=== PATIENT | female | born 1970 | race Two or more races ===

== ENCOUNTER 2024-10-11 08:01 | Outpatient (OUT) | payer OTHER, SELFPAY ==
--- NOTE | 2024-10-11 | PCN_ITS ---
CARDIAC STRESS TEST Requesting Physician: Shemar Rocha M.D. Procedure Date: 10/11/2024 TREADMILL STRESS TEST INDICATION FOR THE TEST: Chest pain and shortness of breath. The test was discussed with the patient in detail, including risks and benefits, and she was agreeable. Resting heart rate 69 beats per minute. Resting blood pressure 110/76 mm/Hg. The patient was exercised according standard Edward protocol, and she was able to finish 8 minutes and 59 seconds, achieving max METS of 10 and maximal heart rate of 123 beats per minute, which represents only 74% of age predicted maximal heart rate. The patient was not able to reach the desired heart rate due to leg fatigue. The patient also reported some jaw pain, 2/10, during exercise that resolved within 2 minute of rest. She denies any chest pain. Max blood pressure 160/90 mm/Hg. Resting blood pressure showed normal sinus rhythm, heart rate 67 beats per minute, no T or ST changes. EKG during exercises, at peak exercise, and during recovery phase does not shoe any significant T or ST changes or any arrhythmias. CONCLUSIONS: 1. Submaximal stress test, achieving only 74% of age predicted maximum heart rate due to fatigue; therefore, the stress test is considered to be non- diagnostic. 2. Good exercise tolerance. 3. Appropriate heart rate and blood pressure response to exercise. 4. This stress test is negative for exercise induced ischemic changes, as well as level of exercise which was achieved. 5. The patient had mild jaw pain, 2/10, during exercise, resolved within 2 minutes of rest. 6. Recommend to repeat stress test in the form of Lexiscan nuclear stress test to determine echocardiographic study to get adequate test for ischemia evaluation. MTDD
--- NOTE | 2024-10-11 09:58 | PC.NURSE ---
Nursing Note Cardiac Stress Test Reviewed: Medication, allergies and patient history reviewed. Stress Test: [ x] Patient tolerated stress test well. [ ] Patient unable to tolerate walking on treadmill. Switched to Lexiscan stress test. [ x] No chest pain noted per patient [ ] Chest pain that resolved prior to leaving stress lab. [ ] No dyspnea noted. [x ] Dyspnea that resolved prior to leaving stress lab. [x ] Patient left stress lab asymptomatic and hemodynamically stable. [ ] Patient taken to the Emergency Room due to non-resolving symptoms following stress test. [ ] Patient achieved target heart rate. [ x] Patient unable to achieve target heart rate. [ ] Aminophylline administered as reversal agent to Lexiscan (Regadenoson). [ ] Nitro administered. Nursing Comments:Pt had regular stress test done at this time. Pt unable to reach target HR due to fatigue and hip pain. Pt was stopped prior to reaching target HR. Pt had 2/10 jaw pain while exercising that went away within 2 minutes of rest. States this has happened in the past. No chest pain while exercising. Pt stated she felt back to normal prior to ending test.
== END 2024-10-11 08:02 | disposition home or self-care (01) ==
LOC: CARD 08:05
PROVIDERS: PCP Family Medicine; Visit Provider Family Medicine
DX: R07.2 Precordial pain (principal); I10 Essential (primary) hypertension; Z82.49 Family history of ischemic heart disease and other diseases of the circulatory system
CPT/HCPCS: 93017

== ENCOUNTER 2025-04-07 07:30 | Outpatient (OUT) | payer OTHER, SELFPAY ==
--- OUTSIDE RECORDS SUMMARY | 2025-04-07 07:34 | XMS_ITS | CCD ---
Author Organization [facility] CliniSynh Care Team Providers Care [employer] Service Attendant Name Role Phone Arnol Bill Attending Unavailable Arnol Bill Admitting Unavailable SHEMAR NUNEZ Consulting Unavailable SHEMAR NUNEZ Primary Care Unavailable SHEMAR NUNEZ Attending Unavailable SHEMAR NUNEZ Admitting Unavailable SHEMAR NUNEZ Primary Care Unavailable Arnol Bill Attending Unavailable Arnol Bill Admitting Unavailable Provider, None Primary Care Unavailable Shemar Nunez MD Primary Care Provider Shemar Nunez MD Primary Care Provider [phone] Shemar Nunez MD Primary Care Provider ALEXEY PETTIT Attending Unavailable ALEXEY PETTIT Attending Unavailable SHEMAR NUNEZ Attending Unavailable SHEMAR NUNEZ Attending Unavailable SHEMAR NUNEZ Referring Unavailable ALEXEY PETTIT Attending Unavailable SHEMAR NUNEZ Attending Unavailable Allergies Allergy Classification Reported Allergen(s) Allergy Type Date of Onset Reaction(s) Facility (1 source) Pseudoephedrine; Translations: [pseudoephedrine ] Drug Allergy [facility] [place] Repository (1 source) colophony; Translations: [colophony] Propensity to adverse reactions to drug (disorder) [facility] [place] Repository (13 sources) Pinus Strobus Propensity to adverse reactions 3 Unknown [facility] Medications Current Medications Medication Drug Class(es) Dates Sig (Normalized) Sig (Original) amLODIPine 5 mg oral tablet (17 sources) Dihydropyridine Calcium Channel Katharina Start: 08-23-2024 End: 08-15-2025 take 1 tablet by mouth once daily amLODIPine (Norvasc) 5 MG tablet Indications: Primary hypertension (CMS/HCC) Take 1 tablet (5 mg) by mouth Daily 90 tablet 1 02/16/2025 08/15/2025 Active Start: 02-12-2024 End: 08-23-2024 take 1 tablet by mouth once daily amLODIPine (Norvasc) 10 MG tablet Indications: Essential hypertension (CMS/HCC) Take 1 tablet (10 mg) by mouth Daily 30 tablet 5 02/12/2024 08/23/2024 Discontinued (Reorder) aspirin 81 mg delayed release oral tablet (9 sources) Platelet Aggregation Inhibitor, Nonsteroidal Anti-inflammatory Drug Start: 08-24-2024 End: 08-24-2025 take 1 tablet by mouth once daily aspirin 81 MG EC tablet Indications: Precordial chest pain , continuous churn buttermaker current use of antithrombotics/antiplatelets Take 1 tablet (81 mg) by mouth Daily 08/24/2024 08/24/2025 Active Inulin (13 sources) Inulin (Inulin F iber Prebiotic) 833.25 MG capsule as directed Orally Active Magnesium Bisglycinate 100 MG tablet (13 sources) take 2 capsules by mouth at bedtime Magnesium Bisglycinate 100 MG tablet Take 100 mg by mouth See administration instructions. 2 capsules orally at bedtime. Active Potassium Citrate granules (13 sources) Potassium Citrat e granules Take by mouth at bedtime. Active progesterone 200 mg oral capsule (13 sources) Progesterone Start: 01-09-2024 progesterone 200 MG capsule Take 200 mg by mouth See administration instructions 6 days a week 01/09/2024 Active Start: 01-09-2024 take 1 capsule by [facility] once daily progesterone 200 MG capsule Take 200 mg by mouth Daily 01/09/2024 Active Completed/Discontinued Medications Medication Drug Class(es) Dates Sig (Normalized) Sig (Original) Hormone Cream Base (HRT Cream Base Women) cream (5 sources) Start: 11-11-2024 End: 02-16-2025 Hormone Cream Base (HRT Cream Base Women) cream Indications: Hot flashes due to menopause , Menopausal syndrome Use 1 mL nightly days 1 through 25 of the month 11/11/2024 02/16/2025 Discontinued (Therapy completed) Start: 11-11-2024 Hormone Cream Base (HRT Cream Base Women) cream Indications: Hot flashes due to menopause , Menopausal syndrome Use 1 mL nightly days 1 through 25 of the month 11/11/2024 Active losartan potassium 100 mg oral tablet (17 sources) Angiotensin 2 Receptor Katharina Start: 02-12-2024 End: 08-15-2025 take 1 tablet by mouth once daily losartan (Cozaar) 100 MG tablet Indications: Essential hypertension (CMS/HCC) Take 1 tablet (100 mg) by mouth Daily 90 tablet 1 08/23/2024 02/16/2025 Discontinued (Reorder) miSOPROStol 0.2 mg oral tablet (4 sources) Prostaglandin E1 Analog Start: 09-14-2024 End: 11-11-2024 miSOPROStol (Cytotec) 200 MCG tablet Indications: Pelvic pain in female , Thickened endometrium Take all 4 tablets at bedtime the night before procedure 4 tablet 09/14/2024 11/11/2024 Discontinued (Therapy completed) nebivolol 10 mg oral tablet (17 sources) Start: 02-12-2024 End: 08-15-2025 take 1 tablet by mouth once daily nebivolol (Bystolic) 10 MG tablet Indications: Primary hypertension (CMS/HCC) Take 1 tablet (10 mg) by mouth Daily 90 tablet 1 08/23/2024 02/16/2025 Discontinued (Reorder) Problems Active Problems Problem Classification Problem Date Documented Da te Episodic/Chronic Abdominal pain (3 sources) Pain in female pelvis; Translations: [Pelvic and perineal pain] 09-14-2024 Episodic Chronic kidney disease (17 sources) Chronic kidney disease stage 2; Translations: [Chronic kidney disease, stage 2 (mild)] Onset: 06-17-2023 08-04-2024 Chronic Disorders of lipid metabolism (2 sources) Raised low density lipoprotein cholesterol; Translations: [Pure hypercholesterolemia , unspecified] 02-16-2025 Chronic Essential hypertension (19 sources) Essential hypertension; Translations: [Essential (primary) hypertension] Onset: 06-17-2023 08-23-2024 Chronic Genitourinary symptoms and ill-defined conditions (13 sources) Genuine stress incontinence; Translations: [Stress incontinence (female) (male)] Onset: 06-17-2023 06-17-2023 Chronic Genitourinary symptoms and ill-defined conditions (1 source) Urinary symptoms ; Translations: [Unspecified symptoms and signs involving the genitourinary system] 09-14-2024 Episodic Hypertension with complications and secondary hypertension (17 sources) Hypertensive renal disease; Translations: [Hypertensive chronic kidney disease with stage 1 through stage 4 chronic kidney disease, or unspecified chronic kidney disease] Onset: 06-17-2023 08-04-2024 Chronic Malaise and fatigue (13 sources) Chronic fatigue syndrome; Translations: [Chronic fatigue syndrome] Onset: 06-13-2019 10-30-2023 Chronic Menopausal disorders (20 sources) Menopausal syndrome; Translations: [Menopausal and female climacteric states] Onset: 06-17-2023 06-17-2023 Chronic Nonspecific chest pain (2 sources) Precordial pain; Translations: [Precordial pain] 08-23-2024 Episodic Nutritional deficiencies (13 sources) Vitamin D deficiency; Translations: [Vitamin D deficiency, unspecified] Onset: 06-17-2023 06-17-2023 Chronic Other aftercare (2 sources) Long-term current use of drug therapy; Translations: [USP (current) use of antithrombotics/anti platelets] 08-24-2024 Episodic Other connective tissue disease (2 sources) Female pelvic floor dysfunction; Translations: [Other specified disorders of muscle] 09-14-2024 Episodic Other gastrointestinal disorders (13 sources) Irritable bowel syndrome with diarrhea; Translations: [Irritable bowel syndrome with diarrhea] Onset: 06-17-2023 06-17-2023 Chronic Other gastrointestinal disorders (2 sources) Constipation; Translations: [Constipation, unspecified] 08-18-2024 Episodic Other nutritional; endocrine; and metabolic disorders (17 sources) Morbid obesity; Translations: [Morbid (severe) obesity due to excess calories] Onset: 06-17-2023 08-04-2024 Chronic Other screening for suspected conditions (not mental disorders or infectious disease) (1 source) Endometrium thickened; Translations: [Abnormal findings on diagnostic imaging of other specified body structures] 09-14-2024 Chronic Other screening for suspected conditions (not mental disorders or infectious disease) (6 sources) Patient encounter status; Translations: [Encounter for screening mammogram for malignant neoplasm of breast] 08-18-2024 Episodic Other upper respiratory disease (13 sources) Allergic rhinitis; Translations: [Allergic rhinitis, unspecified] Onset: 06-17-2023 06-17-2023 Chronic Ovarian cyst (3 sources) Cyst of left ovary; Translations: [Unspecified ovarian cyst, left side] 09-14-2024 Episodic Residual codes; unclassified (13 sources) Sleep dysfunction with arousal disturbance; Translations: [Other sleep disorders] Onset: 06-17-2023 06-17-2023 Chronic Residual codes; unclassified (2 sources) Family history of cardiac disorder; Translations: [Family history of ischemic heart disease and other diseases of the circulatory system] 08-23-2024 Episodic Residual codes; unclassified (2 sources) History of endometrial ablation; Translations: [Other specified postprocedural states] 08-18-2024 Episodic Residual codes; unclassified (2 sources) Active advance directive (copy within chart) ; Translations: [Other specified health status] 11-03-2024 Episodic Past or Other Problems Problem Classification Problem Date Documented Date Episodic/Chronic Allergic reactions (20 sources) Propensity to adverse reaction; Translations: [Other allergy status, other than to drugs and biological substances] Onset: 08-25-2019 10-30-2023 Episodic Biliary tract disease (13 sources) Cholelithiasis without obstruction; Translations: [Calculus of gallbladder without cholecystitis without obstruction] Onset: 08-26-2023 08-26-2023 Episodic Other connective tissue disease (13 sources) Peroneal tendinitis of left lower limb; Translations: [Peroneal tendinitis, left leg] Onset: 06-17-2023 Resolved: 10-30-2023 10-30-2023 Episodic Other connective tissue disease (13 sources) Plantar fasciitis; Translations: [Plantar fascial fibromatosis] Onset: 06-17-2023 Resolved: 10-30-2023 10-30-2023 Episodic Results Test Name Value Interpretation Reference Range Facility BI MAMMOGRAM SCREENING TOMOS YISIDRAIS BILATERALon 02-21-2025 BI MAMMOGRAM SCREENING TOMOSYNTHESIS BILATERAL This is a summary report. The complete report is available in the patient's medical record. If you cannot access the medical record, please contact the sending organization for a detailed fax or copy. Examination: BI MAMMOGRAM SCREENING TOMOSYNTHESIS BILATERAL Clinical History: screen breast ca Technique: Screening digital mammography study of both breasts was performed with 2-D and 3-D tomosynthesis imaging. Study was compared to the prior exam dated 12/12/2023. Findings: There is no evidence of interval dominant spiculated mass, grouped microcalcifications, or skin thickening which would be suggestive of malignancy. A few benign-appearing calcifications are seen on the left. Partially visualized axillary lymph nodes are noted bilaterally which appear grossly unremarkable. IMPRESSION: Impression: No specific evidence of malignancy seen in either breast. BIRADS 2 - Benign Findings DENSITY: There are scattered areas of fibroglandular density. FOLLOW-UP: Routine Screening Mammogram ELECTRONICALLY SIGNED BY: Porter Ann M.D. Normal Not Available Urinalysis macro (dipstick) panel (U)on 09-14-2024 Bilirubin, UA Negative Negative - 4(70) +++ mg/dL [facility] Blood, UA Negative Negative - 50 Derek/mcL [facility] Clarity, UA Clear [facility] Color, UA Yellow [facility] Glucose, UA Negative Negative - 1999(110) ++++ mg/dL [facility] Interpretation and review of laboratory results Normal [facility] Ketones, UA Negative Negative - 160(16) ++++ mg/dL [facility] Leukocytes, UA Negative Negative - 500+++ Ed/mcL [facility] Nitrite, UA Negative Negative - Positive [facility] pH, UA 6 5 - 9 [facility] Protein, UA Negative Negative - 1999(20) ++++ mg/dL [facility] Spec Grav, UA 1.01 1 - 1.03 [facility] Urobilinogen, UA 1.0 0.2 - 12 mg/dL [facility] Provider Orderson 11-05-2023 Provider Orders [id number] Provider Orders [id number] 05-29-2023 Coding Summary HTMLBase 64 BlzdhateHDj9oPe+PGhl YWQ+FC1XEGLfM14frSLu rA4uZ1WIDUaJIlxuKLGT DVlZEuIbhoXcCE8zmZRy ZXJu IC8+BR7gUQEbWrpifANz k9F7jGN1K02gsy4bRTvb sGY6DISlGdTuwdmco9tr mTp4QMbiNyjrPyMu IJMuyB60QUY7oW97Ap38 lFEheKGfn2xidOz5UbDw VRQsURY4nItiMEzvg8Ng XIDoV10auTEwn3S9 IGNvbGxhcHNlOyBlbXB0 wD0dRGqslrwxn1zzpifq Opw8ll43tOLyf4F3zDZ5 E8RovpF7EMCslEFe DpyqeXSUoA5dwwyso9zs sdtkQqLrALUqXOy8FHm5 BCUdhXbbCuLaBZ08XOR0 JBAwkkKxY8PcQKSk vYknXkN2f0L6Qk6LD7VO YznnB3EVOZYTPGsmnMD+ ZC40en67Z2QtJwyrIan0 ITEnIAG8bIX6qS7g KLLeKAaer5O5xKL1R6Po tbQwsl0oq8wpPVTcPJyx R90pfALfd3J8PVYrnPT5 MMUvoZzcNhKpjY02 Oyc+KSOfzNvvc7DkDvmc k4cne2gdnFk8GquxEKTv jyDtdOcnLPR6o5EaDd2s FFBhcQE3jJC0pT2u EdQbLmT3WOsvK668YiFe sBMfDpaeZ35gN1HhbRJ+ ROHlEmm4XGMwzStpNQ0m R9HrBFXsmiuedYVl nIfbUK9vHGTiibujTUAs eC8sRRFjB0k1PgCiWiJ4 VWooO9AnOCNtzbrjWy41 lF3oOgFcClU4EIuh R2MkgvH2OIZrwAKaQVqq IGU5O37je2F8FXRmDVTb BWG1oAG2qB1kfTmbqiia bGVmdDsgdmVydGlj DZunRNtcZ109RNPwoZsq PkNvZGluZyBEYXRlOiAg MDcvMDYvMjAyMzwvdGQ+ PZWaFDR6zNhdFWBv sZJuZRulSu2ojWbmjGrv EG7kZOCyuillBEMmtY4n XGYgxFOnvNxdVN6lPOJt rjdsm033CiWfRLS9 LWZtuPGvZ9LkdH7hToMk KPZzCJZcH7CgsBGtBScg Q792YJqnJeM2CNUftxQl X4PlJXDzvVjwVzT0 d9T5Pe4Ak6GvxiioM8Le uNFiEjCkCxxvVVo6I9Hc PjwvdHI+HT27UFBuFL91 ZCk7DJS7dSbhFMak BSYjB5BmuP4eUpGlGIVq ZGRkOyc+PHRhYmxlIHdp ZHRoPScxMDAlJyBzdHls UQ1wSp0qTFZiFTLn bKiuoWNxRdOnt3ksGDTo LPuuBD3rhOouL1UtnHM7 WWBjm8g8Bp38H19xZ2Ce dXA+INNtfUK2mPA1 rE4kMoRxTdS5QMgiM027 SlZsmDSwTkqag7jje5bc mUy8AmC2OBXzqkGybHds VWH6l2CbFa67I92j IHdpZHRoPSIxNSUiIHZh iVidnk9dvY7mLg8+PGNv wOZ6iLG7dM3jBzHzNiN6 QHbwB507BjDysIBq Odfmz4bhe5ufsAc9WnAx SBUdsxYgsKetZOQ2z6Yz Gj40J2GuaJlxw7XuXzs6 oh81jELgh2G2sIP9 N5CpQMLnchkrvOUlnDlj OB5cKOAunglxRYXnyU8e JCQeF2r2HbJpKjP4USps U3JvphI6JNAfoWFx CIHweSJSzM0hgsaxr4ur lcgfCeXeUXJiUSe1ZDj6 MPXhzFwlUoTgICX1YeE3 TTZ4jVYjzU9zmAyq psfjqW1sKvg+CVZ9vSGr vZDPPB4aRmjbaBF+PHRk ZTG7wWecFPnlETNuaW9q VZPlD6b1CxDfVvI7 YXxhP1CsixY6VTMvbGIz LQOfrRGDuV0qaekwq0sk ineaAaJjXDMcEId0EDi8 LWFsaWduOiBsZWZ0 GjX7HSV6jNJsnA8hdCgo tzbuaM9vSqj+QmlydGgg LVS0FGd3C0KzUqq1ANCt iKzfZA3owRNhZHpm Eb8aqIktvHcvMW4fTEUg hgfih330GeXqn7ohAPEi wYCzYDxbCUW1W10ja5E1 FPNhIDPjPEB6aZX9 jN1hdZqmsgtptPGvvUhz nlEggNvwOMsmYUxwR193 BURwuZneZbRzBDe3I6Mf Dap6XQHbeEluEH4o cEZoLEmbKc7cxXkctOcd FH3rQEOwzqpwq845LuZi p0vbTWOhaFNtXSiiEPA8 O50hb4P3BIQhCJCu UAQ8gDS8qW0wjGzemqaz bGVmdDsgdmVydGljYWwt CMgaG552XNLsmXulIyMu uLm4P4DzUcq8FZMd lAgjGO7irJAqPQasJo0e tPgfiEgcUJ8vJLCvkkcz g971HwCfp6ajOHEuoYZt ERlcYXY4L22ck7C2 FDZqHIGhRHR4fDS1pQ4n bGlnbjogbGVmdDsgdmVy rLlkNLalDVshM023UJQm cDsnPlBhdGllbnQg AJrjMPe5K4UtBtyebVB+ ML96DILzUY43pQBtpAPk r9gemDs2DfQlLKCgCCF8 qUiqPTszg0YyAXMp X79zdLBsl6Y8SBPhqIvq cOXzUdRirGE3kS7lVKzw ofnzd5vpizlsPdkqt7qc ca68hS29W04iKKmt ZHRoPSIzMCUiIHZhbGln vk2vqZ6wXi7+PGNvbCB3 sLO4kH2lIUGnZoG1EIpi V698YfNpfDYcNzcw w0gxu1wumVi1GvQ5BXRp gvMpxVynGBY3v1GbBe54 W84vKOceURGeBFLwFSAn WRKwuMcrca3inL4h Ii8+YICyxOR7iKT0oA2n ZjRmYsL7TAqvR977XaLm mMPrHkcpH05mE2RwfIG+ SZOrGwn3BISqnUqh OR3daHUkHKniMo1oMCJ7 OvRcCgOyZJanD5ScYFOk sjwggviawKD0POYgGRAx nV08Ev3jxBynCCEy tMRXqS9fhwqpn1vkrzdk DaToYZMoUKu9LVm9BNFg hUblSzSsBYL6FbA6AOZ7 eASvuN4vxTkeensx jG3xA3NvBEGbecgbWa33 iD5cBeZnOzX4DRzuJgv+ A4vNZPQRRWgYW9SvEHUZ VWKKBPvKZr75F5Xq Mjw6TRTapSihUN2rfDAt WLifZx7ndTcevFheFV3e QLHzavvlEFMgiS9lYBMr uMIheSsdGS8zQEFf ylfru768XjDlLZB9BHPb tJNoT2DnvQ1yRmMqFPHr MPGhV9SsfDMtJRolJ838 XSyuItO0ZJAxncSa Y2NpSATrcVfkAbL4q7R1 Sr8yBY8qDJ5tGTW8AI27 DD23fMHxw6O5sML8C1Ak ZGRpbmctcmlnaHQ6 SHYhDDSazI79aJJhNHph Yp9vd4J7g011CBCjTSMv fE53Xr8jcCfkSOOvbZIC cF8ifmjbp6entede HvXmNBLpPWk4KSl7OUNu gXwdPsBsSJN6WfV4WXF4 gVTgiB3tzLmmmmghkM4i Oyc+NTMgWWVhcnM8 J2ReYnh3EHTomCwwUN3f zZMaCRmlLe4tlCxyjKyo TH3wOKGkhefsUYTgoV5e DNJbqATpbEyaNM9o SEWzgszwk649BsCyNJL0 BYItgLMjM4WlkB5fLvLx VJGqIBIqZ4YnuBNjHLbq G345DSqtAeM0TDFm flDvZ6QmBKPzaWeyTuY3 p1I7Ge5MIT2JYYZ3L9Dh Ixa5FBBcqQbnRZ7orVTt SCnmXs1fbOmzdSyn CO0zYLDdjwlqHBVxlO0u RGWwyBZuzHrzMI7mZZTm ikppq942OtAnSBY0NQCz vZIyA9RdoL3rEcIo FHWeEMYpB8JyoBUpDKpt C771EKncAyA9ZPWeumWn D9DtSMHjjTbxXdL0g5Z8 Vd2DfNChG6TuD0c1 Q1HsMaolcDA+NX34WTPo PU19tUXgeQEuu9vkgJv0 HyUnFUYdVOH6eIixTAhm u5HmCPFcB80muUQi w1K5OGHcxOuujRViYmQt lAO6dL7vYErljvnob9my ucikHarnc0iqni31iP12 H27mXHaiDNEnHOEx XOUqSQVecLsyrk2xkB5v Ii8+JPJwsBI1cJD1oU3c OoTuFbI3ARvlA341KnLx oDHgTuhjx7eor1mq uOq3RmEqADTffcUfoQvb JYW3l8OwMd84A06mAPmr ZHRoPSIyMCUiIHZhbGln wb8nvB9wNn6+PC9j i4zamo77mL43eNL+PHRk DTY0uLphBFbkUIAtyK8z SGxaBlX5QJTvTbCdcX72 pRJdCWmbZp0eaOlk xHbsHH1kPIWdzsssz035 RlLxp7adQURmvZSdGIyl ILI0G11id5M3AGHxEXKg ROU9tEX3bG8ruVou bjogbGVmdDsgdmVydGlj QWnaDTvtM465VSZmiBuq ZeTekCHqN6ltekCCWI5y OjwvdGQ+PHRkIHN0 hSzqYIwlBCXnpY7zFOIi W4o2JwIdToR2GRezW9Zg coS6XCBrxWEdCRKmsAJL fT2seslkn0obmbox LvGhXVUyGOm7QPk0XDSg cUsvHjUqAWI4WoX3HFJ3 dMEpnU5suLdpehqecX0h Oyc+RklOOjwvdGQ+ PHTmJSY1iCquFKuePLOs cZ3pXFNuT0d9ClZxBdT3 CTueA9DjjcR1AUGhlKCh HKUfhCATtH4rvpvm z5appzumFbJnKQHiEBr7 VSa6TMGdwCwjWdQeKYO1 HlK5XMA8nEHusO0lhCss cvesuQ9wSkl+TVJO OjwvdGQ+QJZnADB9sGgq CAelWKOsyX7yXOMhP2a2 AbEhXuU4XPapA2GwziU1 IGJvbGQgMTBwdCBU pF1jzeiis1xjjppyFnDv SOGiOFp0YHi0BNZkiPct DwIkCKC4PpW8QHJ9yBOp wD5kwAgnmvsvwM6u Oyc+TPB1ZTX2BQ92LU33 O5LfPkmotEUudFO+PHRh YmxlIHdpZHRoPScxMDAl ToVxyYneWP8bFj3j ZGV (more content not included)... [facility] Coding Summary HTMLBase 64 QmubutahWGo8iCu+PGhl YWQ+AM0VEFPeY78bwOCq sT2kI6QCKCdFSkveVGGB CQdPKmBmdgVlQT4pbXSk ZXJu IC8+JO8iBNPmMeuqbHDr e1D6dFX2F39wee3rYEzm iES8HECwOuPmwkplm5fu nHs0AZbtRhtnTjOd XAEneC60REO8pM25Ud29 kXBebHAck2izzUm8CbKd VCMvHUM7cApzYBfww3Ea UNStT03imYKzy2Z4 IGNvbGxhcHNlOyBlbXB0 iX3aZHgfxgbkj7xdwkjm Xuo6no46vCGrr7J2dMR2 Y0DffnT0EYPhpJVi PkzhdCNPmZ1evghtg3qu cqceBgPrFGUgAEj3DTj5 ULPfdHroAxJwKG48VFP9 JJIsvfZqC1XfTPZa wIqaZpA9q3P7Yd4WR3XA QgsgQ0LWKGMDWSmxmFS+ AS03nv62F8AeNagvKma1 MARvKWK6cHQ3lI6u FJTnCWaoa9H4vEP7M2Rq syVjeq4bp9blUYIdEVtn I14ukUYdr5P8DBMuuNF2 LKAccVpiTsWjhF07 Oyc+WNPrlRbap2AkGktd r4zyh8dhkSs0AjjtIIZr nkCvqMyhLUM5h6ZyJp5z MHJtxTO9mLZ4gN9g MwNnSfP9MMblT915WkCn nKKzQysoA42dO7KddEV+ DWAiFwl0SEJudMxsXW1d E5OlLGDhlxsfvQEj mLcrDN9dWKKedwcdSEWj hH0gSXRiX2d3NkEpVdT9 EDtjE1MtJKBfjgfiQq17 rE1tLrAmWuH5TCah Z0GqvpJ7DXWquMVfNNzh DBT5O79wy8O8YOTkJHTm ZPG3cKU7eS0txFdwpifj bGVmdDsgdmVydGlj ERybMRmeL392ZYGbkVpu PkNvZGluZyBEYXRlOiAg MDcvMDYvMjAyMzwvdGQ+ PUVeRAE7fVzkPZEu dHIkKLryBp4dlZxnsHwi BI2kDTXebvbxNTRgvW3g ZVGksVZnhGksVH5wONBb gmuzg459EiViEGD0 XWOcrGOcN0SrsV1fWnMv NGNySMNsK9IywAGgKHin G029HAsuOrG8XRBmmxQi W4FhYMZiiOnwDuN5 s3N0So3At3LfbufdL1Nk vGNpGxTsMjveEKv4M4Rz PjwvdHI+ZQ37BBBgFR09 CUx1IFB6bBtfFImn OTEuR2OahF1kIdIeUFVk ZGRkOyc+PHRhYmxlIHdp ZHRoPScxMDAlJyBzdHls PU3bIv3qYYMfZKOu qJjwxXLzSyHfp8cyDRPr ATpyJF9axFokS9VdsGD7 UFWup2e9Id90N19eE4Mx dXA+HGRmbOF4cRI4 bR8eIlWqHuA1TYdlZ214 XxYinOIkKxtto7tme6vv yVp1JeV2HMZloeCixFrt ZWN5f0ScNn25T28i IHdpZHRoPSIxNSUiIHZh mKbeuw5vrV9hUl8+PGNv xLV5lVL9mF9cGbVoAcF2 WQleU349VoAljSBp Fmand5pgb7zlhKx1VpFk IDQffsHkiTrnCJT1d0Be Ap73I7KbzOvik4HeMzu8 qe56zWPeo6G8xZC1 O3WcGVDcckmnjZXlkZub DB9fYEJrmsagMBQhiP6v DBJmD1z4DiWqJcO2ATgw F1JuzpK7IOFlvEMa BGSvzDQNiE3kkhblc1tw rxplKtHoTDZeXEv4MMb5 MVJrpRakHcDdEQH2RaY2 FTM6mWQaaR6liDmv uibspO3yOyc+YLJ6vRPp sUEWFR8uKcgbhQM+PHRk FMV3zHvkESgjMCWdyG3c SLMuT3a0XqLsOnN1 RVkzE1RqsdR7ORQdtSTp AEFsoJXCuW0ybvdly0gc nqfeDyYrEQDdVVa5NUz9 LWFsaWduOiBsZWZ0 YtI0UOT4bBGubM8goRrw aveaoP4aOle+QmlydGgg QYL4NIk3U9RvBiz9TTIl mVrjHX9jcVSiLLfx Sq3qmKexcIqtHE1cRJCm rziwd981XmNda1eqTMTt wICcABnvXJU0W35cv6U1 UCZlQVEuYRQ2bLC8 bN9axKyqvxzudFRlgLet qaOyzDmkOSuoSMhzL165 MDGkhRfaDtAgBIr4V0Bi Npg5AIHbeBumPO2a mIZbOOxdZc0hpQvedPgx XU8wJZNtgpgik004XtXf q5fzHDYkwXBeRUefJGF7 L35bh9K4ZSTsPXSz GLJ1lJG0lQ9ynCgbbskn bGVmdDsgdmVydGljYWwt TVdzQ729GBWsoQrlZvJx cBw0B0LmRhg8HYKl iWwxKS6ioDHwCYxoYk1m aYroeEgtBW6eAUIvcfgl d199GsFtw5lsSNEuyZUb YVrzJAG6H71bf2M0 QNBaJTVeEMM7aXI2cG5p bGlnbjogbGVmdDsgdmVy yRmkWImsZRxaO082LSCw cDsnPlBhdGllbnQg PKkeJSq4I3QzWggukRE+ DG29UDEoFI76jFNjwKMp j2cwmHk3CkTrXAHqPUS2 dBneLYwhg7YqJSCz E48fmULak6P3BWIjxYcy lQGyPzEqrZO7fD2gIYsc lwjle4xptmmmCjzij8xo zb10lR19R32mADme ZHRoPSIzMCUiIHZhbGln ft9hnO6rCq4+PGNvbCB3 oVP1iJ1fDBDfAzF4BGxx Y551VjWcvFDwQgai i7vqo3rrnVw5OfZ9EULg bqVffLrlQCU2b0IwHn35 M93aDUukMQZfFLEkAUMq YCFnoNzrac4itQ7f Ii8+MFBadQH5fGC5aQ1a VbPxDiB2GWknP135IfLy uJEbRfgkD90xM0XcpXA+ DBRbSgz4RQTcwVtq TU0ykXHwRSpuYz2sFNG4 QvKoXwQoOCopM0HqDTSr dljjdnbvgPV1JDJnKPCc cH26Cp5bxLstSNKp eTHAvD0ltmgod6ypydar XxNeGSHqBJa4ODq9WMFt yJppQaFhVBK3MfJ2TET3 lVWneZ5xcVavpgar vR2qG2VhUHWskttuQa69 lX3oLfKgCqK7BHabTnv+ E6tYPGLJRUcPP6DrPZEP BBLQOSkWQm17N6He Wvo9SCGgqIgoRG3ooCWr PCleYs1avOkoqBqxQT5f IDUqynguGDEgkO5aNMBx zWZweDsrTH0aUOJk fcaol929PrMlQTB4OVLk dPVcL9PkdU3aTlQoZKDh RUNhD3TzxJQpNTcxG306 PBufOyE0FGUykmBs B9VvGWYloWccBcQ6t5Z4 Ny4hJZ2qKT2jSGZ2RV02 ZN28mHVpd7K9cHK9S7Sp ZGRpbmctcmlnaHQ6 SPAzBRBzuE43mXMaOTle Ce5pc7D6a570IIQzLBSg tI76Jg8fnEnwDEDmzRYW rA9kpdrgb5kzqjrp RjZuHWXxZDf2WKd1GERw xQypZdPtXYL4MxD5ODC9 xKHipS6bfGnmyvlptY2i Oyc+NTMgWWVhcnM8 S8JjUke5PKBuhFzmZQ4b mFQrNEtkEb9mbPxyfChp JM1xQNCaohypGMHdeU7f XIRzaMHybOwsCQ2s NZZyksmtk474LwRxFRN2 QFZoxGVmF3ImuT5rTvQj NDZpYKOgJ8YlqSMqCHmf G620EJcaOeX8FCRh hzVoB5BxQRNgpAbnLtR6 x7F6Jt7FVF2VILP7J7Ol Gya9LBXsyZqbDR1pkVXr VNgyCz7liGlxfOik YF8bQFBofntoKNKnwN1l FHMrdXVvkGntSQ3sWIWu jfnxq229DgSmLAM8BFGp aLZyX0YjlA6sWoEi HKWtOGGfC8PmuDZdYVpe B128EUodAaN8TQRdmcRl I2BzAAMdhGsfPhE9d9P5 Jd0GKFhtzER+PC90 nn22R1XlMqgzQvo3UTTu FQF1mQG3uE8uMXGkMAgr w8R1iGD7U0ZrvvRfot0n h1suOVTkOKvxM60a mJQcu7H7FVSmdOM2JGSl aMhwKzQcuS49Zyh+PGNv cEhoe3CnIvzjh6euf2uw sKy3WpShFGHalaFr qVirCSW2n4KkJn95D31v IHdpZHRoPSIzMCUiIHZh rWfsdz2jeQ8mFp3+PGNv nRD5pHB1dP1nWyNj ZlJ9NOhlO944DvDngNDo Kqrmu3joy2ybgCw2NiOj AZMuvjVlnCysBYU7a2Ci Bd63G5RfpJknd2Ri Qtz6ht50sEJfz8F2jZY4 H9PmAZWymveicZMyhCrr RV2qXTIiirpzHUVmwX4d BCZiZ3d6XyPeVfQ8 VHajM9BwynP8YQLwoBLn XYMcnJEJsK2jnpoux5fw efspBcAuJAKzOWt4IFt2 LWFsaWduOiBsZWZ0 BgS8XGE2eESvzB4psPlh vhtfvU8yBmb+LMb2a6sf hVEhMN9oyKQ9ZN39DJ95 zUWbz3G5aYK2Y9Aq GBRgownywacesRL9QIYb FIFuqU01Ke6fnQkhCn1s PEGoWRL5GOKsaHRfU5Kh qI1uVkXuQULvFSVk M7GjvWLlWZiuA654SEov QuY5LCTmjaMjF5DlSMGx eDflZpS7x2R4Ew0UGZ93 AP82CI86aNQob6U8 mKS9D0IsSNBxnzbrbkej gWK8RRFmUWRsxN59Wj8b qFvqJf5dMWKsHYN7RPCn cYDhG7AfsN1cLhZx SWNhHKJkF9JhbBQjCIaa X057DCuqRbZ0FMUorcFj V6YfFYUxeOauMgN0i8B6 Tf2QCi62BD66QQ99 wDUmx3C5yOB2T4TkWUOn pluhzrxvgQL5CWRnWLZt oJ93Zx2doGedIg8wYSLc ZCF4XODefREyC5Ca kY9zAiPpKJCcOSYoR9Fi bQZlZClrB871XYjqAlB8 EFDpmtSwE6GiLJItiCmx EzM7y1H6By4MEQzu cod2Y7VjDcyczUC+PC90 IPCoEM33tRWpuKRda8dx bCu8WvVrJZOyBKL2cNmt YEgky0BmWKXdY00t [facility] (more content not included)... [facility] US RUQon 05-26-2023 US RUQ CLINICAL HISTORY: Upper abdominal pain. COMPARISON: CT abdomen and pelvis 05/22/2023. TECHNIQUE: Transabdominal ultrasound of the right upper quadrant was performed. FINDINGS: The study is mildly limited by the patient's body habitus. The pancreas appears mildly echogenic, which appears related to mild fatty infiltration on the recent CT. An approximately 1.2 x 1.0 x 0.9 cm simple cyst is noted within the superficial aspect of the otherwise unremarkable ?appearing liver. An approximately 6 mm gallstone is noted within an otherwise unremarkable appearing gallbladder. No reported sonographic Le's sign. There is no abnormal gallbladder distention, wall thickening, pericholecystic fluid, biliary dilatation, ascites, or other findings of concern identified. The common duct measures approximately 3 to 4 mm in caliber at the jorge hepatis. IMPRESSION: CHOLELITHIASIS WITHOUT EVIDENCE OF CHOLECYSTITIS. APPROXIMATELY 1.2 CM SIMPLE LIVER CYST. Final Signed (Electronic Signature): Jeffry Shelley MD 05/28/23 2:40 pm Technologist: JAMA ALLRED [facility] ED Clinical Summaryon 2022 ED Clinical Summary [facility] [place] - Emergency Department [address] [place] [address] ED Clinical Summary PERSON INFORMATION Name: PILI OREILLY Age: 52 Years Sex: FEMALE : 1970 MRN: Acct#: Visit Reason: Chest pain; Body aches; ABDOMINAL/CHEST PAIN Arrival: 05/22/2023 20:02:36 Discharge: 05/22/2023 22:53:00 LOS: 000 02:51 Check In: 05/22/2023 20:02:36 Checkout:05/22/2023 22:53:00 Address: [address] [place] [address] PCP: Provider, None PROVIDER INFORMATION Provider Role Assigned Unassigned Arnol Bill DO ED Provider 05/22/2023 20:11:20 Berenice Causey 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 Nurse 05/22/2023 20:40:02 VITALS INFORMATION Vital Sign Triage Latest Temperature Tympanic Temperature Temporal Artery Pulse Rate 84 bpm 85 bpm O2 Sat 99 % 98 % Respiratory Rate 14 br/min 11 br/min Blood Pressure /86 mmHg /86 mmHg MEDICAL INFORMATION Medications Given: Medication Dose Route Sodium Chloride 0.9% intravenous solution 1,000 mL 1000 mL Initial Volume 250 mL/hr IV Left Antecubital Fossa ketorolac 30 mg IV Push ondansetron 4 mg IV Push Allergy Information: pseudoephedrine; colophony PHYSICIAN DOCUMENTATION DISCHARGE INFORMATION: Discharge Disposition: Home Discharge Location: Home PATIENT EDUCATION INFORMATION Instructions: Abdominal Pain, Adult Follow-Up: With: Address: When: Cole Billings [address] [place], [place] [id number] [facility] (1) In 3 days 05/25/2023 With: Address: When: None Provider [address] [place] [address] Within 3 to 5 days Comments: home return as needed One pain pill for home, if needed Obtain Ultrasound follow up with your physician, or Dr Cole Billings, Gen Surgeon, [facility] Return, if fever, vomit, or unrelieved pain T H OMLEY< ER PHYSICIAN< H B [facility] DIAGNOSIS: Intermittent upper abdominal pain Patient Understands: Yes - Patient/family/careg iver verbalizes understanding of instructions given Comment: [facility] ED Note - Otheron 05-23-2023 ED Note - Other [id number] #1.00OTGTIFF [facility] ED Note - Other [id number] #1.00OTGTIFF [facility] ED Patient Summaryon 023 ED Patient Summary [facility] - Emergency Department [address] [place] [address] [id number] PATIENT DISCHARGE INSTRUCTIONS Patient Information Name: PILI OREILLY Age: 52 Years Date of : 1970 Reason For Visit: Chest pain; Body aches; ABDOMINAL/CHEST PAIN Arrival Time: 05/22/2023 20:02:36 Primary Care Physician: Provider, None Attending Physician: Arnol Bill DO Comment: Visit Diagnosis: Diagnoses This Visit Body aches ([id number]) Chest pain ([id number]) Intermittent upper abdominal pain (R10.10) The Pharmacy at [facility] is open Friday through Friday from 9A to 6P and Friday and Friday from 9A to 5P Prescription Information: If you have been given a prescription for narcotics, seek immediate medical attention if you have any difficulty breathing or any sudden status changes such as confusion and sleepiness. If you or anyone you know is experiencing suicidal thoughts, mental health, alcohol and/or drug addiction problems; contact the [facility] 16/06 Crisis Hotline -Text 4HUDM px 480242. If you received any narcotics, sedation, or any other medication that causes drowsiness for the next 24 hours, unless otherwise directed: ? Do not drive a car. ? Do not operate machinery such as power tools, lawn mowers, drills, sewing machines, or stoves ? Avoid alcoholic beverages and drugs for allergies, nerves, or sleep ? Do not make important personal or business decisions or sign any legal documents With: Address: When: Cole Billings [address] [place], [place] [id number] Business (1) In 3 days 05/25/2023 With: Address: When: None Provider [address] [place] [address] Within 3 to 5 days Comments: home return as needed One pain pill for home, if needed Obtain Ultrasound follow up with your physician, or Dr Cole Billings, [facility] Surgeon, [facility] Return, if fever, vomit, or unrelieved pain T H ZAIDA< ER PHYSICIAN< H B [facility] Medication Information: The exam and treatment you received today in the [facility] Emergency Department were for an urgent problem and are not intended as complete care. It is important for you to follow up with a doctor, nurse practitioner, or physician?s marketing support assistant for ongoing care. If your symptoms become worse or you do not improve as expected and you are unable to reach your usual health care provider, you should return to the Emergency Department, we are available 24 hours a day. For those patients who have received Radiology results, the interpretation of your X-ray as given to you by our Emergency Department physician is only a preliminary report. The Radiologist will review your films and if there is a change in the diagnosis you will be notified by phone. Please make sure you have provided a working phone number so we can reach you if necessary. In the event that you had a lab culture while you were a patient in the Emergency Department, you will be notified by phone if there is a need to change your antibiotic. Please make sure you have provided a working phone number so we can reach you if necessary. [facility] Emergency Department has provided you with a complete list of medications post discharge. Please inform your tire stripper/provider of your visit and for further instruction on these medications. Any specific questions regarding your chronic medications and dosages should be discussed with your primary care physician(s) and/or pharmacist. New Medications Printed Prescriptions [facility] [place] Prescription (ultrasound right upper quad) for upper abd pain. Refills: 0. Medications to Continue That Have Not Changed Other Medications amLODIPine (amLODIPine 10 mg oral tablet) take 1 tablet by mouth once daily. buPROPion (buPROPion 150 mg/24 hours (XL) oral tablet, extended release) 1 tab(s) Oral Every 24 hours scheduled. Refills: 11. clobetasol topical (clobetasol 0.025% topical cream) 1 melina Topical 2 times a day. losartan (losartan 100 mg oral tablet) take 1 tablet by mouth once daily. progesterone (progesterone 100 mg oral capsule) 4 cap(s) Oral every day for 7 Days. triamcinolone topical (Trianex) Topical 2 times a day. Visit Information Allergies: Substance Reaction Symptoms Type Comments colophony Drug pseudoephedrine Drug Vital Signs: Vitals and Measurements this Visit (last charted value for your 05/22/2023 visit) Vital Signs This Visit Temperature Temporal: 36.9 DegC Peripheral Pulse Rate: 85 bpm Heart Rate Monitored: 79 bpm Respiratory Rate: 11 br/min Systolic Blood Pressure: 132 mmHg Diastolic Blood Pressure: 85 mmHg Mean Arterial Pressure, Cuff-Calculation: 98 mmHg Mean Arterial Pressure Cuff-Monitor: 112 mmHg SpO2: 98 % Oxygen Therapy: Room air Measurements This Visit Height/Length Dosin.180 cm Height/Length Es (more content not included)... Normal [facility] Electronic Messagingon 05-23 Electronic Messaging --- --- --- --- --- --- --- --- --- From: Tyrone ([email or web address]), Directtest To: PILI OREILLY Sent: 05/23/23 05:44:46 AM EDT Subject: Discharge Summary Ready to View A summary regarding your recent visit is available in the Documents section of your Health Record. Normal [facility] Lipaseon 05-23-2023 Lipase Level 44.0 IU/L Normal 22.0-51.0 [facility] Comment on above: Performed By: #### 2 815295, [id number], 5784887, [id number], 75147409, 0805210429, [id number] ####[facility] (DEFAULT)[address] [place] [address] .Auto Diff 1on 05-22-2023 Auto [place] % 8 % Normal 1-12 [facility] Comment on above: Performed By: #### 2 948742, [id number], 4931785, 0991734706, 54034853, 0869906749, [id number] ####[facility] (DEFAULT)[address] [place] [address] Baso Abs# 0.0 x10 Normal 0.0-0.2 [facility] Comment on above: Performed By: #### 2 081853, [id number], 2198019, 0662664635, 16656645, 4904216038, [id number] ####[facility] (DEFAULT)[address] [place] [address] Basophils/100 WBC (Bld) 0.7 % Normal 0.2-2.0 [facility] Comment on above: Performed By: #### 2 944802, 5375756307, 1180530, 1359576562, 91525238, 7458357019, [id number] ####[facility] (DEFAULT)[address] [place], [place] [id number] Eos Abs# 0.2 x10 Normal 0.0-0.4 [facility] Comment on above: Performed By: #### 2 394869, [id number], 6568089, 4198749822, 08751375, 7410305281, 0370192191 ####[facility] (DEFAULT)[address] [place] [address] Eosinophils/100 WBC (Bld) 3.5 % Normal 0.9-4.0 [facility] Comment on above: Performed By: #### 2 232040, 6305911715, 9390686, 8159349339, 60499538, 9422623909, 8671480340 ####[facility] (DEFAULT)[address] [place] [address] Lymph Abs# 1.1 x10 Low 1.3-2.9 [facility] Comment on above: Performed By: #### 2 955724, 9112950266, 6373029, 5400088242, 61918102, 1629786655, 5924684061 ####[facility] (DEFAULT)[address] [place] [address] Lymphocytes/100 WBC (Bld) 23 % Normal 14-48 [facility] Comment on above: Performed By: #### 2 861945, 7550170247, 6613540, 6757536705, 20489785, 3455248766, 6906873289 ####[facility] (DEFAULT)[address] [place] [address] [place] Abs# 0.4 x10 Normal 0.0-0.8 [facility] Comment on above: Performed By: #### 2 941291, 3843322691, 1819034, 0413486691, 14321302, 6781065189, 5455753593 ####[facility] (DEFAULT)[address] [place] [address] Neut Abs# 3.1 x10 Normal 1.5-9.2 [facility] Comment on above: Performed By: #### 2 283327, 6082699631, 2382715, 0743041616, 63351793, 6144296752, 8446307099 ####[facility] (DEFAULT)[address] [place] [address] Neutrophils/100 WBC (Bld) 65 % Normal 44-88 [facility] Comment on above: Performed By: #### 2 251626, 7174057901, 8879076, 3140156960, 62304438, 7455501615, 8766264156 ####[facility] (DEFAULT)[address] [place] [address] CBC w/ Auto Diffon 3 Erythrocyte distribution width (RBC) [Ratio] 13.8 % Normal 11.5-15.0 [facility] Comment on above: Performed By: #### 2 609150, 0940414787, 7731105, 8877164272, 45563144, 2859739593, 3865712808 ####[facility] (DEFAULT)[address] [place] [address] Hematocrit (Bld) [Volume fraction] 40.8 % High 33.7-40.4 [facility] Comment on above: Performed By: #### 2 772021, 0693036317, 8430841, 9776959661, 65994384, 7395741034, 9994401664 ####[facility] (DEFAULT)[address] [place] [address] Hemoglobin (Bld) [Mass/Vol] 13.7 g/dL Normal 11.3-15.9 [facility] Comment on above: Performed By: #### 2 924893, 6883968610, 2931878, 7279571950, 54749201, 6487013497, 7807009117 ####[facility] (DEFAULT)[address] [place] [address] MCH (RBC) [Entitic mass] 29 pg Normal 24-34 [facility] Comment on above: Performed By: #### 2 601393, 5812480738, 4484358, 1107943941, 58741438, 7147340620, 5207178016 ####[facility] (DEFAULT)[address] [place] [address] MCHC (RBC) [Mass/Vol] 34 g/dL Normal 26-37 [facility] Comment on above: Performed By: #### 2 145616, 9157868961, 6210773, 2726080312, 18622740, 9894501653, 5051356616 ####[facility] (DEFAULT)[address] [place] [address] MCV (RBC) [Entitic vol] 87 fL Normal 81-100 [facility] Comment on above: Performed By: #### 2 991196, 1080678658, 2959065, 2343371726, 18129582, 0908616964, 0321504913 ####[facility] (DEFAULT)[address] [place] [address] Platelet 249 x10 Normal 138-427 [facility] Comment on above: Performed By: #### 2 912320, 9736925194, 6552678, 2728905635, 67251208, 8795845236, 5950649027 ####[facility] (DEFAULT)[address] [place] [address] Platelet mean volume (Bld) [Entitic vol] 7.9 fL Normal 6.3-10.2 [facility] Comment on above: Performed By: #### 2 410838, 7411990331, 7687317, 8516126461, 66968084, 7688145443, 5960038437 ####[facility] (DEFAULT)[address] [place] [address] RBC 4.68 x10 Normal 3.70-5.30 [facility] Comment on above: Performed By: #### 2 930079, 7353166340, 0329091, 7430984465, 48120282, 8602441691, 7102933622 ####[facility] (DEFAULT)[address] [place] [address] WBC 4.7 x10 Normal 3.5-10.5 [facility] Comment on above: Performed By: #### 2 666111, 1184140808, 5343517, 3466919444, 91799548, 9534135365, 3698811516 ####[facility] (DEFAULT)[address] [address]40[address] Man Diff? Auto Invalid Interpretation Code [facility] Comment on above: Performed By: #### 2 152077, 2824829262, 4754564, 0945690283, 58328717, 6290944555, 3250343118 ####[facility] (DEFAULT)[address] [place] [address] CMP Standardon 05-22-2023 eGFR Non AA 49 mL/min/1.73m2 Invalid Interpretation Code [facility] Comment on above: Performed By: #### 2 441558, 9779808947, 0616114, 9186294390, 76555472, 0323509194, 3442428179 ####[facility] (DEFAULT)[address] [place] [address] eGFR AA 60 mL/min/1.73m2 Invalid Interpretation Code [facility] Comment on above: Performed By: #### 2 346532, 9622894603, 6188072, 4974883668, 85701949, 4733994467, 3310299236 ####[facility] (DEFAULT)[address] [place] [address] 30681 Albumin/Globulin [Mass ratio] 1.2 {ratio} Low 1.4-2.6 [facility] Comment on above: Performed By: #### 2 776194, 3695386474, 1203157, 7448239495, 70888214, 9547769246, 8268753704 ####[facility] (DEFAULT)[address] [place] [address] 09047 Anion gap [Moles/Vol] 10.6 mmol/L Normal 5.0-19.0 [facility] Comment on above: Performed By: #### 2 022901, 2773587128, 5948819, 7337016100, 71942495, 0142943133, 4690905933 ####[facility] (DEFAULT)[address] [place] [address] 15243 Globulin (S) [Mass/Vol] 3.1 g/dL Normal 1.5-4.3 [facility] Comment on above: Performed By: #### 2 871541, 2029845787, 4877325, 7179029973, 45235940, 6501587813, 5666775358 ####[facility] (DEFAULT)[address] [place] [address] Osmolality 279 mOsm/L Invalid Interpretation Code [facility] Comment on above: Performed By: #### 2 869118, 5493732373, 7057929, 2927645051, 67809242, 1291648536, 3281496947 ####[facility] (DEFAULT)[address] [place] [address] Urea nitrogen/Creatinine [Mass ratio] 18.2 mg/mg High 4.6-16.2 [facility] Comment on above: Performed By: #### 2 207774, 6074948259, 7835993, 9755746839, 79953707, 2846845649, 6309130592 ####[facility] (DEFAULT)[address] [place] [address] Albumin [Mass/Vol] 3.9 g/dL Normal 3.5-5.0 [facility] Comment on above: Performed By: #### 2 105663, 1270730210, 0325870, 9139500718, 27887197, 8389527593, 5738334383 ####[facility] (DEFAULT)[address] [place] [address] 06423 Alk Phos 89 IU/L Normal 32-91 [facility] Comment on above: Performed By: #### 2 183556, 1850561717, 8020452, 2123683991, 51629029, 7051094795, 1245002872 ####[facility] (DEFAULT)[address] [place] [address] 34113 ALT [Catalytic activity/Vol] 108.0 U/L High 14.0-54.0 [facility] Comment on above: Performed By: #### 2 380696, 0192176360, 7012802, 8638473861, 54589490, 5727364169, 5793093896 ####[facility] (DEFAULT)[address] [place] [address] 99227 AST [Catalytic activity/Vol] 98 U/L High 15-41 [facility] Comment on above: Performed By: #### 2 827944, 9036214875, 7214744, 5919667585, 11403305, 8218156290, 1808700917 ####[facility] (DEFAULT)[address] [place] [address] 83021 Bili Total 0.8 mg/dL Normal 0.3-1.2 [facility] Comment on above: Performed By: #### 2 291459, 9776628421, 6511318, 6213704585, 91554791, 5412344097, 1631822492 ####[facility] (DEFAULT)[address] [place] [address] 71063 Calcium [Mass/Vol] 9.1 mg/dL Normal 8.9-10.3 [facility] Comment on above: Performed By: #### 2 813982, 3632961513, 7798212, 0944895638, 10010232, 0110814265, 0364639881 ####[facility] (DEFAULT)[address] [place] [address] 42355 Chloride [Moles/Vol] 107 mmol/L Normal 101-111 [facility] Comment on above: Performed By: #### 2 887000, 8602514898, 1990562, 2275066956, 39511767, 1454794529, 7779886475 ####[facility] (DEFAULT)[address] [place] [address] 43778 CO2 [Moles/Vol] 24 mmol/L Normal 21-32 [facility] Comment on above: Performed By: #### 2 711330, 5306724440, 5576401, 6429193580, 18621189, 9313090522, 8065900501 ####[facility] (DEFAULT)[address] [place] [address] 38302 Creatinine [Mass/Vol] 1.15 mg/dL Normal 0.60-1.30 [facility] Comment on above: Performed By: #### 2 291408, 1775587465, 0732425, 9448660300, 36405197, 8837813072, 7292964949 ####[facility] (DEFAULT)[address] [place] [address] 58265 Glucose [Mass/Vol] 99.0 mg/dL Normal 74.0-118.0 [facility] Comment on above: Performed By: #### 2 546924, 6588566737, 8436172, 3579184621, 12311524, 8541722486, 5376820704 ####[facility] (DEFAULT)[address] [place] [address] 32333 Potassium [Moles/Vol] 3.6 mmol/L Normal 3.6-5.1 [facility] Comment on above: Performed By: #### 2 636358, 1166339807, 8161932, 1599314557, 10184245, 8989997544, 9559345749 ####[facility] (DEFAULT)[address] [place] [address] 46047 Protein [Mass/Vol] 7.0 g/dL Normal 6.5-8.1 [facility] Comment on above: Performed By: #### 2 542734, 3677325671, 4060247, 3800132754, 82151651, 9043188920, 1907240219 ####[facility] (DEFAULT)[address] [place] [address] 48727 Sodium [Moles/Vol] 138.0 mmol/L Normal 136.0-144.0 [facility] Comment on above: Performed By: #### 2 021781, 7642645192, 0253266, 0858558164, 21046803, 1636069891, 3265051443 ####[facility] (DEFAULT)[address] [place] [address] 00961 Urea nitrogen [Mass/Vol] 21 mg/dL Normal 8-26 [facility] Comment on above: Performed By: #### 2 969579, 1024659439, 9567738, 4198472672, 12409009, 4286649300, 3500055670 ####[facility] (DEFAULT[address] [address] [address] Abdomen/Pelvis w/o Contra yessynoé 05-22-2023 CT Abdomen/Pelvis w/o Contrast CLINICAL HISTORY: Intermittent left upper quadrant/chest pain. COMPARISON: None available. TECHNIQUE: Spiral imaging of the abdomen and pelvis was obtained without contrast. Multiplanar reconstructions were acquired at the CT console. All CT scans at this facility use dose modulation, iterative reconstruction, and/or weight based dosing when appropriate to reduce radiation dose to as low as reasonably achievable. FINDINGS: An approximately 3 cm low density left ovarian cyst is present. There is no free fluid, inflammatory changes, abnormal bowel dilatation, lymphadenopathy, or other acute findings identified. An approximately 2-3 mm calcified gallstone is noted within the dependent aspect of otherwise unremarkable appearing gallbladder. An approximately 1.2 cm well-defined fluid density cyst is noted within the anterolateral aspect of the otherwise unremarkable?appeari ng liver. The spleen, adrenal glands, pancreas, kidneys, great vessels, bowel loops, appendix, uterus, adnexa, urinary bladder, and additional images of the pelvis are unremarkable. Mild to moderate degenerative changes of the thoracolumbar spine are present. IMPRESSION: APPROXIMATELY 3 CM LOW-DENSITY LEFT OVARIAN CYST. NO FREE FLUID OR OTHER ACUTE FINDINGS IDENTIFIED. CHOLELITHIASIS. Final Signed (Electronic Signature): Jeffry Shelley MD 05/23/23 9:52 am Technologist: ASA ZULUAGA [facility] ED Note - Physicianon 2022 ED Note - Physician Patient: PILI OREILLY Age: 52 years Sex: FEMALE : 1970 Associated Diagnoses: Intermittent upper abdominal pain Author: Arnol Bill DO Basic Information Time seen: Date & time 05/22/2023 20:12:00. History source: Patient. Arrival mode: Private vehicle, walking. History limitation: None. History of Present Illness The patient presents with This patient, who is in good health, presents to the emergency room for 3 episodes of discomfort, this being the third, over the past several months, seems to be mid upper epigastric and radiates across to the right to the left, last from 2 to 6 hours and goes away without much medication, she saw her family doctor, who recommended the next time this occurred to come to the emergency room, she has not yet been set up for any ultrasound scanning or similar. She is not a diabetic, she has had no cardiac conditions, she has no chronic lung disorders, medication taken for this discomfort which has been present for couple hours today was none. There has been some radiation to the back, some radiation to the left lower chest some radiation to the left lower abdomen. 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 The discomfort is dull and can intensifies and goes away. Not been associated with vomiting or diarrhea, On exam, she is pleasant alert, oriented, neck is supple, she has mild discomfort she is holding her mid upper epigastric area, she is tender in the area between the umbilicus and the xiphoid, bowel sounds are normal, she is minimally overweight, otherwise her HEENT exam is normal, neck is supple, there is no anterior or posterior supraclavicular nodes, her lungs are clear, she ventilates equally, she is not tachypneic, heart rate and rhythm is regular murmur, PMI left chest, she has good radial dorsalis pedis pulses, the abdomen is soft line discomfort bowel sounds are normal. She has no rebound or rigidity, extremities are nonswollen nontender skin is warm and dry. Neurologic exam is symmetric and intact. She was medicated with Zofran and ketorolac, with relief of discomfort.. Medical Decision Making Orders Launch Orders Nutrition Services: Diet Order (Order): 05/22/2023 20:31 EDT, NPO, Nursing Isolation Status: None, Constant Indicator Laboratory: Urinalysis with Culture, if indicated Standard (Order): Urine, Stat collect, 05/22/2023 20:33 EDT, Nurse collect Troponin I High Sensitivity (Order): Blood, Stat collect, 05/22/2023 20:32 EDT, Lab Collect CMP Standard (Order): Blood, Stat collect, 05/22/2023 20:32 EDT, Lab Collect CBC w/ Auto Diff (Order): Blood, Stat collect, 05/22/2023 20:32 EDT, Lab Collect Patient Care: Cardiac Monitoring (Order): 05/22/2023 20:34 EDT, Constant Order Pharmacy: ketorolac (Order): 30 mg, IV Push, Once ondansetron (Order): 4 mg, IV Push, Once Sodium Chloride 0.9% intravenous solution 1000 mL (Order): 250 mL/hr, IV Cardiovascular: EKG (Order): 05/22/2023 20:33 EDT, OTHER - See Associated Diagnosis, Launch Orders Radiology: CT Abdomen/Pelvis w/o Contrast (Order): 05/22/2023 20:40 EDT Stat, abd pain, Allow Modification Per Radiologist, Transport Mode: Wheelchair, No, Launch Orders Laboratory: Lipase Level (Order): Blood, Stat collect, 05/22/2023 22:14 EDT, Lab Collect. Results review: Interpretation Abnormal results Slight elevation in ALT AST. Radiology results: CT examination did not reveal any significant findings. SHe did have a 3 cm left ovarian cyst, which I do not think was the cause of her problem, she states that she sees Dr. Lynch and will follow-up with her regarding that problem.. Notes: EKG, 2012 hrs., 22 May, rate 76, no evidence of acute OH or ischemia, no prior EKGs this facility. No acuity to this reading. Emergency room physician reading.. Reexamination/ Reevaluation Vital signs Prior to discharge, patient states her discomfort is only totally gone, told her I will give her a pain pill for home, arrange an ultrasound for the morning, she has only been n.p.o. for about 6 hours. Her abdomen is soft, she is comfortable, I told her about the AST ALT slight elevations, that they were not too concerning at this time. I told her that her symptoms sound like gallbladder. And further evaluation will be needed by ultrasound. We can try to set her up first thing in the morning on 23 May, so that she will be informed of the results then. Impression and Plan Diagnosis Intermittent upper abdominal pain ([id number] R10.10, Discharge, Medical) Plan Condition: Improved. Disposition: Discharged: time 05/22/2023 22:24:00. Prescriptions: Launch prescriptions Pharmacy: ultrasound right upper quad (Prescribe): See Instructions, for upper abd pain, 1 EA, 0 Refill(s), Launch prescriptions Pharmacy: [facility] #1 Tab acetaminophen-oxyCOD ONE 325 mg-5 mg (Order): 1 packet(s), PO, Once. Patient was given the follow (more content not included)... Normal [facility] Extra Redon 05-22-2023 Tube Collected Yes Invalid Interpretation Code [facility] Comment on above: Performed By: #### 2 [id number] ####[facility] (DEFAULT)[address] [place] [address] TnI HSon 05-22-2023 Troponin I High Sensitivity <2.3 Normal <=15.0 [facility] Comment on above: Performed By: #### 2 [id number] ####[facility] (DEFAULT)[address] [place] [address] SCREENING MAMMOGRAM W/JUSTIN, BILATERAL*on 12-12-2022 SCREENING MAMMOGRAM W/JUSTIN, BILATERAL* CLINICAL HISTORY: Screening Mammogram COMPARISON: Priors from 2020, 2019, 2018, 2009 TECHNIQUE: 2D and 3D mammogram imaging of both breasts was performed. RESULT: DENSITY: There are scattered areas of fibroglandular density. There is no suspicious mass, asymmetry, architectural distortion, or calcification. No significant change since the prior mammograms. IMPRESSION: BIRADS 1 : NEGATIVE, NORMAL INTERVAL FOLLOW UP FOLLOW-UP: 12 months DENSITY: Scattered MAMMOGRAPHY IS VERY IMPORTANT TO YOUR HEALTH. THE CURRENT [employer] OF [employer] AND N[employer] COMPREHENSIVE CANCER NETWORK GUIDELINES RECOMMENDS ANNUAL MAMMOGRAPHY BEGINNING AT AGE 39 THIS FACILITY USES A REMINDER SYSTEM TO ENSURE ALL PATIENTS RECEIVE REMINDER NOTIFICATIONS AT THE APPROPRIATE TIME BASED ON THE RECOMMENDATIONS OF THIS EXAM. Board Certified Radiologist. Accredited by the ACR and FDA. Report reported and signed by Haile Arroyo on 12/16/2022 0953 Normal [facility] 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 Complete Blood Counton 02-01 Erythrocyte distribution width (RBC) [Ratio] 12.9 % Normal 11.0-15.0 [facility] 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 Comment on above: Performed By: #### C BC #### [facility] [address] [place], [place] [id number] Hematocrit (Bld) [Volume fraction] 42.8 % Normal 35.0-47.0 [facility] Comment on above: Performed By: #### C BC #### [facility] [address] [place], [place] [id number] Hemoglobin (Bld) [Mass/Vol] 14.1 g/dL Normal 11.6-15.5 [facility] Comment on above: Performed By: #### C BC #### [facility] [address], [place] [id number] MCH (RBC) [Entitic mass] 29.9 pg Normal 27.0-33.0 [facility] Comment on above: Performed By: #### C BC #### [facility] [address], [place] [id number] MCHC (RBC) [Mass/Vol] 32.9 g/dL Normal 32.0-36.0 [facility] Comment on above: Performed By: #### C BC #### [facility] [address], [place] [id number] MCV (RBC) [Entitic vol] 91 fL Normal 80-100 [facility] Comment on above: Performed By: #### C BC #### [facility] [address], [place] [id number] Platelet mean volume (Bld) [Entitic vol] 9.90 fL Normal 7.50-12.50 [facility] Comment on above: Performed By: #### C BC #### [facility] [address], [place] [id number] Platelets (Bld) [#/Vol] 273 10*3/uL Normal 140-400 [facility] Comment on above: Performed By: #### C BC #### [facility] [address], [place] [id number] RBC (Bld) [#/Vol] 4.72 10*6/uL Normal 3.90-5.20 [facility] Comment on above: Performed By: #### C BC #### [facility] [address], [place] [id number] RDW-SD 42.6 fL Normal 37.0-50.0 [facility] Special[facility] Comment on above: Performed By: #### C BC #### [facility] [address], [place] [id number] WBC (Bld) [#/Vol] 4.6 10*3/uL Normal 3.8-11.0 [facility] 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 Comment on above: Performed By: #### C BC #### [facility] [address], [place] [id number] Hemoglobin A1Con 02-01-2022 EAG 116.89 Normal [facility] Special[facility] Comment on above: Performed By: #### A 1C #### [facility] [address], [place] [id number] HbA1c (Bld) [Mass fraction] 5.7 % Normal 4.0-6.0 [facility] 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 Comment on above: Performed By: #### A 1C #### [facility] [address], [place] [id number] Ernesto 04-25-2021 L Specimen: [id number] Received: 04/25/21 Status: STEPHEN Dillon Num: [id number] Spec Type: Surgical Subm Dr: ANAYELI WHALEY DO Tissues: A Ovary - Cyst, Non-Neoplastic (LT OVARY) B Endometrium - Curettings (EMC) Procedures: HE Stain/3, Gross/Micro L4/2 Patient Age/Sex Location Account Attending Physician ArguetaOsmanPili Ervin 50/F [place] [id number] JOVANAANAYELI DO SPEC NUM: [id number] RECD: 04/25/21 STATUS: STEPHEN DILLON NUM: [id number] SUMAYA: 04/25/21 [facility] DR: ANAYELI WHALEY DO ENTERED: 04/25/[address] [facility] [address]: Daquan [facility] SPEC TYPE: Surgical DEPT: S ORDERED: HE Stain/3, Gross/Micro L4/2 ORDERED: HE Stain/3, Gross/Micro L4/2 Pathological Diagnosis A. Left ovarian cyst, cystectomy: - Cystoadenoma. B. Endometrium, curettings: - Minute fragments of superficial endometrium with tubal metaplasia. - Minute fragments of benign squamous epithelium. Clinical Information Excessive/frequent menses, dysmenorrhea, left ovarian cyst Gross Description A. Received in a container filled with formalin labeled with the patient's name, number and left ovarian cyst wall , specimen is a collapsed cystic wall measuring 2.5 x 1.1 x 0.5 cm. Serial sectioning through the cystic wall revealing a wall thickness of 0.05 cm with smooth internal and external surface. Entirely submitted in one cassette labeled A1. (/YJ) B. Received in a container filled with formalin labeled with the patient's name, number and endometrial curettings , are multiple fragments of pink-carranza soft tissue admixed with mucus and entirely submitted in one cassette labeled B1. (YJ) Specimen: [id number] Received: 04/25/21 Status: STEPHEN Wilma Num: [id number] Spec Type: Surgical Subm Dr: ANAYELI WHALEY DO Tissues: A Ovary - Cyst, Non-Neoplastic (LT OVARY) B Endometrium - Curettings (EMC) Procedures: HE Stain/3, Gross/Micro L4/2 Patient: Pili Nino [id number] (Continued) Specimen: [id number] Received: 04/25/21 (Continued) Signed (signature on file) Luis Zavala MD 04/26/21 1150 Specimen: [id number] Received: 04/25/21 Status: STEPHEN Dillon Num: [id number] Spec Type: Surgical Subm Dr: ANAYELI WHALEY DO Tissues: A Ovary - Cyst, Non-Neoplastic (LT OVARY) B Endometrium - Curettings (EMC) Procedures: HE Stain/3, Gross/Micro L4/2 Patient: KendallOsmanArcadioPili Andersen [id number] (Continued) Specimen: [id number] Received: 04/25/21 (Continued) Microscopic Description A. One glass slide with H E stained material has been examined. The microscopic findings support the above pathologic diagnosis. B. Two glass slides with H E stained material have been examined. The microscopic findings support the above pathologic diagnosis. CPT Codes 46877?2 Specimen: [id number] Received: 04/25/21 Status: STEPHEN Dillon Num: [id number] Spec Type: Surgical Subm Dr: ANAYELI WHALEY DO Tissues: A Ovary - Cyst, Non-Neoplastic (LT OVARY) B Endometrium - Curettings (EMC) Procedures: HE Stain/3, Gross/Micro L4/2 Patient: Pili Nino [id number] (Continued) Signed (signature on file) Luis Zavala MD 04/26/21 1150 [facility] Vital Signs Date Time Vital Sign Value Performing Clinician Faci jerryy 02-16-2025 13:53-0400 Body height 157.5 cm Shemar Nunez MD Work Phone: [facility] 02-16-2025 13:53-0400 Body mass index (BMI) [Ratio] 37.49 kg/m2 Shemar Nunez MD Work Phone: [facility] 02-16-2025 13:53-0400 Body weight 92.99 kg Shemar Nunez MD Work Phone: [facility] 02-16-2025 13:53-0400 Diastolic blood pressure 72 mm[Hg] Shemar Nunez MD Work Phone: [facility] 02-16-2025 13:53-0400 Heart rate 67 /min Shemar Nunez MD Work Phone: [facility] 02-16-2025 13:53-0400 SaO2% (BldA) [Mass fraction] 97 % Shemar Nunez MD Work Phone: [facility] 02-16-2025 13:53-0400 Systolic blood pressure 118 mm[Hg] Shemar Nunez MD Work Phone: [facility] 11-11-2024 15:36-0500 Body height 157.5 cm Shemar Nunez MD Work Phone: [facility] 11-11-2024 15:36-0500 Body mass index (BMI) [Ratio] 38.23 kg/m2 Shemar Nnuez MD Work Phone: [facility] 11-11-2024 15:36-0500 Body weight 94.8 kg Shemar Nunez MD Work Phone: [facility] 11-11-2024 15:36-0500 Diastolic blood pressure 76 mm[Hg] Shemar Nunez MD Work Phone: [facility] 11-11-2024 15:36-0500 Heart rate 86 /min Shemar Nunez MD Work Phone: [facility] 11-11-2024 15:36-0500 SaO2% (BldA) [Mass fraction] 97 % Shemar Nunez MD Work Phone: [facility] 11-11-2024 15:36-0500 Systolic blood pressure 126 mm[Hg] Shemar Nunez MD Work Phone: [facility] 09-14-2024 16:12-0400 Body mass index (BMI) [Ratio] 38.23 kg/m2 Alexey Pettit MD Work Phone: [facility] 09-14-2024 16:12-0400 Body weight 94.8 kg Alexey Pettit MD Work Phone: [facility] 09-14-2024 16:12-0400 Diastolic blood pressure 60 mm[Hg] Alexey Pettit MD Work Phone: [facility] 09-14-2024 16:12-0400 Systolic blood pressure 110 mm[Hg] Alexey Pettit MD Work Phone: [facility] 08-23-2024 15:21-0400 Diastolic blood pressure 74 mm[Hg] Shemar Nunez MD Work Phone: [facility] 08-23-2024 15:21-0400 Systolic blood pressure 122 mm[Hg] Shemar Nunez MD Work Phone: [facility] 08-18-2024 14:10-0400 Body mass index (BMI) [Ratio] 38.78 kg/m2 Alexey Pettit MD Work Phone: [facility] 08-18-2024 14:10-0400 Body weight 96.16 kg Alexey Pettit MD Work Phone: [facility] 08-18-2024 14:10-0400 Diastolic blood pressure 64 mm[Hg] Alexey Pettit MD Work Phone: [facility] 08-18-2024 14:10-0400 Systolic blood pressure 100 mm[Hg] Alexey Pettit MD Work Phone: [facility] Healthcare Encounters Encounter Date Encounter Type Care Provider Facility Start: 02-21-2025 End: 02-21-2025 ambulatory SHEMAR NUNEZ Not Available Start: 02-16-2025 End: 02-16-2025 Bamboo flowsheet Shemar Nunez MD Work Phone: [facility] Start: 02-16-2025 End: 02-16-2025 Bamboo flowsheet Shemar Nunez MD Work Phone: [facility] Start: 02-16-2025 End: 02-16-2025 Office outpatient visit 25 minutes Shemar Nunez MD Work Phone: [facility] Comment on above: Elevated LDL cholest sunday level (CMS/HCC) (Primary Dx); Primary hypertension (CMS/HCC); Hypertensive nephropathy (CMS/HCC); Stage 2 chronic kidney disease; Morbid obesity (CMS/HCC) Start: 02-16-2025 End: 02-16-2025 ambulatory SHEMAR NUNEZ Not Available Start: 02-03-2025 End: 02-03-2025 ambulatory ALEXEY PETTIT Not Available Start: 11-11-2024 End: 11-11-2024 ambulatory SHEMAR NUNEZ Not Available Start: 11-11-2024 End: 11-11-2024 Patient encounter status Shemar Nunez MD Work Phone: [facility] Work Phone: Start: 11-11-2024 End: 11-11-2024 Periodic preventive med est patient 40-64yrs Shemar Nunez MD Work Phone: [facility] Comment on above: Hot flashes due to m enopause (Primary Dx); Encounter for wellness examination in adult; Advance directive in chart; Menopausal syndrome; Screening mammogram, encounter for Start: 11-11-2024 End: 11-11-2024 Bamboo flowsheet Shemar Nunez MD Work Phone: [facility] Start: 11-11-2024 End: 11-11-2024 Bamboo flowsheet Shemar Nunez MD Work Phone: [facility] Start: 09-14-2024 End: 09-14-2024 Office outpatient visit 15 minutes Alexey Pettit MD Work Phone: [facility] Comment on above: High-tone pelvic hong or dysfunction in female (Primary Dx); Pelvic pain in female; Cyst of left ovary; UTI symptoms; Thickened endometrium Start: 09-14-2024 End: 09-14-2024 ambulatory ALEXEY PETTIT Not Available Start: 08-23-2024 End: 08-23-2024 ambulatory SHEMAR NUNEZ Not Available Start: 08-23-2024 End: 08-23-2024 Office outpatient visit 25 minutes Shemar Nunez MD Work Phone: [facility] Comment on above: Essential hypertensi on (CMS/HCC) (Primary Dx); Hypertensive nephropathy (CMS/HCC); Stage 2 chronic kidney disease; Morbid obesity (CMS/HCC); Family history of heart disease; Precordial chest pain; Primary hypertension (CMS/HCC); USP current use of antithrombotics/antiplatelets Start: 08-23-2024 End: 08-23-2024 Bamboo flowsheet Shemar Nunez MD Work Phone: [facility] Start: 08-23-2024 End: 08-23-2024 [employer] Shemar Nunez MD Work Phone: [facility] Start: 08-18-2024 End: 08-18-2024 ambulatory ALEXEY PETTIT Not Available Start: 08-18-2024 End: 08-18-2024 Patient encounter status Alexey Pettit MD Work Phone: [facility] Start: 08-18-2024 End: 08-18-2024 Periodic preventive med est patient 40-64yrs Alexey Pettit MD Work Phone: [facility] Comment on above: Screening for malign ant neoplasm of cervix (Primary Dx); History of endometrial ablation; Cyst of left ovary; Pelvic pain in female; Encounter for screening mammogram for malignant neoplasm of breast; Encounter for gynecological examination without abnormal finding; Constipation, unspecified constipation type Start: 07-28-2024 End: 07-28-2024 Telephone encounter Alexey Pettit MD Work Phone: [facility] Start: 11-25-2023 End: 11-25-2023 ambulatory SHEMAR NUNEZ Facility:[facility] Start: 05-26-2023 End: 05-27-2023 ambulatory [facility] Facility:[facility] Start: 05-22-2023 End: 05-23-2023 Emergency department patient visit [facility] Facility:[facility] Procedures Date Procedure Procedure Detail Performing Clinician Start: 02-21-2025 Mammography Shemar schwartz MD Work Phone: Start: 09-14-2024 Urnls dip stick/tabl et rgnt non-auto w/o micrscp Alexey Pettit MD Work Phone: Start: 12-12-2023 Mammography Alexey perez MD Work Phone: Start: 12-11-2020 Microscopic observat ion [Identifier] in Cervix by Cyto stain Alexey Pettit MD Work Phone: Start: 11-15-2020 Colonoscopy Alexey perez MD Work Phone: Plan of Treatment Date Care Activity Detail Author Start: 11-15-2030 Screening for malign ant neoplasm of colon [facility] Healthcare Start: 02-21-2026 Screening for malign ant neoplasm of breast Mammogram [facility] Start: 02-09-2026 End: 02-09-2026 Patient encounter procedure 02/09/2026 10:00 AM EDT Office Visit [facility] [address] [place] [address] Alexey Pettit MD [address] [place] [address] [facility] Start: 02-09-2026 End: 02-09-2026 Professional / ancillary services management 02/09/2026 9:30 AM EDT Ancillary Procedure [facility] [address] [place] [address] [facility] Start: 08-19-2025 End: 02-16-2026 Lipid 1996 panel - Serum or Plasma Lipid panel Lab Routine Elevated LDL cholesterol level (CMS/HCC) Expected: 08/19/2025 (Approximate), Expires: 02/16/2026 [facility] Work Phone: Comment on above: Expected: 08/19/2025 (Approximate), Expires: 02/16/2026 Start: 02-21-2025 End: 02-21-2025 Professional / ancillary services management 02/21/2025 6:30 PM EDT Ancillary Procedure [facility] [place] [address] [place] [address] [facility] [place] Start: 02-16-2025 End: 02-16-2025 Patient encounter procedure [facility] Comment on above: Essential hypertensi on (CMS/HCC); Hypertensive nephropathy (CMS/HCC); Stage 2 chronic kidney disease; Morbid obesity (CMS/HCC) Start: 01-17-2025 End: 01-17-2025 Patient encounter procedure 01/17/2025 3:45 PM EST Procedure Visit [facility] [address] [place] [address] Alexey Pettit MD [address] [place] [address] [facility] Start: 01-17-2025 End: 01-17-2025 Professional / ancillary services management 01/17/2025 3:00 PM EST Ancillary Procedure [facility] [address] [place] [address] [facility] Start: 12-18-2024 End: 10-18-2025 DBT Breast - bilateral screening Bilateral screening mammogram with tomosynthesis Imaging Routine Encounter for screening mammogram for malignant neoplasm of breast Expected: 12/18/2024, Expires: 10/18/2025 [facility] Work Phone: Comment on above: Expected: 12/18/2024 , Expires: 10/18/2025 Start: 12-12-2024 Screening for malign ant neoplasm of breast Mammogram [facility] Start: 11-11-2024 End: 01-12-2026 MG Breast - bilateral Screening Bilateral screening mammogram Imaging Routine Screening mammogram, encounter for Expected: 11/11/2024, Expires: 01/12/2026 [facility] Work Phone: Comment on above: Expected: 11/11/2024 , Expires: 01/12/2026 Start: 11-04-2024 End: 11-04-2024 Patient encounter procedure 11/04/2024 2:00 PM EST Office Visit [facility] [address] [place] [address] Shemar Nunez MD [address] [place] [address] [facility] Start: 09-14-2024 End: 09-14-2024 Patient encounter procedure 09/14/2024 3:45 PM EDT Office Visit [facility] [address] [place] [phone] Alexey Pettit MD [address] [place] [address] [facility] Start: 09-14-2024 End: 09-14-2024 Professional / ancillary services management 09/14/2024 3:00 PM EDT Ancillary Procedure [facility] [address] [place] [address] [facility] Start: 08-23-2024 End: 08-23-2024 Patient encounter procedure 08/23/2024 3:00 PM EDT Office Visit [facility] [address] [address] [place] [address] Shemar Nunez MD [address] [place] [address] (Fax) [facility] Start: 08-23-2024 End: 08-23-2025 Cardiac stress study Procedure STRESS TEST TREADMILL Imaging Routine Essential hypertension (CMS/HCC) Family history of heart disease Precordial chest pain Expected: 08/23/2024 (Approximate), Expires: 08/23/2025 [facility] Work Phone: Comment on above: Expected: 08/23/2024 (Approximate), Expires: 08/23/2025 Start: 08-18-2024 End: 08-18-2024 Patient encounter procedure 08/18/2024 2:00 PM EDT Office Visit [facility] [address] [place] [address] Alexey Pettit MD [address] [place] [address] [facility] Start: 07-25-2024 Influenza vaccination Influenza Vacc ine (#1) [facility] Start: 12-11-2023 Screening for malign ant neoplasm of cervix [facility] Start: 1999 Screening for malign ant neoplasm of cervix HPV/Cotest [facility] Start: 1969 Screening for malign ant neoplasm of colon [facility] SENDOUT TEST MISCELLANEOUS [facility] SENDOUT TEST MISCELLANEOUS [facility] Lab Routine Screening for malignant neoplasm of cervix Encounter for gynecological examination without abnormal finding Ordered: 08/18/2024 [facility] Comment on above: Ordered: 08/18/2024 Payers Date Payer Category Payer Private Health Insurance [employer]ÑO MATAMOROS [id number] 2023 Unknown VITA GORMAN DRISCOLL [employer] [id number] 2023-Present [phone] [address] [id number] 2023 Unknown [id number] 2023 Unknown [id number] 1969 Unknown [id number] [id number] .2.718 1969 Unknown [id number] 2.16.840.1.513142.3.579 .2.718 1969 Unknown [id number] 2.16.840.1.980667.3.579 .2.718 1969 Unknown [id number] 2.16.840.1.181756.3.579 .2.9 1969 Unknown [id number] 2.16.840.1.243170.3.579 .2.9 1969 Unknown [id number] 2.16.840.1.930091.3.579 .2.1258 1969 Unknown [id number] 2.16.840.1.303720.3.579 .2.9 1969 Unknown [id number] 2.16.840.1.346741.3.579 .2.9 1969 Unknown [id number] 2.16.840.1.608091.3.579 .2.1258 1969 Unknown [id number] 2.16.840.1.730035.3.579 .2.9 1969 Unknown [id number] 2.16.840.1.644441.3.579 .2.9 1969 Unknown [id number] 2.16.840.1.925121.3.579 .2.9 Social History Date Type Detail Facility Start: 08-25-2023 Tobacco smoking status [facility] Ex-smoke r [facility] History of tobacco use Current smoker [facility] History of tobacco use Cigarette Smoker [facility] Start: 08-25-2023 Tobacco use and exposure Smoke less tobacco non-user [facility] Start: 08-23-2024 End: 02-16-2025 Alcoholic beverage intake Current drinker of alcohol (finding) [facility] Start: 11-05-2023 End: 08-23-2024 Alcoholic beverage intake [facility] Start: 11-05-2023 End: 02-03-2025 Humiliation, Afraid, Rape, and Kick questionnaire [HARK] [facility] Within the last year , have you been afraid of your partner or ex-partner? No [facility] How often do you att end gnosticism or anglican services? Patient declined [facility] How often to you hav e a drink containing alcohol? Monthly or less [facility] How many standard dr inks containing alcohol do you have on a typical day? 1 or 2 [facility] How often do you hav e 6 or more drinks on 1 occasion? Less than monthly [facility] Start: 06-19-2023 Education 21 [facility] Start: 08-25-2023 Tobacco Comment Last smoked : 5-10 years [facility] Start: 08-25-2023 Alcohol Comment Caffeine intak e: 2-3 cups per day [facility] Start: 1970 Sex assigned at Not on file [facility] How often to you hav e a drink containing alcohol? 2-4 times a month [facility] Clinical Notes 05-23-2023 to 02-16-2025 Shemar Nunez MD - 02/16/2025 2:00 PM Anjel Nunez MD - 11/11/2024 3:30 PM Tong Pettit MD - 09/14/2024 3:45 PM Anjel Nunez MD - 08/23/2024 3:00 PM EDT Note Date & Type Note Facility 02-16-2025 History of Presen t illness Narrative Images from the original note were not included. Patient ID: Pili Ervin is a 54 y.o. female who presents for: Hypertension Patient is here for follow-up of elevated blood pressure. She is Minimally exercising and is not adherent to a low-salt diet. Blood pressure is well controlled at home. Cardiac symptoms: none. Patient denies chest pain, dyspnea, irregular heart beat, lower extremity edema, and palpitations. Cardiovascular risk factors: hypertension, obesity (BMI >= 30 kg/m2), and sedentary lifestyle. Use of agents associated with hypertension: none. History of target organ damage: none. Objective The patient is pleasant and in no acute distress. The neck is supple and trachea is midline. No masses are appreciated. The heart is regular rate and rhythm without S3, S4. No murmur. The patient has normal respiratory pattern. The breath sounds are symmetrical without evidence of rhonchi or rales. No wheezing. The skin is warm and dry. The lower extremities have trace edema. The patient has good eye contact and speech is clear. Appropriate affect. Visit Vitals BP 118/72 Pulse 67 Ht 5' 2 Wt 205 lb SpO2 97% BMI 37.49 kg/m OB Status Ablation Smoking Status Former BSA 2.02 m Allergies Allergen Reactions Pinus Strobus Unknown Current Outpatient Medications on File Prior to Visit Medication Sig Dispense Refill amLODIPine (Norvasc) 5 MG tablet Take 1 tablet (5 mg) by mouth Daily 90 tablet 1 aspirin 81 MG EC tablet Take 1 tablet (81 mg) by mouth Daily Inulin (Inulin Fiber Prebiotic) 833.25 MG capsule as directed Orally losartan (Cozaar) 100 MG tablet Take 1 tablet (100 mg) by mouth Daily 90 tablet 1 Magnesium Bisglycinate 100 MG tablet Take 100 mg by mouth See administration instructions. 2 capsules orally at bedtime. nebivolol (Bystolic) 10 MG tablet Take 1 tablet (10 mg) by mouth Daily 90 tablet 1 progesterone 200 MG capsule Take 200 mg by mouth See administration instructions 6 days a week [DISCONTINUED] Hormone Cream Base (HRT Cream Base Women) cream Use 1 mL nightly days 1 through 25 of the month Potassium Citrate granules Take by mouth at bedtime. (Patient not taking: Reported on 02/16/2025) No current facility-administered medications on file prior to visit. 1. Primary hypertension (CMS/HCC) Chronic problem, stable, to goal. In prescribing a renewal to their current medication, consideration of the following encompasses moderate decision making; the current prescriptions and supplements, the current allergies and medication intolerances, current medical conditions, and potential drug interactions. Any changes to risks, benefits, and reason for renewing their current medication due to the above were discussed. The patient was given a chance to ask questions today and all questions were answered. The patient is to contact us if any other questions arise or if any problems occur. (Utilizing the original 1994/1996 guidelines or the 2020 office/outpatient code guidelines for selecting the level of E/M service, In both sets of guidelines, prescription drug management appears in the moderate medical decision making (MDM) row. Neither the original guidelines nor the new guidelines state that a new prescription or change is needed in order to credit prescription drug management) - losartan (Cozaar) 100 MG tablet; Take 1 tablet (100 mg) by mouth Daily Dispense: 90 tablet; Refill: 1 - nebivolol (Bystolic) 10 MG tablet; Take 1 tablet (10 mg) by mouth Daily Dispense: 90 tablet; Refill: 1 - amLODIPine (Norvasc) 5 MG tablet; Take 1 tablet (5 mg) by mouth Daily Dispense: 90 tablet; Refill: 1 2. Hypertensive nephropathy (CMS/HCC) Chronic problem demonstrating end-organ damage. 3. Stage 2 chronic kidney disease Defines the hypertensive nephropathy. 4. 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 5. Elevated LDL cholesterol level (CMS/HCC) (Primary) - Lipid panel; Future - Lipid panel documented in this encounter [facility] 11-11-2024 History of Presen t illness Narrative Images from the original note were not included. Patient ID: Pili Ervin is a 54 y.o. female who presents for: Adult Wellness: See Scanned Wellness packet Advance Directive/Living Will: Yes Health Care Power of Aerodynamics Professor: Yes Review of Systems Constitutional: Negative for appetite change, chills, fever and unexpected weight change. Breasts: Negative for breast mass and breast discharge. Respiratory: Negative for cough, shortness of breath and wheezing. Cardiovascular: Positive for leg swelling. Negative for chest pain and palpitations. Gastrointestinal: Positive for constipation. Negative for abdominal pain and diarrhea. Genitourinary: Negative for frequency and urgency. Neurological: Positive for headaches. Negative for light-headedness. Psychiatric/Behavioral: Positive for sleep disturbance. Negative for behavioral problems. The patient is nervous/anxious. Objective The patient is pleasant and in no acute distress. The neck is supple and trachea is midline. No masses are appreciated. The heart is regular rate and rhythm without S3, S4. No murmur. The patient has normal respiratory pattern. The breath sounds are symmetrical without evidence of rhonchi or rales. No wheezing. The skin is warm and dry. The lower extremities have trace edema. The patient has good eye contact and speech is clear. Appropriate affect. Visit Vitals BP 126/76 Pulse 86 Ht 5' 2 Wt 209 lb SpO2 97% BMI 38.23 kg/m OB Status Ablation Smoking Status Former BSA 2.04 m Allergies Allergen Reactions Pinus Strobus Unknown Current Outpatient Medications on File Prior to Visit Medication Sig Dispense Refill amLODIPine (Norvasc) 5 MG tablet Take 1 tablet (5 mg) by mouth Daily 90 tablet 1 aspirin 81 MG EC tablet Take 1 tablet (81 mg) by mouth Daily Inulin (Inulin Fiber Prebiotic) 833.25 MG capsule as directed Orally losartan (Cozaar) 100 MG tablet Take 1 tablet (100 mg) by mouth Daily 90 tablet 1 Magnesium Bisglycinate 100 MG tablet Take 100 mg by mouth See administration instructions. 2 capsules orally at bedtime. nebivolol (Bystolic) 10 MG tablet Take 1 tablet (10 mg) by mouth Daily 90 tablet 1 Potassium Citrate granules Take by mouth at bedtime. progesterone 200 MG capsule Take 200 mg by mouth Daily miSOPROStol (Cytotec) 200 MCG tablet Take all 4 tablets at bedtime the night before procedure (Patient not taking: Reported on 11/11/2024) 4 tablet 0 No current facility-administered medications on file prior to visit. 1. Encounter for wellness examination in adult I have reviewed the patients PMShx, medications, and reconciled the problem list. Health maintenance and risk was reviewed and discussed. I also reviewed and discussed as appropriate; immunizations, colon cancer screening, breast and cervical cancer screening, recommended and any current lab evaluation. All items were brought up to date unless declined by the patient. 2. Advance directive in chart 3. Hot flashes due to menopause (Primary) Chronic problem that is improved with the HRT. She is at her six-month renewal. New prescription generated. - Hormone Cream Base (HRT Cream Base Women) cream; Use 1 mL nightly days 1 through 25 of the month 4. Menopausal syndrome - Hormone Cream Base (HRT Cream Base Women) cream; Use 1 mL nightly days 1 through 25 of the month 5. Screening mammogram, encounter for - Bilateral screening mammogram; Future documented in this encounter [facility] 09-14-2024 History of Presen t illness Narrative Images from the original note were not included. Alexey Pettit MD Obstetrics and Gynecology Patient: Pili Oreilly : 1970 (54 y.o.) Exam Date: 09/14/2024 Reason for Visit - Chief Complaint Patient presents with Follow-up Follow up after in house ultrasound for hx of ablation, pelvic pain, and LT ovarian cyst Patient was treated for uti 3 weeks ago, asked to be checked again urine dip neg. Difficulty defacation The patient reports having experienced a severe urinary tract infection (UTI) since her last visit, which she has not had in about 20 years. She mentions that some symptoms have cleared, but occasionally still experiences a sensation of vaginal dryness. The patient is currently being treated with BioT (testosterone pellets) every 3 months, with her last pellet administered at the beginning of October. She also receives a small amount of estrogen and takes 200 mg of progesterone daily. The patient has a history of fibroids and underwent an ablation 2 years ago. She had seven fibroids in the past, with the largest being a right lateral serosal. The patient also had a cystadenoma on the left ovary, which was removed in a previous surgery, leaving the ovary intact. The patient's endometrial lining was found to be thickened in a previous biopsy, but no cancerous or precancerous cells were detected. The patient has been experiencing difficulty with bowel movements and has discussed the possibility of high-tone pelvic floor dysfunction with another healthcare provider. She has tried a high-fiber supplement to improve her bowel movements, with limited success. Visit Vitals OB Status Ablation Smoking Status Former History of Present Illness, Associated Treatments and Results - OB History Para Term AB Living 1 1 1 0 0 1 SAB IAB Ectopic Multiple Live Births 0 0 0 0 1 # Outcome Date GA Lbr Gagan/2nd Weight Sex Type Anes PTL Lv 1 Term 2002 42w0d 8 lb 10 oz M CS-LTranv Spinal N REMIGIO Complications: Failure to Progress in Second Stage Name: Jem Constitutional: Negative. HENT: Negative. Eyes: Negative. Respiratory: Negative. Cardiovascular: Negative. Gastrointestinal: Negative. Endocrine: Negative. Genitourinary: Negative. Musculoskeletal: Negative. Skin: Negative. Allergic/Immunologic: Negative. Neurological: Negative. Hematological: Negative. Psychiatric/Behavioral: Negative. Allergies Allergen Reactions Pinus Strobus Unknown Current Outpatient Medications: amLODIPine (Norvasc) 5 MG tablet, Take 1 tablet (5 mg) by mouth Daily, Disp: 90 tablet, Rfl: 1 aspirin 81 MG EC tablet, Take 1 tablet (81 mg) by mouth Daily, Disp: , Rfl: Inulin (Inulin Fiber Prebiotic) 833.25 MG capsule, as directed Orally, Disp: , Rfl: losartan (Cozaar) 100 MG tablet, Take 1 tablet (100 mg) by mouth Daily, Disp: 90 tablet, Rfl: 1 Magnesium Bisglycinate 100 MG tablet, Take 100 mg by mouth See administration instructions. 2 capsules orally at bedtime., Disp: , Rfl: nebivolol (Bystolic) 10 MG tablet, Take 1 tablet (10 mg) by mouth Daily, Disp: 90 tablet, Rfl: 1 Potassium Citrate granules, Take by mouth at bedtime., Disp: , Rfl: progesterone 200 MG capsule, Take 200 mg by mouth Daily, Disp: , Rfl: Past Medical History: Diagnosis Date Arthritis Bronchitis Chicken pox Chronic pain syndrome 2017 Dr Solis Dysmenorrhea Family history of cancer Family history of heart disease Former smoker quit 10yr.'s History of colposcopy abnormal cervical cells History of colposcopy abnormal cervical cell Hydrosalpinx Hypertension (CMS/HCC) Menorrhagia with regular cycle Peroneal tendinitis of left lower extremity 06/17/2023 Plantar fasciitis 06/17/2023 Vaginal infection Past Surgical History: Procedure Laterality Date SECTION, LOW TRANSVERSE 2002 COLPOSCOPY 2018 MOUTH SURGERY Family History Problem Relation Name Age of Onset Colon cancer Mother Diabetes Mother Hypertension Mother Heart disease Mother Hypertension Father Heart disease Father No Known Problems Sister No Known Problems Brother No Known Problems Daughter No Known Problems Son Breast cancer Mother's Sister Breast cancer Father's Sister Ovarian cancer Neg Hx Social History Tobacco Use Smoking Status Former Types: Cigarettes Smokeless Tobacco Never Tobacco Comments Last smoked : 5-10 years Physical Exam - General appearance, mentation, extraocular movements, facial strength and movement, hearing, upper and lower extremity strength and tone, sensation to gross testing, coordination, and gait are normal or at baseline unless noted below. OBGyn Exam Assessment/Plan ICD-10-CM 1. Pelvic pain in female R10.2 2. Cyst of left ovary N83.202 1. Vaginal dryness and discomfort: - Plan: a) Monitor symptoms. b) Consider evaluation for atrophic vaginitis if symptoms persist or worsen. 2. History of UTI: - Plan: a) Review results of the urine sample provided today. b) Treat accordingly if any abnormalities are detected. 3. Hormone therapy (BioT pellets, estrogen, and progesterone): - Plan: a) Continue current hormone therapy regimen. b) Monitor for any side effects or changes in symptoms. 4. Thickened endometrial lining: - Plan: a) Schedule an endometrial biopsy to rule out any concerning pathology. b) Monitor results and adjust hormone therapy if necessary. 5. Uterine fibroids: - Plan: a) Schedule a follow-up ultrasound in 4 months to monitor the growth of fibroids. b) Determine if any intervention is needed. 6. Ovarian cyst: - Plan: a) Monitor the cyst with follow-up ultrasound in 4 months. b) Evaluate for any changes or need for intervention. 7. Pelvic floor dysfunction: - Plan: a) Refer the patient to a pelvic floor physical therapist (Mary Maldonado) for evaluation and treatment. 8. Follow-up: - Plan: a) Schedule a follow-up appointment after the endometrial biopsy and pelvic floor therapy evaluation. b) Discuss results and any necessary adjustments to the treatment plan. documented in this encounter [facility] 08-23-2024 History of Presen t illness Narrative Images from the original note were not included. Patient ID: Pili Ervin is a 53 y.o. female who presents for: Hypertension Patient is here for follow-up of elevated blood pressure. She is exercising and is not adherent to a low-salt diet. Blood pressure is well controlled at home. Cardiac symptoms: chest pain, chest pressure/discomfort, dyspnea, and exertional chest pressure/discomfort. Patient denies irregular heart beat, lower extremity edema, near-syncope, and orthopnea. Cardiovascular risk factors: family history of premature cardiovascular disease, hypertension, obesity (BMI >= 30 kg/m2), and sedentary lifestyle. Use of agents associated with hypertension: none. History of target organ damage: chronic kidney disease. Review of Systems Constitutional: Negative for activity change and fatigue. Respiratory: Negative for cough, shortness of breath and wheezing. Cardiovascular: Positive for chest pain (the chest pain and pressure she describes by placing a hand over her upper sternum and then showing it radiating into her neck left worse than right. This was brought about during activity and relieved with rest.). Negative for palpitations and leg swelling. Neurological: Negative for light-headedness and headaches. Objective The patient is pleasant and in no acute distress. The neck is supple and trachea is midline. No masses are appreciated. The heart is regular rate and rhythm without S3, S4. No murmur. The patient has normal respiratory pattern. The breath sounds are symmetrical without evidence of rhonchi or rales. No wheezing. The skin is warm and dry. The lower extremities have trace edema. The patient has good eye contact and speech is clear. Appropriate affect. Visit Vitals BP 122/74 OB Status Ablation Smoking Status Former Allergies Allergen Reactions Pinus Strobus Unknown Current Outpatient Medications on File Prior to Visit Medication Sig Dispense Refill Inulin (Inulin Fiber Prebiotic) 833.25 MG capsule as directed Orally Magnesium Bisglycinate 100 MG tablet Take 100 mg by mouth See administration instructions. 2 capsules orally at bedtime. Potassium Citrate granules Take by mouth at bedtime. progesterone 200 MG capsule Take 200 mg by mouth Daily [DISCONTINUED] amLODIPine (Norvasc) 10 MG tablet Take 1 tablet (10 mg) by mouth Daily 30 tablet 5 [DISCONTINUED] losartan (Cozaar) 100 MG tablet Take 1 tablet (100 mg) by mouth Daily 30 tablet 5 [DISCONTINUED] nebivolol (Bystolic) 10 MG tablet Take 1 tablet (10 mg) by mouth Daily 30 tablet 0 No current facility-administered medications on file prior to visit. 1. Essential hypertension (CMS/HCC) Chronic problem, stable, to goal. In prescribing a renewal to their current medication, consideration of the following encompasses moderate decision making; the current prescriptions and supplements, the current allergies and medication intolerances, current medical conditions, and potential drug interactions. Any changes to risks, benefits, and reason for renewing their current medication due to the above were discussed. The patient was given a chance to ask questions today and all questions were answered. The patient is to contact us if any other questions arise or if any problems occur. (Utilizing the original guidelines or the 2020 office/outpatient code guidelines for selecting the level of E/M service, In both sets of guidelines, prescription drug management appears in the moderate medical decision making (MDM) row. Neither the original guidelines nor the new guidelines state that a new prescription or change is needed in order to credit prescription drug management) - losartan (Cozaar) 100 MG tablet; Take 1 tablet (100 mg) by mouth Daily Dispense: 90 tablet; Refill: 1 - amLODIPine (Norvasc) 5 MG tablet; Take 1 tablet (5 mg) by mouth Daily Dispense: 90 tablet; Refill: 1 - STRESS TEST TREADMILL; Future - STRESS TEST TREADMILL 2. Hypertensive nephropathy (CMS/HCC) Chronic problem demonstrating end-organ damage from the hypertension. Follow longitudinally. 3. Stage 2 chronic kidney disease Chronic problem defining the hypertensive nephropathy. Monitor longitudinally. 4. Morbid obesity (CMS/HCC) Chronic problem, comorbid condition. 5. Family history of heart disease Chronic problem in both parents however her father earlier than 60 from coronary artery disease and a heart attack. - STRESS TEST TREADMILL; Future - STRESS TEST TREADMILL 6. Precordial chest pain New problem. After questioning the really isn't any active GERD component that I can figure out. There are no real pulmonary symptoms other than she felt short of breath during the event. Rest relieves the event. - STRESS TEST TREADMILL; Future - STRESS TEST TREADMILL - aspirin 81 MG EC tablet; Take 1 tablet (81 mg) by mouth Daily 7. 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 - aspirin 81 MG EC tablet; Take 1 tablet (81 mg) by mouth Daily documented in this encounter [facility] 08-18-2024 History of Presen t illness Narrative Images from the original note were not included. Alexey Pettit MD Obstetrics and Gynecology Patient: Pili Oreilly : 1970 (53 y.o.) Yearly Wellness Exam Date: 08/18/2024 Reason for Visit - Chief Complaint Patient presents with Gynecologic Exam Pelvic Pain LMP: ablation Last Mammogram: 12/12/23 Last Pap: 12/11/20- neg Colonoscopy: 11/15/2020 Complaints: Ablation completed [place] [address] Lynch, has been having pelvic pain, CT completed and showed a LT ovarian cyst. No records on [facility] or Care everywhere. Having issue with constipation The patient reports having an ovarian cyst confirmed by a CAT scan in the fall. They have not experienced any issues until the last two months, during which they have been experiencing period-like cramps and a sensation near their hip bones. The patient also reports difficulty going to the bathroom, possibly due to pressure on their colon. The patient has tried dietary changes to address their constipation, but it has not helped. They describe their stool as thinner than normal and hard to pass. The patient had a colonoscopy in the fall, which was ordered by Dr. Castaneda. The patient has not yet discussed their constipation with Dr. Martinez and plans to mention it during their blood pressure check next week. Visit Vitals BP 100/64 Wt 212 lb BMI 38.78 kg/m OB Status Ablation Smoking Status Former BSA 2.05 m History of Present Illness, Associated Treatments and Results - OB History Para Term AB Living 1 1 1 0 0 1 SAB IAB Ectopic Multiple Live Births 0 0 0 0 1 # Outcome Date GA Lbr Gagan/2nd Weight Sex Type Anes PTL Lv 1 Term 2002 42w0d 8 lb 10 oz M CS-LTranv Spinal N REMIGIO Complications: Failure to Progress in Second Stage Name: Jem Review of Systems - Constitutional: Negative. HENT: Negative. Eyes: Negative. Respiratory: Negative. Cardiovascular: Negative. Gastrointestinal: Negative. Endocrine: Negative. Genitourinary: Negative. Musculoskeletal: Negative. Skin: Negative. Allergic/Immunologic: Negative. Neurological: Negative. Hematological: Negative. Psychiatric/Behavioral: Negative. Allergies Allergen Reactions Pinus Strobus Unknown Current Outpatient Medications: amLODIPine (Norvasc) 10 MG tablet, Take 1 tablet (10 mg) by mouth Daily, Disp: 30 tablet, Rfl: 5 Inulin (Inulin Fiber Prebiotic) 833.25 MG capsule, as directed Orally, Disp: , Rfl: losartan (Cozaar) 100 MG tablet, Take 1 tablet (100 mg) by mouth Daily, Disp: 30 tablet, Rfl: 5 Magnesium Bisglycinate 100 MG tablet, Take 100 mg by mouth See administration instructions. 2 capsules orally at bedtime., Disp: , Rfl: nebivolol (Bystolic) 10 MG tablet, Take 1 tablet (10 mg) by mouth Daily, Disp: 30 tablet, Rfl: 0 Potassium Citrate granules, Take by mouth at bedtime., Disp: , Rfl: progesterone 200 MG capsule, Take 200 mg by mouth Daily, Disp: , Rfl: Past Medical History: Diagnosis Date Arthritis Bronchitis Chicken pox Chronic pain syndrome 2017 Dr Solis Dysmenorrhea Family history of cancer Family history of heart disease Former smoker quit 10yr.'s History of colposcopy abnormal cervical cells History of colposcopy abnormal cervical cell Hydrosalpinx Hypertension (CMS/HCC) Menorrhagia with regular cycle Peroneal tendinitis of left lower extremity 06/17/2023 Plantar fasciitis 06/17/2023 Vaginal infection Past Surgical History: Procedure Laterality Date SECTION, LOW TRANSVERSE 2002 COLPOSCOPY 2018 MOUTH SURGERY Family History Problem Relation Name Age of Onset Colon cancer Mother Diabetes Mother Hypertension Mother Heart disease Mother Hypertension Father Heart disease Father No Known Problems Sister No Known Problems Brother No Known Problems Daughter No Known Problems Son Breast cancer Mother's Sister Breast cancer Father's Sister Ovarian cancer Neg Hx Social History Tobacco Use Smoking Status Former Types: Cigarettes Smokeless Tobacco Never Tobacco Comments Last smoked : 5-10 years Physical Exam - General appearance, mentation, extraocular movements, facial strength and movement, hearing, upper and lower extremity strength and tone, sensation to gross testing, coordination, and gait are normal or at baseline unless noted below. Physical Exam Constitutional: Appearance: Normal appearance. Genitourinary: Right Labia: No rash or lesions. Left Labia: No lesions or rash. No vaginal discharge or erythema. No vaginal prolapse present. No vaginal atrophy present. Right Adnexa: not tender and no mass present. Left Adnexa: not tender and no mass present. No cervical lesion. Uterus is not tender. Uterus is anteverted. Breasts: Right: Normal. No mass or nipple discharge. Left: Normal. No mass or nipple discharge. HENT: Head: Normocephalic and atraumatic. Cardiovascular: Rate and Rhythm: Normal rate and regular rhythm. Pulmonary: Breath sounds: Normal breath sounds. Abdominal: General: There is no distension. Palpations: Abdomen is soft. There is no mass. Tenderness: There is no abdominal tenderness. Musculoskeletal: General: Normal range of motion. Cervical back: Neck supple. Lymphadenopathy: Cervical: No cervical adenopathy. Neurological: Mental Status: She is alert and oriented to person, place, and time. Skin: General: Skin is warm and dry. Psychiatric: Mood and Affect: Mood normal. FCBD Assessment/Plan ICD-10-CM 1. Screening for malignant neoplasm of cervix Z12.4 SENDOUT TEST MISCELLANEOUS [facility] 2. History of endometrial ablation Z98.890 3. Cyst of left ovary N83.202 4. Pelvic pain in female R10.2 5. Encounter for screening mammogram for malignant neoplasm of breast Z12.31 Bilateral screening mammogram with tomosynthesis 6. Encounter for gynecological examination without abnormal finding Z01.419 SENDOUT TEST MISCELLANEOUS [facility] 7. Constipation, unspecified constipation type K59.00 Pili was seen today for gynecologic exam and pelvic pain. Diagnoses and all orders for this visit: Screening for malignant neoplasm of cervix (Primary) - SENDOUT TEST MISCELLANEOUS [facility] History of endometrial ablation Cyst of left ovary Pelvic pain in female Encounter for screening mammogram for malignant neoplasm of breast - Bilateral screening mammogram with tomosynthesis; Future Encounter for gynecological examination without abnormal finding - SENDOUT TEST MISCELLANEOUS [facility] Constipation, unspecified constipation type Pap and exam performed. Mammogram ordered Results can be found in MyChart in 7 days 1. Ovarian cyst: - Plan: Schedule an in-house ultrasound to further evaluate the ovarian cyst identified on the previous CAT scan. Monitor for any changes in symptoms or worsening pain. Schedule IHUS to assessOVC 2. Abdominal pain and constipation: - Plan: Assess for constipation on the upcoming ultrasound. Encourage the patient to continue with dietary modifications to alleviate constipation. If ultrasound does not reveal any significant findings, consider referral for a pelvic floor evaluation with a physical therapist. 3. Pelvic floor dysfunction (suspected): - Plan: If ultrasound does not show any significant findings, refer the patient for a pelvic floor evaluation with a physical therapist to assess for possible pelvic floor dysfunction contributing to the patient's symptoms. 4. Communication with Dr. Lima to discuss their constipation concerns with Dr. Castaneda during their upcoming blood pressure check appointment. Coordinate care with Dr. Castaneda as needed based on ultrasound results and further evaluation. 5. Blood pressure check: - Plan: Patient has a scheduled blood pressure check appointment with Dr. Campos next week. Ensure the patient attends the appointment and discusses their constipation concerns during the visit.Return 1 year documented in this encounter [facility] 07-28-2024 Telephone encount er Note Patient had an abrasion in 2020 with . She had a CT scan last summer or fall for her gallbladder and thought they had seen a cyst on left ovary which she said she has pain. She is okay waiting for her yearly but wanted to inform . [facility] 07-28-2024 Miscellaneous Notes Formattin g of this note might be different from the original. Patient had an abrasion in 2020 with . She had a CT scan last summer or fall for her gallbladder and thought they had seen a cyst on left ovary which she said she has pain. She is okay waiting for her yearly but wanted to inform . documented in this encounter [facility] 05-23-2023 Note Education Materials Gastroenterology Abdominal Pain, Adult Pain in the abdomen (abdominal pain) can be caused by many things. Often, abdominal pain is not serious and it gets better with no treatment or by being treated at home. However, sometimes abdominal pain is serious. Your health care provider will ask questions about your medical history and do a physical exam to try to determine the cause of your abdominal pain. Follow these instructions at home: Medicines ? Take gdab-nep-xusntro and prescription medicines only as told by your health care provider. ? Do not take a laxative unless told by your health care provider. General instructions ? Watch your condition for any changes. ? Drink enough fluid to keep your urine pale yellow. ? Keep all follow-up visits as told by your health care provider. This is important. Contact a health care provider if: ? Your abdominal pain changes or gets worse. ? You are not hungry or you lose weight without trying. ? You are constipated or have diarrhea for more than 2?3 days. ? You have pain when you urinate or have a bowel movement. ? Your abdominal pain wakes you up at night. ? Your pain gets worse with meals, after eating, or with certain foods. ? You are vomiting and cannot keep anything down. ? You have a fever. ? You have blood in your urine. Get help right away if: ? Your pain does not go away as soon as your health care provider told you to expect. ? You cannot stop vomiting. ? Your pain is only in areas of the abdomen, such as the right side or the left lower portion of the abdomen. Pain on the right side could be caused by appendicitis. ? You have bloody or black stools, or stools that look like tar. ? You have severe pain, cramping, or bloating in your abdomen. ? You have signs of dehydration, such as: ? Dark urine, very little urine, or no urine. ? Cracked lips. ? Dry mouth. ? Sunken eyes. ? Sleepiness. ? Weakness. ? You have trouble breathing or chest pain. Summary ? Often, abdominal pain is not serious and it gets better with no treatment or by being treated at home. However, sometimes abdominal pain is serious. ? Watch your condition for any changes. ? Take ezll-rjy-nkxspsl and prescription medicines only as told by your health care provider. ? Contact a health care provider if your abdominal pain changes or gets worse. ? Get help right away if you have severe pain, cramping, or bloating in your abdomen. This information is not intended to replace advice given to you by your health care provider. Make sure you discuss any questions you have with your health care provider. Document Revised: 12/29/2020 Document Reviewed: 03/20/2020 Flypaper Patient Education ? 2022 [employer] 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 of antithrombotics/antiplatelets [facility] Diagnosis High-tone pelvic floor dysfunction in female- Primary Pelvic pain in female Unspecified symptom associated with female genital organs Cyst of left ovary Other and unspecified ovarian cyst UTI symptoms Thickened endometrium Nonspecific (abnormal) findings on radiological and other examination of genitourinary organs [facility] Diagnosis Screening for malignant neoplasm of cervix- Primary Screening for malignant neoplasm of the cervix History of endometrial ablation Cyst of left ovary Other and unspecified ovarian cyst Pelvic pain in female Unspecified symptom associated with female genital organs Encounter for screening mammogram for malignant neoplasm of breast Encounter for gynecological examination without abnormal finding Constipation, unspecified constipation type Essential hypertension (CMS/HCC) Unspecified essential hypertension Hypertensive nephropathy (CMS/HCC) Unspecified hypertensive kidney disease with chronic kidney disease stage I through stage IV, or unspecified Stage 2 chronic kidney disease Morbid obesity (CMS/HCC) Morbid obesity [facility] Diagnosis Hot flashes due to menopause- Primary Encounter for wellness examination in adult Advance directive in chart Menopausal syndrome Symptomatic menopausal or female climacteric states Screening mammogram, encounter for [facility] Diagnosis Elevated LDL cholesterol level (CMS/HCC)- Primary Primary hypertension (CMS/HCC) Unspecified essential hypertension Hypertensive nephropathy (CMS/HCC) Unspecified hypertensive kidney disease with chronic kidney disease stage I through stage IV, or unspecified Stage 2 chronic kidney disease Morbid obesity (CMS/HCC) Morbid obesity documented in this encounter [facility] Healthcare Summary Purpose Family History No Family History Records FoundNo Family History Records FoundNo Family History Records FoundNo Family History Records Found Advance Directives Documents on File Type Date Recorded 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 Advance Directives and Living Will 10/25/2020 2020-01-19 Advance Directives Documents on File Type Date Recorded 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 Advance Directives and Living Will 10/25/2020 2020-01-19 Advance Directives Reason for Referral Specialty Diagnoses / Procedures Referred By Contac t Referred To Contact Radiology Diagnoses Essential hypertension (CMS/HCC) Family history of heart disease Precordial chest pain Procedures STRESS TEST TREADMILL Shemar Nunez MD [address] [place] [address] Referral ID Status Reason Start Date Expiration Date V isits Requested Visits Authorized [id number] Authorized 08/23/2024 02/19/2025 1 1 Additional Source Comments INFORMATION SOURCE (unrecogn ized section and content) DATE CREATED AUTHOR 05/03/2021 [facility] DATE CREATED AUTHOR AUTHOR'S ORGANIZ ATION 12/18/2022 [facility] dical Specialist DATE CREATED AUTHOR AUTHOR'S ORGANIZ ATION 01/25/2024 [facility] DATE CREATED AUTHOR AUTHOR'S ORGANIZ ATION 02/26/2025 [facility] dical Specialists EPIC Care Teams (unrecognized sec tion and content) Gas Station Service Attendant Relationship Specialty Start Date End Date Shemar Nunez MD [address] [place] [phone] PCP - General Family Medicine 06/11/23 Gas Station Service Attendant Relationship Specialty Start Date End Date Shemar Nunez MD [address] [place] [phone] PCP - General Family Medicine 06/11/23 Gas Station Service Attendant Relationship Specialty Start Date End Date Shemar Nunez MD [address] [place] [phone] PCP - General Family Medicine 06/11/23 Gas Station Service Attendant Relationship Specialty Start Date End Date Shemar Nunez MD [address] [place] [phone] PCP - General Family Medicine 06/11/23 Gas Station Service Attendant Relationship Specialty Start Date End Date Shemar Nunez MD [address] [place] [phone] PCP - General Family Medicine 06/11/23 Gas Station Service Attendant Relationship Specialty Start Date End Date Shemar Nunez MD (Fax) PCP - General Family Medicine 06/11/23 Gas Station Service Attendant Relationship Specialty Start Date End Date Shemar Nunez MD PCP - General Family Medicine 06/11/23 Gas Station Service Attendant Relationship Specialty Start Date End Date Shemar Nunez MD [address] [facility] [address] [place] [address] PCP - General Family Medicine 02/03/25 Gas Station Service Attendant Relationship Specialty Start Date End Date Shemar Nunez MD [address] [facility] [address] [place] [address] PCP - General Family Medicine 02/03/25 Reason for Visit (unrecogniz ed section and content) Reason Comments Follow-up Reason Comments Gynecologic Exam Pelvic Pain Reason Comments Annual Exam Reason Comments Hypertension FOR RECORDS PERTAINING TO PATIENTS WHO ARE OR HAVE BEEN ENROLLED IN A CHEMICAL DEPENDENCY/SUBSTANCEABUSE PROGRAM, SOME INFORMATION MAY BE OMITTED. This clinical summary was aggregated from multiple sources. Caution should be exercised in using it in the provision of clinical care. This summary normalizes information from multiple sources, and as a consequence, information in this document may materially change the coding, format and clinical context of patient data. In addition, data may be omitted in some cases. CLINICAL DECISIONS SHOULD BE BASED ON THE PRIMARY CLINICAL RECORDS. [employer] [facility]. provides no warranty or guarantee of the accuracy or completeness of information in this document.
--- NOTE | 2025-04-07 07:45 | NM_ITS ---
Patient Name: PILI STEPHENS MR#: [id number] : 1970 Exam Date: 04/07/2025 Ordering Doctor: DR SHAYLEE NUNEZ . RADIOLOGY REPORT PROCEDURE: NM SHANNON PERF SPECT REST STR COMPARISON: None. INDICATIONS: CHEST PAIN, DYSPNEA ON EXERTION, JAW PAIN, HYPERTENSION TECHNIQUE: Exam Description: Rest/Stress two day protocol gated SPECT Rest Imagin.0 mCi Tc-99m Cardiolite IV on 04/07/2025 Stress Imaging 25.4 mCi Tc-99m Cardiolite IV on 04/13/2025 Exercise Protocol: 0.4 mg Lexiscan given IV Heart Rate (bpm): Rest: 65 Max: 85 PMHR: 51 Blood Pressure: Rest: 130/78 Max: 138/64 Symptoms: Rest and peak stress ECG findings were pending, and the exercise portion of the study was pending per attending physician [facility]. For more details, please see separate cardiac stress test report. FINDINGS: QUALITY OF STUDY: Good PERFUSION DEFECT: LOCATION: N/A SIZE: N/A SEVERITY: N/A TYPE: N/A WALL MOTION: Normal wall motion LV SIZE: 69 mL. TID / TCD: 0.7 LVEF: Calculated EF 73%. SUMMARY: Myocardial perfusion imaging study is normal CONCLUSION: 1. Myocardial perfusion is normal with soft tissue attenuation 2. Global left ventricular systolic function is hyperdynamic; ejection fraction is 73% 3. No evidence of transient ischemic dilatation Dictated by: Shahida Hamlin M.D. on 04/13/2025 at 16:16 Approved by: Shahida Hamlin M.D. on 04/13/2025 at 16:20
[2025-04-07] MEDS: REGADENOSON 0.4 MG/5 ML SYRINGE IV (10:56)
--- NOTE | 2025-04-07 11:22 | PC.NURSE ---
Nursing Note Cardiac Stress Test Reviewed: Medication, allergies and patient history reviewed. Stress Test: [ x] Patient tolerated stress test well. [ ] Patient unable to tolerate walking on treadmill. Switched to Lexiscan stress test. [ ] No chest pain noted per patient [x ] Chest pain that resolved prior to leaving stress lab. [x ] No dyspnea noted. [ ] Dyspnea that resolved prior to leaving stress lab. [x ] Patient left stress lab asymptomatic and hemodynamically stable. [ ] Patient taken to the Emergency Room due to non-resolving symptoms following stress test. [ ] Patient achieved target heart rate. [ ] Patient unable to achieve target heart rate. [ ] Aminophylline administered as reversal agent to Lexiscan (Regadenoson). [ ] Nitro administered. Nursing Comments:Pt had Lexiscan test done. Pt had some what she stated was generalized heaviness over whole body and some in chest that she thought was just the heaviness. Pt had no sharp chest pain and no SOB. Symptoms resolved within 3-4 minutes after the Lexiscan was given and pt felt back to normal prior to leaving stress lab. Pt ambulated to cafeteria for breakfast prior to second set of images.
--- NOTE | 2025-04-08 12:20 | PM.STRESS ---
Stress Test Stress Test Requesting physician: SHAYLEE NUNEZ Procedure: Lexiscan nuclear stress test General Information: Reason for Stress Test: [Chest pain and shortness of breath] Cardiac History and Risk Factors: [Hypertension, age, status post menopause] Resting 12 - Lead Electrocardiogram: Resting twelve-lead EKG showed sinus bradycardia, heart rate 53 bpm, otherwise normal EKG, resting blood pressure 136/78 mmHg Lexiscan 0.4 mg IV was injected and the patient was monitored for 8 minutes. Peak heart rate 89 bpm which represents 53% of age-predicted maximum heart rate and peak blood pressure 136/78 Patient felt generalized heaviness with Lexiscan injection which resolved within 3 minutes, also reported possibly mild chest discomfort at 3 out of 10 also resolved within couple minutes EKGs throughout the test did not show any significant T or ST changes or any arrhythmias Stress Test: Protocol: [Lexiscan] Exercise Capacity: [Not applicable] Blood Pressure Response: [Normal response] Rhythm: [No arrhythmia] ST - Response: [No ST changes] Patient Response: [Generalized heaviness and mild chest Heart:] Interpretation: Negative Lexiscan EKG stress test for ischemia The nuclear myocardial perfusion images result will be reported separately Susan Nelson MD, FACC
== END 2025-04-07 07:31 | disposition home or self-care (01) ==
LOC: NM 07:32
PROVIDERS: PCP Family Medicine; Visit Provider Family Medicine
DX: R94.39 Abnormal result of other cardiovascular function study (principal); R07.2 Precordial pain; Z82.49 Family history of ischemic heart disease and other diseases of the circulatory system; I10 Essential (primary) hypertension; E66.01 Morbid (severe) obesity due to excess calories
CPT/HCPCS: 78452; 93017; A9500; J2785

== ENCOUNTER 2025-04-13 12:56 | Outpatient (OUT) | payer OTHER, SELFPAY ==
--- OUTSIDE RECORDS SUMMARY | 2025-04-13 12:57 | XMS_ITS | Encounter Summary ---
Author Organization [facility] Address [address] [place] [address] Care Team Providers Care Dice Table Person Name Role Phone Shemar Rocha MD Unavailable [phone] Shemar Rocha MD Primary Care Provider [phone] Shemar Rocha MD Primary Care Provider [phone] Encounter Details Date Type Department Care Team (Late st Contact Info) Description 06/23/2023 Orders Only [facility] [address] [place] [phone] Shemar Rocha MD [address] [address] (Fax) Social History Tobacco Use Types Packs/Day Years Used Date Smoking Tobacco: Former Cigarettes Smokeless Tobacco: Never Alcohol Use Standard Drinks/Week Comments Not Currently 2 (1 standard drink = 0.6 oz pure alcohol) Caffeine intake: 1-2 cups per day Education Answer Date Recorded What is the highest level of school you have completed or the highest degree you have received? 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 No / Unsure 06/19/2023 2:45 PM EDT documented as of this encounter Plan of Treatment Upcoming Encounters Date Type Department Care Team (Late st Contact Info) Description 02/09/2026 9:30 AM EDT Ancillary Procedure [facility] [address] [place] [phone] 02/09/2026 10:00 AM EDT Office Visit [facility] [address] [place] [phone] Beena Dubose MD [address] [place] [address] documented as of this encounter Procedures Procedure Name Priority Date/Time Associated Diagnosis Comments COMPREHENSIVE METABOLIC PANEL (REFL) Routine 05/22/2023 5:11 PM EDT CBC Routine 05/22/2023 5:[address] ABDOMEN PELVIS WO IV CONTRAST Routine 05/22/2023 5:09 PM EDT documented in this encounter Results * CBC (05/22/2023 5:11 PM EDT) Blood Venous blood specimen / Unknown Shemar Rocha MD LAB BLOOD ORDERABLES Final R esult * COMPREHENSIVE METABOLIC PANEL (REFL) (05/22/2023 5:11 PM EDT) Shemar Rocha MD LAB BLOOD ORDERABLES Final R esult * CT abdomen pelvis wo IV contrast (05/22/2023 5:09 PM EDT) Anatomical Region Laterality Modality Body, Pelvis, Abdomen Computed T omography us Shemar Rocha MD IMG CT PROCEDURES Final Resu lt documented in this encounter Visit Diagnoses Not on filedocumented in this encounter Care Teams Dice Table Person Relationship Specialty Start Date End Date Shemar Rocha MD [address] [place] [address] PCP - [employer] 02/22/2211/23 Shemar Rocha MD 112 [facility] [address] [place] [address] PCP - General Family Medicine 06/11/23 02/02/25 Shemar Rocha MD [address] [facility] [address] [place] [address] PCP - General Family Medicine 02/03/25 documented as of this encounter
--- OUTSIDE RECORDS SUMMARY | 2025-04-13 12:58 | XMS_ITS | Clinical Summary ---
Author Organization [facility] tem Address [id number] [address] 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 03/17 Family History Medical History Relation Name Comments Heart disease Father [place] Hypertension Father Breast cancer Maternal Aunt 1 Breast cancer Maternal Aunt 2 COPD Mother Diabetes Mother Heart failure Mother Hypertension Mother Relation Name Status Comments Father Maternal Aunt 1 Maternal Aunt 2 Maternal Grandfather Maternal Grandmother Mother Alive Paternal Grandfather Paternal Grandmother Social History Tobacco Use Types Packs/Day Years Used Date Smoking Tobacco: Former Smokeless Tobacco: Never Comments:Quit 15 years ago Alcohol Use Standard Drinks/Week Comments Yes 0 (1 standard drink = 0.6 oz pur e alcohol) Childcare Answer Date Recorded Childcare Unknown 05/04/2019 Employment Answer Date Recorded Employment Unknown 05/04/2019 Purpose - Life Answer Date Recorded Purpose and direction in life Unknown Comments No Sex and Gender Information Value Date Recorded Sex Assigned at Not on file Legal Sex Female 8:48 PM EDT Gender Identity Not on file Sexual Orientation Not on file Last Filed Vital Signs Vital Sign Reading Time Taken Comments Blood Pressure 122/72 09/08/2017 8:30 AM EDT Pulse - - Temperature - - Respiratory Rate - - Oxygen Saturation - - Inhaled Oxygen Concentration - - Weight 96.6 kg (213 lb) 09/08/2017 8:30 AM EDT Height 160 cm (5' 3 ) 02/17/2017 11:23 AM EDT Body Mass Index 37.73 02/17/2017 11:23 AM EDT Plan of Treatment Health Maintenance Due Date Last Done Comments Depression Screening 1981 Tobacco Screening 1981 Adult BMI Screening 1987 DTaP,Tdap and Td Vaccines (1 - Tdap) 1988 Zoster (Shingles) Vaccine (1 of 2) 2019 Pap Smear 09/08/2020 09/08/2017, 09/08/2017 Influenza Vaccine 07/25/2025 Medical Devices Not on file Procedures Procedure Name Priority Date/Time Associated Diagnosis Comments PAP SMEAR Routine 09/08/2017 1:23 PM EDT from Last 3 Months or Most Recently Relevant to Health Maintenance Results * Pap Smear (09/08/2017 1:23 PM EDT) Cervical TP 09/08/2017 1:23 PM EDT 09/09/2017 1:23 PM EDT Narrative COPATH - 09/11/2017 12:17 PM EDT [facility] [address] [place] [address] Gynecologic Cytology Consultation Patient Name: PILI LEONARDO : 1970 (Age: 47) Gender: F Taken: 09/08/2017 Reported: 09/11/2017 Physician(s): Rehana Quinn CNM [phone]) Copy To: [facility]. Rec. #: [id number] Acct: # [id number] Final Cytologic Interpretation Cervical (with or without endocervical) ThinPrep: Satisfactory for evaluation. A transformation zone component is present. NEGATIVE FOR INTRAEPITHELIAL LESION OR MALIGNANCY. Shift in ky suggestive of bacterial vaginosis. Comment: This specimen has been sent for HPV testing. The results are in a separate report. lvt/09/11/2017 Electronically Signed Out By BRUCE Landa(ASCP) Date of Last Menstrual Period: 08-21-17 Other Clinical Conditions: Diagnostic Pap R87.612 LGSIL cervix: Previous cytology: LSIL Previous abnormal pap: previous treatment-colpo 02/2017 Source of Specimen Cervical (with or without endocervical) ThinPrep Thin Prep Pap (HAND BULLDOZER) Fee Code(s): 78437 The Pap test is a screening test with an inherent, but low, probability of error. The Pap test is primarily effective for the diagnosis and prevention of squamous cell carcinoma. Regular screening is critical for prevention. ThinPrep liquid-based slides, which meet the Profiler Hand criteria for automated screening, have been screened by the [employer] (as of 08/10/07) along with an additional manual rescreening by a job lithographer and, if indicated, by a pathologist.Rehana Quinn CNM 09/09/2017 Rehana Quinn POSTAGE MACHINE OPERATOR-[facility] PATHOLOGY/CYTOLOGY ORDER [place] Final Result COPATH from Last 3 Months or Most Recently Relevant to Health Maintenance Insurance [facility]
--- OUTSIDE RECORDS SUMMARY | 2025-04-13 12:58 | XMS_ITS | Clinical Summary ---
Author Organization [facility] Address [address] [place] [address] Care Team Providers Care Assistant Passenger Locomotive Engineer Name Role Phone Shemar Rocha MD Primary Care Provider [phone] Allergies Active Allergy Reactions Criticality Noted Date Comments Pinus Strobus Unknown 06/17/2023 Medications Inulin (Inulin Fiber Prebiotic) 833.25 MG capsule as directed Orally A ctive Magnesium Bisglycinate 100 MG tablet Take 100 mg by mouth See administration instructions. 2 capsules orally at bedtime. Active Potassium Citrate granules Take by mouth at bedtime. Active progesterone 200 MG capsule Take 200 mg by mouth See administration instructions 6 days a week 01/09/20 24 Active aspirin 81 MG EC tabletIndication s:Precordial chest pain,care home current use of antithrombotics/ antiplatelets Take 1 tablet (81 mg) by mouth Daily 08/24/20 24 025 Active losartan (Cozaar) 100 MG tabletIndication s:Primary hypertension (CMS/HCC) Take 1 tablet (100 mg) by mouth Daily 90 tablet 1 02/17/20 25 025 Active nebivolol (Bystolic) 10 MG tabletIndication s:Primary hypertension (CMS/HCC) Take 1 tablet (10 mg) by mouth Daily 90 tablet 1 02/17/20 25 025 Active amLODIPine (Norvasc) 5 MG tabletIndication s:Primary hypertension (CMS/HCC) Take 1 tablet (5 mg) by mouth Daily 90 tablet 1 02/17/20 25 025 Active Active Problems Problem Noted Date Diagnosed Date Calculus of gallbladder with out cholecystitis without obstruction 08/26/2023 Allergic rhinitis 06/17/2023 Primary hypertension 06/17/2023 Female climacteric state 06/17/2023 Hot flashes due to menopause 06/17/2023 Hypertensive nephropathy 06/17/2023 Irritable bowel syndrome with diarrhea Morbid obesity 06/17/2023 Sleep arousal disorder 06/17/2023 Stage 2 chronic kidney disease 06/17/2023 Stress incontinence of urine 06/17/2023 Vitamin D deficiency 06/17/2023 Chemical sensitivity 10/18/2019 Allergy to food 08/25/2019 Chronic fatigue syndrome 06/13/2019 Resolved Problems Problem Noted Date Diagnosed Date Resolved Date Peroneal tendinitis of left lower extremity 06/17/2023 10/30/2023 Plantar fasciitis 06/17/2023 10/30/2023 Encounters Date Type Department Care Team Description 02/21/2025 6:30 PM EDT Ancillary Procedure [facility] [address] [place] [id number] Screening mammogram, encounter for 02/21/2025 Travel 02/16/2025 2:00 PM EDT Office Visit [facility] [address] [place] [address] Shemar Rocha MD Elevated LDL cholesterol level (CMS/HCC) (Primary Dx); Primary hypertension (CMS/HCC); Hypertensive nephropathy (CMS/HCC); Stage 2 chronic kidney disease; Morbid obesity (CMS/HCC) 02/16/2025 Bamboo flowsheet [facility] [address] [place] [address] Shemar Rocha MD 02/16/2025 Travel 02/11/2025 Patient Self-Triage [facility] [address] [facility] [place] [address] Ronnie Stallworth, Physician, 02/03/2025 2:15 PM EDT Procedure Visit [facility] [address] [place] [id number] Beena Dubose MD History of endometrial ablation; Pelvic pain in female; High-tone pelvic floor dysfunction in female; Thickened endometrium 02/03/2025 Travel from Last 3 Months Family History Medical History Relation Name Comments No Known Problems Brother No Known Problems Daughter Heart disease Father Hypertension Father Breast cancer Father's Sister Colon cancer Mother Diabetes Mother Heart disease Mother Hypertension Mother Breast cancer Mother's Sister No Known Problems Sister No Known Problems Son Ovarian cancer Neg Hx Relation Name Status Comments Brother 1 brother Daughter Father Father's Sister Mother Mother's Sister x2 Sibling Alive Sister 1 sister Son Alive 1 son Social History Tobacco Use Types Packs/Day Years Used Date Smoking Tobacco: Former Cigarettes Smokeless Tobacco: Never Tobacco Cessation:Counseling Given: Yes Comments:Last smoked : 5-10 years Alcohol Use Standard Drinks/Week Comments Yes 2 (1 standard drink = 0.6 oz pure alcohol) Caffeine intake: 2-3 cups per day Humiliation, Afraid, Rape, and Kick questionnair e Answer Date Recorded Within the last year, have y ou been afraid of your partner or ex-partner? No 11/05/2023 Within the last year, have y ou been humiliated or emotionally abused in other ways by your partner or ex-partner? No Within the last year, have y ou been kicked, hit, slapped, or otherwise physically hurt by your partner or ex-partner? No 11/05/2023 Within the last year, have y ou been raped or forced to have any kind of sexual activity by your partner or ex-partner? No 11/05/2023 Social Connection and Isolation Panel [NHANES] A nswer Date Recorded In a typical week, how many times do you talk on the phone with family, friends, or neighbors? Twice a week 11/05/2023 How often do you get togethe r with friends or relatives? Once a week 11/05/2023 How often do you attend jain or faith serv ices? Patient declined 11/05/2023 Do you belong to any clubs o r organizations such as jain groups, unions, fraternal or athletic groups, or school groups? No 11/05/2023 How often do you attend meet ings of the clubs or organizations you belong to? Patient declined 11/05/2023 Are you , , di vorced, , never , or living with a partner? Patient declined 11/05/2023 AUDIT-C Answer Date Recorded Q1: How often do you have a drink containing alc ohol? Monthly or less 08/18/2024 Q2: How many drinks containi ng alcohol do you have on a typical day when you are drinking? 1 or 2 08/18/2024 Q3: How often do you have si x or more drinks on one occasion? Less than monthly 08/18/2024 Overall Financial Resource Strain (CARDIA) Answe r Date Recorded How hard is it for you to pa y for the very basics like food, housing, medical care, and heating? Patient declined 11/05/2023 PHQ-2 Answer Date Recorded Patient Health Questionnaire-2 Score 0 02/03/2025 Hunger Vital Sign Answer Date Recorded Worried About Running Out of Food in the Last Ye ar Not on file 11/05/2023 Within the past 12 months, t he food you bought just didn't last and you didn't have money to get more. Patient declined PRAPARE - Transportation Answer Date Re corded In the past 12 months, has l ack of transportation kept you from medical appointments or from getting medications? Patient declined 11/05/2023 In the past 12 months, has l ack of transportation kept you from meetings, work, or from getting things needed for daily living? Patient declined 11/05/2023 Housing Stability Vital Sign Answer Sudhakar e Recorded In the last 12 months, was t here a time when you were not able to pay the mortgage or rent on time? Patient refused 11/05/20 23 Number of Places Lived in the Last Year Not on f ile 11/05/2023 In the last 12 months, was t here a time when you did not have a steady place to sleep or slept in a fdc (including now)? 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 file Not on file Not on file Last Filed Vital Signs Vital Sign Reading Time Taken Comments Blood Pressure 118/72 02/16/2025 1:53 PM EDT Pulse 67 02/16/2025 1:53 PM EDT Temperature - - Respiratory Rate - - Oxygen Saturation 97% 02/16/2025 1:53 PM EDT Inhaled Oxygen Concentration - - Weight 93 kg (205 lb) 02/16/2025 1:53 PM EDT Height 157.5 cm (5' 2 ) 02/16/2025 1:53 PM EDT Body Mass Index 37.49 02/16/2025 1:53 PM EDT Plan of Treatment Upcoming Encounters Date Type Department Care Team (Late st Contact Info) Description 02/09/2026 9:30 AM EDT Ancillary Procedure [facility] [address] [place] [address] 02/09/2026 10:00 AM EDT Office Visit [facility] [address] [place] [address] Beena Dubose MD [address] [place] [address] Health Maintenance Due Date Last Done Comments CT Colonography 1969 FIT-DNA 1969 FIT 1969 FOBT 1969 Sigmoidoscopy 1969 HPV/Cotest 1999 Cervical Cancer Screening 12/11/2023 Pap Smear 12/11/2023 12/11/2020 Mammogram 02/21/2026 02/21/2025, 11/24, 12/12/2022, Additional history exists Colonoscopy 11/15/2030 11/15/2020 Colorectal Cancer Screening 11/15/2030 Influenza Vaccine Discontinued Procedures Procedure Name Priority Date/Time Associated Diagnosis Comments BI MAMMOGRAM SCREENING TOMOSYNTHESIS BILATERAL Routine 02/21/2025 6:41 PM EDT Screening mammogram, encounter for LIPID PANEL Routine 02/14/2025 9:46 AM EDT Essential hypertension (CMS/HCC) Screening for lipid disorders COMPREHENSIVE METABOLIC PANEL Routine 02/14/2025 9:46 AM EDT Essential hypertension (CMS/HCC) Stage 2 chronic kidney disease Hypertensive nephropathy (CMS/HCC) Screening for diabetes mellitus (DM) CEA Routine 02/10/2025 9:19 AM EDT Thickened endometrium CA 125 Routine 02/10/2025 9:19 AM EDT Thickened endometrium MICROALBUMIN / CREATININE URINE RATIO Routine 02/10/2025 Essential hypertension (CMS/HCC) Stage 2 chronic kidney disease Hypertensive nephropathy (CMS/HCC) PATHOLOGY REPORT Routine 02/03/2025 2:34 PM EDT History of endometrial ablation Pelvic pain in female Thickened endometrium US PELVIS TRANSVAGINAL Routine 02/03/2025 2:29 PM EDT Pelvic pain Cyst of left ovary THINPREP TIS PAP AND HPV MRNA E6/E7 REFLEX HPV 16,18/45 ([id number]) Routine 12/11/2020 COLONOSCOPY Routine 11/15/2020 12:00 PM EST Encounter for screening for malignant neoplasm of colon from Last 3 Months or Most Recently Relevant to Health Maintenance Results * Bilateral screening mammogram with tomosynthesis (02/21/2025 6:41 PM EDT) Anatomical Region Laterality Modality Breast Bilateral Mammography 02/23/2025 9:50 AM EDT Impressions 02/23/2025 9:57 AM EDT Impression: No specific evidence of malignancy seen in either breast. BIRADS 2 - Benign Findings DENSITY: There are scattered areas of fibroglandular density. FOLLOW-UP: Routine Screening Mammogram ELECTRONICALLY SIGNED BY: Porter Ann M.D. Narrative 02/23/2025 9:57 AM EDT Examination: BI MAMMOGRAM SCREENING TOMOSYNTHESIS BILATERAL Clinical [...] are noted bilaterally which appear grossly unremarkable. Procedure Note Porter Ann MD - 02/23/2025 Examination: BI MAMMOGRAM SCREENING TOMOSYNTHESIS BILATERAL Clinical History: screen breast ca Technique: Screening digital mammography study of both breasts wasperformed with 2-D and 3-D tomosynthesis imaging. Study was compared tothe prior exam dated 12/12/2023. Findings: There is no evidence of interval dominant spiculated mass,grouped microcalcifications, or skin thickening which would be suggestiveof malignancy. A few benign-appearing calcifications are seen on the left. Partiallyvisualized axillary lymph nodes are noted bilaterally which appear grosslyunremarkable. IMPRESSION: Impression: No specific evidence of malignancy seen in either breast. BIRADS 2 - Benign Findings DENSITY: There are scattered areas of fibroglandular density. FOLLOW-UP: Routine Screening Mammogram ELECTRONICALLY SIGNED BY: Porter Ann M.D. Shemar Rocha MD IMG BI PROCEDURES Final Resu lt * Lipid panel (02/14/2025 9:46 AM EDT) Blood Venous blood specimen / Unknown Shemar Rocha MD LAB BLOOD ORDERABLES Final R esult Performing Organization Address City/[facility]/ZIP Co de Phone Number [facility] * Comprehensive metabolic panel (02/14/2025 9:46 AM EDT) Blood Venous blood specimen / Unknown Shemar Rocha MD LAB BLOOD ORDERABLES Final R esult [facility] * CA 125 (02/10/2025 9:19 AM EDT) CA125 Cancer Ag 10.8 0.0 - 38.1 U/mL [facility] Comment: [facility] Electrochemiluminescence Immunoassay (ECLIA) Values obtained with different assay methods or kits cannot be used interchangeably. Results cannot be interpreted as absolute evidence of the presence or absence of malignant disease. Blood Venous blood specimen / Unknown 02/10/2025 9:19 AM EDT 02/10/2025 Narrative [facility] - 02/11/2025 6:07 AM EDT Performed at: [address] [place] [id number] Claim Taker: Tee Guzmán PhD, Phone: [phone] Beena Dubose MD LAB BLOOD ORDERABLES Final Res ult Performing Organization Address [facility] Co de Phone Number [facility] * CEA (02/10/2025 9:19 AM EDT) Pathologist [facility] CEA 1.3 0.0 - 4.7 ng/mL [facility] Comment: Nonsmokers <3.9 Smokers <5.6 [facility] Electrochemiluminescence Immunoassay (ECLIA) Values obtained with different assay methods or kits cannot be used interchangeably. Results cannot be interpreted as absolute evidence of the presence or absence of malignant disease. Blood Venous blood specimen / Unknown 02/10/2025 9:19 AM EDT 02/10/2025 Narrative [facility] - 02/11/2025 6:07 AM EDT Performed at: [address] [place] [id number] Claim Taker: Tee Guzmán PhD, Phone: [phone] Beena Dubose MD LAB BLOOD ORDERABLES Final Res ult Performing Organization Address [facility]/ZIP Co de Phone Number [facility] * Microalbumin / creatinine urine ratio (02/10/2025) MICROALBUMIN, URINE 4.6 [facility] ALB/CREAT RATIO 3 [facility] URINE CREAT 154.1 [facility] Urine Urine specimen obtained by clean catch procedure / Unknown 02/10/2025 Shemar Rocha MD LAB URINE ORDERABLES Edited Result - Final [facility] * Pathology Report (02/03/2025 2:34 PM EDT) Material Submitted: Comment [facility] Comment: Material submitted: . endometrium - ENDOMETRIAL BIOPSY Diagnosis: Comment [facility] Comment: Diagnosis: ENDOMETRIUM, BIOPSY: - PREDOMINANTLY BLOOD AND MUCUS WITH ACUTE INFLAMMATORY CELLS. - INSUFFICIENT/NO ENDOMETRIAL TISSUE PRESENT FOR MICROSCOPIC EXAMINATION. [facility] 02/07/2025 1356 Local Electronically Signed: Comment [facility] Comment: Electronically signed: . Juan F Regan MD, Pathologist Gross Description: Comment [facility] Comment: Gross description: . RECEIVED IN FORMALIN LABELED WITH THE PATIENT'S NAME IS A 0.3 X 0.3 X 0.1 CM AGGREGATE OF IRREGULAR FRAGMENTS OF BROWN DOMINGUEZ SOFT AND MUCOUS TISSUE. SUBMITTED ENTIRELY IN 1 CASSETTE(S). [facility] 02/04/2025 1334 Local Pathologist Provided ICD10 Comment [facility] Comment: Pathologist provided ICD-10: Z98.890, R10.2, R93.89 CPT Comment [facility] Comment: CPT . [id number] Other 02/03/2025 2:34 PM EDT 02/04/2025 Narrative [facility] - 02/08/2025 3:07 PM EDT Performed at: 01 - [facility] [id number] Claim Taker: Juan F Regan MD, Phone: [phone] us Beena Dubose MD LAB PATHOLOGY ORDERABLES Final Result [facility] * US pelvis transvaginal (02/03/2025 2:29 PM EDT) Anatomical Region Laterality Modality Pelvis Ultrasound Beena Dubose MD IMG US PROCEDURES Final Result * THINPREP TIS PAP AND HPV MRNA E6/E7 REFLEX HPV 16,18/45 ([id number]) (12/11/2020) CLINICAL INFORMATION: None given [facility] LMP: None given [facility] PREV. PAP: None given [facility] PRE[facility]. BX: None given [facility] SOURCE: Cervix, Endocervix [facility] STATEMENT OF ADEQUACY: SEE COMMENT [facility] Comment: Satisfactory for evaluation. Endocervical/transformation zone component present. INTERPRETATION/RE SULT: Negative for intraepithelial lesion or malignancy. [facility] INFECTION: Shift in vaginal ky suggestive of bacterial vaginosis. [facility] COMMENT: This Pap test has been evaluated with computer assisted technology. [facility] DIE FORGER: SEE COMMENT [facility] Comment: BRUCE VELARDE(ASCP) CT screening location: [place] [address]. COMMENT SEE COMMENT [facility] Comment: EXPLANATORY NOTE: The Pap is a screening test for cervical cancer. It is not a diagnostic test and is subject to false negative and false positive results. It is most reliable when a satisfactory sample, regularly obtained, is submitted with relevant clinical findings and history, and when the Pap result is evaluated along with historic and current clinical information. HPV MRNA E6/E7 Not Detected Not Detected [facility] Comment: This test was performed using the APTIMA HPV Assay ([employer] This assay detects E6/E7 viral messenger RNA (mRNA) from 14 high-risk HPV types (16,18,31,33,35,39,45,51,52,56,58,59,66,68). The analytical performance characteristics of this assay have been determined by [employer]. The modifications have not been cleared or approved by the FDA. This assay has been validated pursuant to the CLIA regulations and is used for clinical purposes. 12/11/2020 Cris Hong DO [facility] Final Resu lt [facility] * Colonoscopy (11/15/2020 12:00 PM EST) Anatomical Region Laterality Modality Endoscopy 11/15/2020 12:0 0 PM EST Narrative 11/15/2020 12:00 PM EST PERFORMED AT [facility] LOCATION:[id number] Procedure Note CONVERSION, GENERIC - 04/09/2023 PERFORMED AT [facility] LOCATION:[id number] Abhi Dooley DO ENDOSCOPY PROCEDURE ORDER LORNA Final Result from Last 3 Months or Most Recently Relevant to Health Maintenance Insurance VITA MATAMOROS Advance Directives Documents on File Type Date Recorded Patient Quality Facilitator Expl anation Advance Directives and Living Will 10/25/2020 2020-01-19 Advance Directives Care Teams Assistant Passenger Locomotive Engineer Relationship Specialty Start Date End Date Shemar Rocha MD [address] [place] [id number] PCP - General Family Medicine 02/03/25
--- OUTSIDE RECORDS SUMMARY | 2025-04-13 12:58 | XMS_ITS | Encounter Summary ---
Author Organization [facility] Address [address] [place] [address] Care Team Providers Care Coroner Technician Name Role Phone Shemar Rocha MD Primary Care Provider + [phone] Shemar Rocha MD Primary Care Provider + [phone] Reason for Visit * Reason Onset Date Comments Med Refill 09/19/2024 Encounter Details Date Type Department Care Team (Late st Contact Info) Description 09/19/2024 Refill [facility] [address] [place] [address] Shemar Rocha MD [address] [place] [address] (Fax) Primary hypertension (CMS/HCC) Social History Tobacco Use Types Packs/Day Years Used Date Smoking Tobacco: Former Cigarettes Smokeless Tobacco: Never Comments:Last smoked : 5-10 years Alcohol Use [...] week 11/05/2023 How often do you attend jehovah's witness or uatsdin serv ices? Patient declined 11/05/2023 Do you belong to any clubs o r organizations such as jehovah's witness groups, unions, fraternal or athletic groups, or [...] Date Recorded Patient Health Questionnaire-2 Score 0 09/14/2024 Hunger Vital Sign Answer Date Recorded Worried [...] or rent on time? Patient refused 11/05/20 Number of Places Lived in the Last Year Not on f ile 11/05/2023 In the last 12 months, was t here a time when you did not have a steady place to sleep or slept in a penitentiary (including now)? 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 Not on file Not on file documented as of this encounter Plan of Treatment Upcoming Encounters Date Type Department Care Team (Late st Contact Info) Description 02/09/2026 9:30 AM EDT Ancillary Procedure [facility] [address] [place] [address] 02/09/2026 10:00 AM EDT Office Visit [facility] [address] [place] [address] Beena Dubose MD [address] [place] [address] documented as of this encounter Visit Diagnoses Diagnosis Primary hypertension (CMS/HCC) Unspecified essential hypertension documented in this encounter Care Teams Coroner Technician Relationship Specialty Start Date End Date Shemar Rocha MD PCP - General Family Medicine 06/11/23 02/02/25 Shemar Rocha MD [address] [facility] [address] [place] [address] PCP - General Family Medicine 02/03/25 documented as of this encounter
--- OUTSIDE RECORDS SUMMARY | 2025-04-13 12:58 | XMS_ITS | Encounter Summary ---
Author Organization [facility] Address [address] [place] [address] Care Team Providers Care Bench Precision Assembler Name Role Phone Shemar Rocha MD Unavailable [phone] Shemar Rocha MD Primary Care Provider + [phone] Shemar Rocha MD Primary Care Provider + [phone] Encounter Details Date Type Department Care Team (Late st Contact Info) Description 05/28/2023 Abstract [facility] [address] [facility] [place] [address] Shemar Rocha MD [address] [place] [id number] Social History Tobacco Use Types Packs/Day Years Used Date Smoking Tobacco: Never Assessed Comments Unknown Sex and Gender Information Value Date Recorded Sex Assigned at Not on file Legal Sex Female 8:05 PM EDT Gender Identity Not on file Sexual Orientation Not on file documented as of this encounter Plan of Treatment Upcoming Encounters Date Type Department Care Team (Late st Contact Info) Description 02/09/2026 9:30 AM EDT Ancillary Procedure [facility] [address] [place] [address] 02/09/2026 10:00 AM EDT Office Visit [facility] [address] [place] [address] Beena Dubose MD [address] [place] [address] documented as of this encounter Visit Diagnoses Not on filedocumented in this encounter Care Teams Bench Precision Assembler Relationship Specialty Start Date End Date Shemar Rocha MD [address] [place] [address] PCP - [facility] 02/22/2211/23 Shemar Rocha MD [address] [facility] [address] [place] [address] PCP - General Family Medicine 06/11/23 02/02/25 Shemar Rocha MD [address] [facility] [address] [place] [address] PCP - General Family Medicine 02/03/25 documented as of this encounter
--- OUTSIDE RECORDS SUMMARY | 2025-04-13 12:58 | XMS_ITS | Encounter Summary ---
Author Organization [facility] Address [address] [place] [address] Care Team Providers Care Insole Beveler Name Role Phone Shemar Rocha MD Unavailable [phone] Shemar Rocha MD Primary Care Provider + [phone] Shemar Rocha MD Primary Care Provider [phone] Encounter Details Date Type Department Care Team (Late st Contact Info) Description 06/23/2023 Abstract [facility] [address] [place] [address] Shemar Rocha MD [address] [address] (Fax) Social History Tobacco Use Types Packs/Day Years Used Date Smoking Tobacco: Former Cigarettes Smokeless Tobacco: Never Tobacco Cessation:Counseling Given: Not Answered Comments:Last smoked : 5-10 years Alcohol Use Standard Drinks/Week Comments Yes 2 (1 standard drink = 0.6 oz pure alcohol) Caffeine intake: 2-3 cups per day Education Answer Date Recorded [...] 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 No / Unsure 06/19/2023 2:45 PM EDT documented as of this encounter Plan of Treatment Upcoming Encounters Date Type Department Care Team (Late st Contact Info) Description 02/09/2026 9:30 AM EDT Ancillary Procedure [facility] [address] [place] [address] 02/09/2026 10:00 AM EDT Office Visit [facility] [address] [place] [address] Beena Dubose MD [address] [place] [address] documented as of this encounter Visit Diagnoses Not on filedocumented in this encounter Care Teams Insole Beveler Relationship Specialty Start Date End Date Shemar Rocha MD [address] [place] [address] [address] PCP - [place] [employer] 02/22/2211/23 Shemar Rocha MD [address] [place] [address] [address] PCP - General Family Medicine 06/11/23 02/02/25 Shemar Rocha MD [address] [address] PCP - General Family Medicine 02/03/25 documented as of this encounter
--- OUTSIDE RECORDS SUMMARY | 2025-04-13 12:58 | XMS_ITS | Encounter Summary ---
Author Organization [facility] Address [address] [place] [address] Care Team Providers Care Boxing Promoter Name Role Phone Shemar Rocha MD Primary Care Provider + [phone] Shemar Rocha MD Primary Care Provider + [phone] Encounter Details Date Type Department Care Team (Late st Contact Info) Description 11/01/2024 Orders Only [facility] [address] [place] [address] Shemar Rocha MD [address] [place] [address] Equivocal stress test (Primary Dx); Precordial chest pain; Family history of heart disease; Essential hypertension (CMS/HCC) Social History Tobacco Use Types [...] week 11/05/2023 How often do you attend anabaptism or quaker serv ices? Patient declined 11/05/2023 Do you belong to any clubs o r organizations such as anabaptism groups, unions, fraternal or athletic groups, or [...] place to sleep or slept in a snf (including now)? 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 Not on file Not on file Not on file documented as of this encounter Plan of Treatment Upcoming Encounters Date Type Department Care Team (Late st Contact Info) Description 02/09/2026 9:30 AM EDT Ancillary Procedure [facility] [address] [place] [phone] 02/09/2026 10:00 AM EDT Office Visit [facility] [address] [place] [phone] Beena Dubose MD [address] [place], [place] [id number] documented as of this encounter Visit Diagnoses Diagnosis Equivocal stress test- Primary Precordial chest pain Precordial pain Family history of heart disease Essential hypertension (CMS/HCC) Unspecified essential hypertension documented in this encounter Care Teams Boxing Promoter Relationship Specialty Start Date End Date Shemar Rocha MD (Fax) PCP - General Family Medicine 06/11/23 02/02/25 Shemar Rocha MD [address] [address] PCP - General Family Medicine 02/03/25 documented as of this encounter
--- OUTSIDE RECORDS SUMMARY | 2025-04-13 12:58 | XMS_ITS | Encounter Summary ---
Author Organization [facility] Address [address] [place] [address] Care Team Providers Care Warp Bleaching Vat Tender Name Role Phone Shemar Rocha MD Primary Care Provider + [phone] Shemar Rocha MD Primary Care Provider + [phone] Encounter Details Date Type Department Care Team (Late st Contact Info) Description 09/15/2024 Orders Only [facility] [address] [place] [address] Steven, [place], [place] Encounter for screening mammogram for malignant neoplasm of breast Social History Tobacco Use Types Packs/Day Years [...] week 11/05/2023 How often do you attend sabianism or latter-day serv ices? Patient declined 11/05/2023 Do you belong to any clubs o r organizations such as sabianism groups, unions, fraternal or athletic groups, or [...] place to sleep or slept in a longterm (including now)? 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 Not on file Not on file documented as of this encounter Plan of Treatment Upcoming Encounters Date Type Department Care Team (Late st Contact Info) Description 02/09/2026 9:30 AM EDT Ancillary Procedure [facility] [address] [place] [phone] 02/09/2026 10:00 AM EDT Office Visit [facility] [address] [place] [address] Beena Dubose MD [address] [place] [address] documented as of this encounter Visit Diagnoses Diagnosis Encounter for screening mammogram for malignant neoplasm of breast documented in this encounter Care Teams Warp Bleaching Vat Tender Relationship Specialty Start Date End Date Shemar Rocha MD PCP - General Family Medicine 06/11/23 02/02/25 Shemar Rocha MD [address] [place] [address] PCP - General Family Medicine 02/03/25 documented as of this encounter
--- OUTSIDE RECORDS SUMMARY | 2025-04-13 12:59 | XMS_ITS | CCD ---
Author Organization [facility] Care Team Providers Care Learning And Development Assistant Name Role Phone Arnol Bill Attending Unavailable Arnol Bill Admitting Unavailable SHEMAR NUNEZ Consulting Unavailable SHEMAR NUNEZ Primary Care Unavailable SHEMAR NUNEZ Attending Unavailable SHEMAR NUNEZ Admitting Unavailable SHEMAR NUNEZ Primary Care Unavailable Arnol Bill Attending Unavailable Arnol Bill Admitting Unavailable Provider, None Primary Care Unavailable Shemar Nunez MD Primary Care Provider Shemar Nunez MD Primary Care Provider Shemar Nunez MD Primary Care Provider [phone] ALEXEY PETTIT Attending Unavailable ALEXEY PETTIT Attending Unavailable SHEMAR NUNEZ Attending Unavailable SHEMAR NUNEZ Attending Unavailable SHEMAR NUNEZ Referring Unavailable ALEXEY PETTIT Attending Unavailable SHEMAR NUNEZ Attending Unavailable Allergies Allergy Classification Reported Allergen(s) Allergy Type Date of Onset Reaction(s) Facility (1 source) Pseudoephedrine; Translations: [pseudoephedrine ] Drug Allergy [facility] Repository (1 source) colophony; Translations: [colophony] Propensity to adverse reactions to drug (disorder) 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 Take 1 tablet [...] Active Start: 01-09-2024 take 1 capsule by [facility] once daily progesterone 200 MG [...] Long-term current use of drug therapy; Translations: [alf (current) use of antithrombotics/anti platelets] 08-24-2024 Episodic [...] UA Negative Negative - 4(70) +++ mg/dL [facility] Blood, UA Negative Negative - 50 Derek/mcL [facility] Clarity, UA Clear [facility] Color, UA Yellow [facility] Glucose, UA Negative Negative - 1999(110) ++++ mg/dL [facility] Interpretation and review of laboratory results Normal [facility] Ketones, UA Negative Negative - 160(16) ++++ mg/dL [facility] Leukocytes, UA Negative Negative - 500+++ Ed/mcL [facility] Nitrite, UA Negative Negative - Positive [facility] pH, UA 6 5 - 9 [facility] Protein, UA Negative Negative - 1999(20) ++++ mg/dL [facility] Spec Grav, UA 1.01 1 - 1.03 [facility] Urobilinogen, UA 1.0 0.2 - 12 mg/dL [facility] Provider Orderson 11-05-2023 Provider Orders [id number] [facility] [place] [facility]23 Provider Orders [id number][facility] Coding Summaryon 05-29-2023 Coding Summary HTMLBase 64 ZrqvokaoAHf0bBr+PGhl YWQ+MM3LCFAoR77upNMx oT8nI1GXOEkKBfoeHFTH VLkAOvHgedUjAL7fwUFg ZXJu IC8+YK1rODDtMmmlqSXt w2V3aDA2G07vke5wWIbu vBL4MRSpTpDmrwyex7kv eIp4XXsoSxjlSgIi RXJyiN85IAV4uX03Bz36 iATffSLkp3gfkLq0FtBv YJWaILB1iHrsSXsbf6Tm PTClW84yjBMnw8P4 IGNvbGxhcHNlOyBlbXB0 hI3bPNdihzhtg1zpotgf Yol8yr05tYHpn9P4nVT3 D5QsffN1FDUpxFWp JozbyMQTbA4lrdoco1ts pvnyGwAfWPUsGJu5ZKb9 DHOwsUyqQbPwRE51UNA5 MXNxyjVdW7MqXNFj aWpkTkG2q1Y0Ao8SY7RX CnhsK1FZIYQDAFaavAE+ IX40my68D9FcHemmIfq2 LGJgAEO1zYK2lJ7o YYEbKYftf8W9nZM0Y9Kj xnAnym3gg8ofXVUtUCyy B74hnNBnx6E8LLNkgYQ5 PMAskZbhHkOcvY22 Oyc+AXGgaFpuo5KnWbof r7nlw7jybOy8TxaoIRSj gaYfdSofEGI1j2ExSd7z SPRatAG5xOM3gL7o EaFgQlE8HGkuM139KsWt tTHkJkzjZ23wD4FtwCW+ UYPwFpg7YFOllLwpCN2e U7IdQRLmvxlzqUXs qLrnIQ6mWBFipyivDUGh vW7lTAIyT8m6KnEcRaJ4 PFdeT5FpSBTcoiixUb47 hW9jUeTfUnC0VUww A2KhuoF3OXWnwAOyDEbt IXJ6N87bg9T7SKFdNWGh OBS5fTY6bT8meAeocygf bGVmdDsgdmVydGlj VEwmUTxkO549PBFchSrw PkNvZGluZyBEYXRlOiAg MDcvMDYvMjAyMzwvdGQ+ LWQvNDJ4jQlkFAMv gGWlIQuoVc6lvGdgmWqf KW8wQDMwohyzUJHefC3d EEGzbFLhwWfiRZ8mFCRr qlahq963QnOlWXN9 IFVgjSNpE5RwyA0tTiBy WLRkDTIvA3VnvXJqFUfn N763LSirAgX2GVWgeuZu R7BmNZZxkZewWtM9 m3A1Ro5Sy5VqpehlD7Sz eFXkKeYeWlmpCPn9G8Ke PjwvdHI+KW45CBLhDD54 SOf0RNV0gPzlIJya LUFmN4IvxF2qCaLwKWVt ZGRkOyc+PHRhYmxlIHdp ZHRoPScxMDAlJyBzdHls CJ0hRa1tSVHlMZTk xEnvqRBxKgFnr7qmEKCb LJwsEL1lxAjpY9WlkOT5 ORAqi3o2Dk27H27wT2De dXA+PCTcvGS8gZO3 sE0aTtSvAuM2VWvgV713 TgVooMZbExmiu3qok2cp tRs1LtG3LCRlhoYesZhe HTC7v8GoVg53P36s IHdpZHRoPSIxNSUiIHZh mOrutk0jnD2jMt9+PGNv rWH0lTK1mZ8eKfBkRvJ9 TSktN449RvAvjQFn Twtmc7zwm1dhrGy7FaNk VXRniwJneNrzVTK9r3Kg Tr10Q3DjiOmof4FeKnt2 xy25eHKph9K2eWO3 J7SgXXQpejgtkPCbaBsd JS8cVVXrijgeWYKcvM6t CHQzE8a6WyBsSbM8GXco Z0NrywY5FJOpoKHs ZJCwgPTUeO6yfrtkd8yd xvioGjQpLABhQZg6FHi5 CXVflQjwUrWgJZZ5NuZ3 LSL4nZRrbM1anJgy pldlkY1vNxn+BKW2zZWk dCDBUA2hDyocfNQ+PHRk DFH8vFqxBDiiJPBhfU8d HPCkE3j6YcXoFiY4 QNciX6GmlcG2WTLbuYAl QSLugISXoQ0gnoito3xx ijyjXyDwNERfMSv5ALc9 LWFsaWduOiBsZWZ0 CqY4ZWY2yMTokW1piMqk mozlzL1rXjp+QmlydGgg TAC0TKt0L4ZqEeb5MFDt lPcxSE9yiMJpWMhg Ec3uhBealNqmPP7rDVXq yeoxr046GcDsd5mdGCYc aELbEPatMBE7T27md2K0 ASQmALOuWDS5xBU8 sE5uoAbufaefzGIduQxh mlFrgVisGImcVVflF322 TWWivXaiMlJtCZk8V6Pv Ikl5PTMacDedSC6j rYPrCBayCq3rlKkskEmb EJ9nZGDmhqnjo144ViVu m8bnICJkxJLrLTsoYXF2 V63yd0A0IPRjBHWy CLN4kOG9tC4siPaxqbpj bGVmdDsgdmVydGljYWwt QUoxK846NFStsLkxGtSh lAc9T4IcAyf1UOUe sSzdFO3hjAFvZYivGj0k cQeqrXhtPL3fGMNigypf i399XvBgp7fvRHNvcPSb NMkbXFS3M71nj0Q2 KDHzIUZwFDC8gAN1qS5o bGlnbjogbGVmdDsgdmVy hSfoWGqbWUslR686THPm cDsnPlBhdGllbnQg YJgtNPj7J2MlKscfsQY+ LU54CNKnLV05gXXpuMVm k3oiwMj5DhGtQRDeTIQ4 qMliDQvlj7TgSXWz M32ouMJfm0V2ZYLubZdh jVQoKnRciXV6yK2sPRho vxzyc2eyxnshEhbwx3au kv10wY68Y88jQJqp ZHRoPSIzMCUiIHZhbGln zf1bhM8aIq8+PGNvbCB3 zYC6xU9gFIDkHwJ7LJqb T372PaDozFBlUjun h7rsy0prvXc4TeS3DKUd epYnpTggOSE0c5ZoJx07 D58xMMxdDSOrSTXnRHPe APIesSljid9dzC1o Ii8+UOTvnSN6xEB1uF3j OeOkWiX5KGxjF692UzKc vNYwQyyiM82eA2HivWD+ PGJlWim4CGDqiJgt BW7imUBtFCqmXm9oIOW6 CbLwOkPzHEnjT4WvHGTp ohododfswMG3FMUgPPMo zX69So8koVprUIRq aIQZiX9qicxkr3fdisim CzPpNFZmQVt4CXz2OYPi lWvbXbThDUF3GlY9LWS6 oEJtmI7zwLzbpnzr sM2uF1InHWYqvibkMs79 hC3oFrJtOtQ6LQssGlz+ W2dIQSSWVFcNV8UcQYNE XRFGJNvYIq24C1Sv Dbi0GCHdbHmfPX8boKAe FZpuAn6dwDhrkTlvOE1w WRJztxgcIJKnqQ8kJEVk kJHuxQusST6xWRSt lztyt103XdMmQUT7BPBo cCElW0BimE9yJtWtKNWl PMOjI5CymJMwJFsqA962 YBstSfM4CUTlrnTc M7BzWDXprRhbFkL4v7V5 Ph2sHY4aAX0fZHR9DZ08 MW42tGBux3U5pDV5Y6Ak ZGRpbmctcmlnaHQ6 RUGrLQKeoV17mHCfLGvw Dc2zg5K9b601YDRqUWUt oF90Qo0yjXxcYJEzkACQ uX9mzomuh8eebjsq DfXmJGSeSLd3JXg4MBTj wZnuLxRyGOE4IyG2VZB2 sQPufB4ivFzxvdzqkZ4x Oyc+NTMgWWVhcnM8 G2FqKpa5JWCrgUjxIQ6f qKCxVDdgBs0ufMqnuAhq RL0qZGQkfapkQJEumS1g DNUmbMOplSweFX0q FDTwlktkw513YoOdPME7 FLCmvJSxW3EypT6yLiNv MYHvDFAiT6UntOCeOGqn T292LHwxXjG2ESWn okBkT5ArHZXetVrqNwM3 f2I6Kg5CPB3OODF6H3Pl Mhs4UEVonOqrGT5pgIOu YVssNu9cpVcljEan GH2pHMRzaqfqWYEppK1v HMGcqNVwxHbhJA0bYMCk sgels553XjOfCNO0KZKi pVPpV8KlqQ8yRfPz PWZqTLFnM4LsxSYpTBpt J752KJmhXvA0TCKgmuLq Y6WeXYQvgFobKqD2o0X3 Km7QaDGyK9KcT5b7 F5CzSoxmwMR+XY23VBRx GX44vXVkwVHyr8laeMs8 SwFmMWFiOJF2bMcwHJdx e7KsLEIeT21dwYYw k3E6IGYhdEscnOKxXdVm xWD6bJ5pCZrolpumb7kc gybrQylpw6zsxe69rR14 X39sZTfcGWSlXGUc JDCzZTJmjAksui7ahX8m Ii8+HAZfnIX1oDI9dM0i AmRpBaW0QCldQ420ZhHc tEYdMemhe6kyl1ek pCz9HeIiGZGbnsTefGkk CJU0s4KjKw61Y45qIEsv ZHRoPSIyMCUiIHZhbGln wu6nqW6fZt0+PC9j y9qxsq78pE50wAA+PHRk DSG7yUamXRecKDTlsV5k EFpuVoK1NFTuNmMnwL11 dQKzFLkvVw3iqKsx pUifUG2kJWZaweedi041 LiQbc5bcIIBqeJFsQKru FZV9J09nr0K4TRIuWSYd UPP7hTV2tP7kqFkf bjogbGVmdDsgdmVydGlj EEmzDWijA881ONBshZjs NcUhqJGaM1gnmnWCVB6e OjwvdGQ+PHRkIHN0 xXomICiaRVIqqG6dHKBq C4j8CnEyAfG0UMkjU2Qp ceI0CICnkFZqADYdqKFF iI5kknktn5jmwfwm WmOoPCQdMWv7BKs9LZNt mPesGbGgILU6LhC9NTO5 dNMtpC3jjYbmztqvvL7t Oyc+RklOOjwvdGQ+ COEyADX8pKduBQpwTUJl wY6uOIFdO7g1BoFwCmH4 LFjgA6LwhfA6RCCxnDRv ITPusOUSaL3fgidy f3sxtlpzUgDrOGCzTGf7 UKn7JNZloGqzRzBaGBN5 DpR4JSN3uVZvmO8zgRxu yaryrI0yPlg+TVJO OjwvdGQ+YRCyMUV5mTir HVvkRPRynI9iBZSwM5a1 BhTgNvG6QYflO5DcinP6 IGJvbGQgMTBwdCBU gR1fasfkt9voqaykJlQr QJCpXAs6AQf5OKGgrIjo XuGyTLM6AnY1NYC3vNNt cN0pdDgzbkzdeE8d Oyc+ANT5EUP1FR59ZY24 G5NoQxnoiJVxkKT+PHRh YmxlIHdpZHRoPScxMDAl DeNehGaxNH0aVe2x ZGV (more content not included)... [facility] Coding Summary HTMLBase 64 GyhilqatRUx8cRn+PGhl YWQ+WF7LLDTzY60zzFPi yS7aO4MYLXnYCrnzSDUE DKzRJpRtuaZdGF3qbHDd ZXJu IC8+BQ8xANKcNuxioKMh c7S9zDT9Q83xwp5fYCve mFB9ABJcFnYfrnggc6jo pIq3OYygKnmtPeSa HFTsiI55OHQ4lR69Hu92 uJRyzFDqn8rnpHh1LxVy HRApGWD0iIrrBMxqc6Ux NGEpE98haBTmz6E9 IGNvbGxhcHNlOyBlbXB0 cZ3zYDqhfjrtu3hddtzg Qza0we85bUHqx5U5mYR2 Z6VssnD4SJXgdJBx TsvkpNLByC5yakzub3zb kiyrUyVuNUJlNNb4QKr5 DUZoeWhaGyXlFZ37YAV7 YZFwavAkG2GzPGJe fWzbJjF2h2R0Et7PV9GN TklrQ2OIWDBHQDadcQU+ AM52bl73X4RhIzngIuu7 UKBkCHD8vHS9wZ7m BEWnECclf1T7qHE9G1Eb evCzdy0vh8cxNSZgWHoa N27myFEls5U9SRPreSB0 ONXqdRgqArAdwX08 Oyc+RPKavEerd2SbXcfm e6vrh9zqrGz9VkzmRQUk hgVwsJvoFIB6g1ZaPy2j RBEcqGM9bRN6bY9t RxPkQvQ5PDviZ589GpOq tNAjMgjuU71qA3YaoXF+ GJPuTxv1QVEmkWrsCM7w G9MgNCCenxzopCMe uGbhRY8eHKDmolxwHEIl nC3fWOZyO7g2ZbLpInO9 YInzL8ZyCXGadujcMd83 gE1fBkLmKpI6CFzx N9JgspZ4SMCmzFYsAOwr LYO6V71xa1J4IMNrJNRm HIF2wVW6qT1fcXqczmrs bGVmdDsgdmVydGlj MDeeTRtdS208CZFjxHab PkNvZGluZyBEYXRlOiAg MDcvMDYvMjAyMzwvdGQ+ NASvWWT1fLsrDJXp nHDgLPmsVo1qgRtesTtw XU5vWQMkmokuKCDszR9e RWCspCKfzHgjGF2cOWNc kducj127ScRrORO7 MWNdjPBgJ2LnaN4cKmYd RUOuRCZyN5MatWOwZSru I042WEgxFtC1EMBhmsOz V8YwQJJjwDweAsK5 d8I4Zx6Ng7AcjqfhT1Lm lXLsOdRaObkkHBz1C8Qc PjwvdHI+NX98BWKhWP99 BSs2UKR4zXabTZfo TYAoA4DxzH3gYnFoEVAt ZGRkOyc+PHRhYmxlIHdp ZHRoPScxMDAlJyBzdHls NS7eBb6pXZRpZFKy eOpwpBJjDoJwt5zbRGXj CYuvLQ8lcBicE9KifNB2 GIEqf9u1Jw16E95eT8Rx dXA+QHXlwBJ8uDM5 sE1jOsSxDnM2EJqfY336 DhWyqJCtRtnkn8pxq3xa xJf8ArN3YIFmghTodVpr QFA0a2WkRg28Y59i IHdpZHRoPSIxNSUiIHZh yKushq5qsW8sPt7+PGNv iJP6hQW1kN6jUjPpRyA3 ZRmqT690BcVigPDk Iihti3rbs1umoZa7FiJv NSDbqkNmwMgdSCF8j7Sn Zc67L8HwiNyyw6DjZwy1 cs06lLGth7S8kON8 X2OhEOLfetpnyNJteZgk HQ0rRSDcmkvcVEFoqI2p IGFiI8z2NrTsKoO1KGdz K8IlujU7HBPjdWSw BQUvjKCGnE7pghjpm1br nkirTiXpUDPmJIn0KVl1 IVIahSsoCnKeOAT5OxU8 CFM3kBDwdC9aeEpm zwjkhK2vTwk+LCV3rDFt iJLIDL8pWbxwsBB+PHRk BUR7zRmgRNbuTVWxjQ4k VPPfX6g4MyAySmE6 DFcxZ3PotgU5HEIleZJi PMOvsIWGvI5shvugn2ts qunuUjNqBQQhCOd5HFu2 LWFsaWduOiBsZWZ0 BhX6ETZ6oUBbiF1bjGrg thqvqM6uOiy+QmlydGgg JAD4IAg4I9SxShd0PIZm uUwbDC8wjHSvVCoc Rp1hwRpgsEjbUA8vZJId irinn025HnCkv9btUPGa oMGkRKhjFVZ0C47fy8Q3 AUKvFBMqVOO0gDC9 vI8shMxmnvfztDHbiKpl nqGcdDgkQLrnOAigU302 DCDgxEsxZgEhKRm3N8Io Fei4CRMgyWokEN3v mLSeWDlwFl6hnDcxjZsx IK1uDDKfvlelj236YfOp g4mnKNWbbPWvODnlLES1 V74rt3H0UWCkAOLe APY6oZY1uO7ifWnxbisa bGVmdDsgdmVydGljYWwt BKvtR429QXKolFboNuTh hCj1C0UiMbw2TMPo fLlrLS1rcEHnJIkuJr3a dYsftEgzNA2tOGIsljkn f690JuGom2qyBOQpuGWo RRldXBI2Z89oy0F1 UXIsIOTrNNT8iYT2sC5a bGlnbjogbGVmdDsgdmVy iXsvOBfoIBlwQ102SAXd cDsnPlBhdGllbnQg KCstHLc1B2GaUabamCX+ BX78ZDWnAA07lMFzmZTs m8kxzKi8PpKmURLaUGD0 wKmdNIgoa5JdOAWj Q84bhREkc1J8QQLhsFqs vGJyRfEgpYJ3tL2qYZhp zczig8qlebmpKjfch2jm rm73zP99R80gODts ZHRoPSIzMCUiIHZhbGln qx0veJ3bCl9+PGNvbCB3 kCQ1jW6wMJHrYoR1MAsg Z756NsGsbJCuOwad s3edz1urnEy0PxW7NGDj nzCuuMycSPK0m3AgBy19 M51aZReiELUzLCAgOFSr XEWazFcrqt0ppH2p Ii8+IVDbpJJ7zOB9yR5b TtAkHiI9LCycB991ReWk dWSmSpwnG73dW8RdxQX+ YEPlSby6JETidLew QD7azDLeENhyHb9gPTG8 BfXaYoTmSXoeX9NuKPWr vjmobdtfvVJ9HLOkFXEd gL32Hs8szFnpWSPi nGNTcW5ybhnxe7tmyxfu TmEqLDIbZJz9DUv9WGAf zEefOjDkPJB9VpU6YGC2 wPSfmJ6tfBeliiul fH6iU0IcQQJhzabpTt20 uW7wRaOzUuT6JCgzOfs+ H1uCIVAJDNoGE7IeNMNR LGDCNGzGKd68C0Tx Mml0LZPdtOusLC0zbQCo MMneSr1yySufaIqzMG2j MOWhtvviEKBjmQ1bBVNi dTFukOweJM5uKYPa jodpl318XsIpQUG9JYTg fMLeJ8BaoY8zPgKgLYOw DGGeM9DoiVAwGSpwU616 ZRaqGwP4AXVihvHy S9BgRDRgkCukSdJ0a0Q1 Dp6eBE1bXU6jVKX1NE42 JY58vNYms2A9gLG5T5Kq ZGRpbmctcmlnaHQ6 DZYzHOIcbL98nUZdSTzd Pc0ui3L5e099ODNcAVLo hG89Wo9afGdyXBDttJXY mD7dxrogg1tzjjjg XxIgXWFrDTm1IAp6RKUd gFngRsFmWJQ2JyL0DCI0 fDLjgY6smWczncmxyZ6k Oyc+NTMgWWVhcnM8 Z8ErNlj9MKSdnPvsCO3u lOGyXQvjBh8idHpvoRkj FQ4jBBXsuwcvWEMpqS7x AMQmmCQgmTljZT1z LSKfamotb740FcLoDNP1 UDHueBNeN8YjjN6oJkUh AYToNQPrX1DzuYOsETey H871ZOgrLtA9MUNc zzJgC5RvGEPchObmJbA3 x7C3By7DRP2UQTJ9R8Be Yxq4JMPwzSucSN3xdMOg XYjdWp0coVcrmGeq LN1rNZZofqsmLMUsmM1o IEBlwYDnuCisVH8rCCVd wbmyy568JxIbWXF8KUFi mBMkO8YyzY9oQpBb YZMuUIOjT0GspHDjPErt Y993VYuyUdQ0HSYbipNf S4SjSGYinHzpBtX9h1W0 Pf5LDEbpkVE+PC90 wx27O7PyHeqjPdl7LVIl ENT1mZU7rG4kVZFsMRox a4J0iTB9E6XzybBzqp3w k9deRAFqLUkgU63x gHSnb9Y4USCljEO3MEKm pZaoObGmoC85Ahl+PGNv zAaur9RnMtdhj1ctq6fz iWj3BvTaOSDqhuFb yCymEQB4h4RgSu66M84h IHdpZHRoPSIzMCUiIHZh tTwfbb6riB7bAz5+PGNv wZD9fBX5kT5iWnEs QaV7YHfnC231TbJcmUHg Ulkqu9gij5yniNz7NwUr YVSlgaUpnXanVQF6l4Ph Zf60R1RfrXsdc9Pc Vda3rj85uBDot8X3hOY1 A3FcYVZgxuvftXZejGzq CR5oSSEtussaULWfhQ0j WFKqT4f2WhIyEpK0 WTgsU1ArhmI1LFNmcOVl JSVkrFRZpW1dxpnay6fl zpzbIgEmOQRqFUu2BHi9 LWFsaWduOiBsZWZ0 DuB0LLL5iAYdjE2ugYln txtpmS8yGbu+INr2e3oj hXNbRR9azPL1LQ91BF62 pTCue0X5pIJ2A5Rd UAMoalfmlqkvaXH2LGCn AFZerW48Cj3lqElyNu5k WVFnXVR9TCHnvGFbV1Mi hF1nQvKtMQBlWUUu T5RslHEwUHeeE637GRtr MoG7LBZzlsSwP4NlHVAa hPjxHnB9c6C7Sb4RRL68 EE44IL01dZXxm5X1 fAC9X3XuFKCfnszjtxiz yCU1MBGcATGpvJ59Gj3w qQzwHk4ePXSjBCO2KOZk gETgC6UxyS9rZqGx ZVTcVWAbV1TynSPqOXdw R511BFxrUyM6WGXghrSe Y2IjCDSxvLjyFwB7z5X4 Af2IEy91HW55RW99 oDYcn2T0hIM3B9BsONHi iisrtisxgOB5HLDyEQEf oE02Sh6iuIxnDu6rJXKe CFN8RFXvvAQiY7Ya xU1sXzZkNQYgLFGxB1Xy sDGjEJcjX565AEecNiZ7 EBKcbrSdJ9WaPREmqDvs GnK4b6J5Tg0CGYmh dnp2P6ImXboovFI+PC90 YGFoIA29hPTsfWCjb3uj lYy6ZpKjDRRwZKK7sNvk UGzvm9WrPNEfP20d [facility] (more content not included)... [facility] US RUQon 05-26-2023 US RUQ CLINICAL HISTORY: [...] MD 05/28/23 2:40 pm Technologist: JAMA ALLRED [facility] ED Clinical Summaryon 2022 ED Clinical Summary [facility] - Emergency Department [address] [place] [address] ED Clinical Summary PERSON INFORMATION Name: PILI OREILLY Age: 52 Years Sex: FEMALE : 1970 MRN: Acct#: Visit Reason: Chest pain; Body aches; ABDOMINAL/CHEST PAIN Arrival: 05/22/2023 20:02:36 Discharge: 05/22/2023 22:53:00 LOS: 000 02:51 Check In: 05/22/2023 20:02:36 Checkout:05/22/2023 22:53:00 Address: [address] [place] [address] PCP: Provider, None PROVIDER INFORMATION Provider Role Assigned Unassigned Arnol Bill DO ED Provider 05/22/2023 20:11:20 Berenice Causey KEY SANDER Nurse 05/22/2023 20:40:02 VITALS INFORMATION Vital Sign [...] Adult Follow-Up: With: Address: When: Cole Billings [address] [place], [place] [id number] [facility] (1) In 3 days 05/25/2023 With: Address: When: None Provider [address] [place] [address] Within 3 to 5 days Comments: home return as needed One pain pill for home, if needed Obtain Ultrasound follow up with your physician, or Dr Cole Billings, Gen Surgeon, [facility] Return, if fever, vomit, or unrelieved pain T H OMLEY< ER PHYSICIAN< H B [facility] DIAGNOSIS: Intermittent upper abdominal pain Patient Understands: Yes - Patient/family/careg iver verbalizes understanding of instructions given Comment: [facility] ED Note - Otheron 05-23-2023 ED Note - Other [id number] #1.00OTGTIFF [facility] ED Note - Other [id number] #1.00OTGTIFF [facility] ED Patient Summaryon 023 ED Patient Summary [facility] - Emergency Department [address] [place] [address] [id number] PATIENT DISCHARGE INSTRUCTIONS Patient Information Name: PILI OREILLY Age: 52 Years Date of : 1970 Reason For Visit: Chest pain; Body aches; ABDOMINAL/CHEST PAIN Arrival Time: 05/22/2023 20:02:36 Primary Care Physician: Provider, None Attending Physician: Arnol Bill DO Comment: Visit Diagnosis: Diagnoses This Visit Body aches ([id number]) Chest pain ([id number]) Intermittent upper abdominal pain (R10.10) The Pharmacy at [facility] is open Friday through Friday from [...] alcohol and/or drug addiction problems; contact the [facility] 16/06 Crisis Hotline -Text 4HMCG jq 238074. If you received any narcotics, sedation, or [...] legal documents With: Address: When: Cole Billings [address] [place], [place] [id number] Business (1) In 3 days 05/25/2023 With: Address: When: None Provider [address] [place] [address] Within 3 to 5 days Comments: home return as needed One pain pill for home, if needed Obtain Ultrasound follow up with your physician, or Dr Cole Billings, [facility] Surgeon, [facility] Return, if fever, vomit, or unrelieved pain T H ZAIDA< ER PHYSICIAN< H B [facility] Medication Information: The exam and treatment you received today in the [facility] Emergency Department were for an urgent problem and are not intended as complete care. It is important for you to follow up with a doctor, nurse practitioner, or physician?s kindergarten assistant for ongoing care. If your symptoms [...] so we can reach you if necessary. [facility] Emergency Department has provided you with a complete list of medications post discharge. Please inform your medical director of hospice/provider of your visit and for further instruction on these medications. Any specific questions regarding your chronic medications and dosages should be discussed with your primary care physician(s) and/or pharmacist. New Medications Printed Prescriptions [facility] Prescription (ultrasound right upper quad) for upper [...] Height/Length Es (more content not included)... Normal [facility] Electronic Messagingon 05-23 Electronic Messaging --- --- --- --- --- --- --- --- --- From: Tyrone ([email or web address]), Directtest To: PILI OREILLY Sent: 05/23/23 05:44:46 AM EDT Subject: Discharge Summary Ready to View A summary regarding your recent visit is available in the Documents section of your Health Record. Normal [facility] Lipaseon 05-23-2023 Lipase Level 44.0 IU/L Normal 22.0-51.[address] [facility] Comment on above: Performed By: #### 2 645994, [id number], 2839638, 1727221368, 61542915, [id number], [id number] ####[facility] (DEFAULT)[address] [place] [address] .Auto Diff 1on 05-22-2023 Auto Kimball % 8 % Normal 1-[address] [facility] Comment on above: Performed By: #### 2 818472, [id number], 4597191, 1004113673, 07650356, 1429239521, [id number] ####[facility] (DEFAULT)[address] [place] [address] Baso Abs# 0.0 x10 Normal 0.0-0.[address] [facility] Comment on above: Performed By: #### 2 240176, [id number], 3890342, 9792347152, 41547015, 9667224286, 3387843566 ####[facility] (DEFAULT)[address] [place] [address] Basophils/100 WBC (Bld) 0.7 % Normal 0.2-2.[address] [facility] Comment on above: Performed By: #### 2 658477, [id number], 1251900, 3643520997, 54564273, 0393980483, [id number] ####[facility] (DEFAULT)[address] [place], [place] [address] Eos Abs# 0.2 x10 Normal 0.0-0.[address] [facility] Comment on above: Performed By: #### 2 144506, [id number], 7685560, 1390565535, 96344906, 5338268482, 7907716232 ####[facility] (DEFAULT)[address] [place] [address] Eosinophils/100 WBC (Bld) 3.5 % Normal 0.9-4.[address] [facility] Comment on above: Performed By: #### 2 008824, [id number], 3900838, 0445704889, 02579351, 9663107087, 0731346102 ####[facility] (DEFAULT)[address] [place] [address] Lymph Abs# 1.1 x10 Low 1.3-2.[address] [facility] Comment on above: Performed By: #### 2 119043, 6463768017, 4415935, 3230339331, 55203323, 0524439051, [id number] ####[facility] (DEFAULT)[address] [place] [address] Lymphocytes/100 WBC (Bld) 23 % Normal 14-[address] [facility] Comment on above: Performed By: #### 2 851335, 1640250224, 3666652, 8773581657, 73210465, 8265328643, 9019164083 ####[facility] (DEFAULT)[address] [place] [address] Kimball Abs# 0.4 x10 Normal 0.0-0.[address] [facility] Comment on above: Performed By: #### 2 890378, 3281918970, 9705085, 5985977947, 70059883, 7317669408, 5881699440 ####[facility] (DEFAULT)[address] [place] [address] Neut Abs# 3.1 x10 Normal 1.5-9.[address] [facility] Comment on above: Performed By: #### 2 450044, 1643462095, 0134979, 7083750961, 38227326, 8502286016, 6218300887 ####[facility] (DEFAULT)[address] [place] [address] Neutrophils/100 WBC (Bld) 65 % Normal 44-[address] [facility] Comment on above: Performed By: #### 2 426183, 1371129233, 6785284, 4783571611, 73252184, 3488954978, 4924161401 ####[facility] (DEFAULT)[address] [place] [address] CBC w/ Auto Diffon 3 Erythrocyte distribution width (RBC) [Ratio] 13.8 % Normal 11.5-15.[address] [facility] Comment on above: Performed By: #### 2 082531, 7489845035, 9176925, 9336214247, 17435687, 9762728883, 2572252385 ####[facility] (DEFAULT)[address] [place] [address] Hematocrit (Bld) [Volume fraction] 40.8 % High 33.7-40.[address] [facility] Comment on above: Performed By: #### 2 107788, 4435340097, 4688216, 4360588326, 64364340, 6956344342, 2936941270 ####[facility] (DEFAULT)[address] [place] [address] Hemoglobin (Bld) [Mass/Vol] 13.7 g/dL Normal 11.3-15.[address] [facility] Comment on above: Performed By: #### 2 110791, 2004963876, 2698562, 4914611463, 32511487, 1428854843, 3230017950 ####[facility] (DEFAULT)[address] [place] [address] MCH (RBC) [Entitic mass] 29 pg Normal 24-[address] [facility] Comment on above: Performed By: #### 2 615692, 1360902258, 7691890, 8511122894, 84946157, 7828900807, 2741646827 ####[facility] (DEFAULT)[address] [place] [address] MCHC (RBC) [Mass/Vol] 34 g/dL Normal 26-[address] [facility] Comment on above: Performed By: #### 2 150101, 5412078406, 5109156, 8240972235, 01464275, 0834022235, 5755352480 ####[facility] (DEFAULT)[address] [place] [address] MCV (RBC) [Entitic vol] 87 fL Normal 81-[address] [facility] Comment on above: Performed By: #### 2 626950, 8099287482, 8678373, 3913314545, 88846265, 6254961933, 0293051721 ####[facility] (DEFAULT)[address] [place] [address] Platelet 249 x10 Normal 138-[address] [facility] Comment on above: Performed By: #### 2 908628, 6794808779, 4872471, 1718383429, 38104950, 7023113893, 3998155081 ####[facility] (DEFAULT)[address] [place] [address] Platelet mean volume (Bld) [Entitic vol] 7.9 fL Normal 6.3-10.[address] [facility] Comment on above: Performed By: #### 2 400777, 0501353216, 8721296, 8459072940, 47346786, 2913086665, 3368440057 ####[facility] (DEFAULT)[address] [place] [address] RBC 4.68 x10 Normal 3.70-5.[address] [facility] Comment on above: Performed By: #### 2 992121, 8246110105, 0718060, 3035119179, 04603547, 6327155130, 3921361247 ####[facility] (DEFAULT)[address] [place] [address] WBC 4.7 x10 Normal 3.5-10.[address] [facility] Comment on above: Performed By: #### 2 065535, 0998381480, 7485068, 4922191514, 47279607, 3339412752, 6982899517 ####[facility] (DEFAULT)[address] [place] [address] Man Diff? Auto Invalid Interpretation Code [facility] Comment on above: Performed By: #### 2 000435, 0490596405, 5398144, 9440280284, [id number], [id number], [id number] ####[facility] (DEFAULT)[address] [place] [address] CMP Standardon 05-22-2023 eGFR Non AA 49 mL/min/1.73m2 Invalid Interpretation Code [facility] Comment on above: Performed By: #### 2 167000, [id number], 2951799, 6980853551, 80937535, 7896373320, [id number] ####[facility] (DEFAULT)[address] [place] [address] eGFR AA 60 mL/min/1.73m2 Invalid Interpretation Code [facility] Comment on above: Performed By: #### 2 443073, [id number], 7437115, 0836549065, 20417182, 7587658658, [id number] ####[facility] (DEFAULT)[address] [place] [address] 44624 Albumin/Globulin [Mass ratio] 1.2 {ratio} Low 1.4-2.[address] [facility] Comment on above: Performed By: #### 2 650797, [id number], 4505679, 3012526420, 32976865, 6515465839, [id number] ####[facility] (DEFAULT)[address] [place] [address] 12608 Anion gap [Moles/Vol] 10.6 mmol/L Normal 5.0-19.[address] [facility] Comment on above: Performed By: #### 2 107428, [id number], 2849238, 6080321463, 64099118, 1873837744, 2737798768 ####[facility] (DEFAULT)[address] [place] [address] 42417 Globulin (S) [Mass/Vol] 3.1 g/dL Normal 1.5-4.[address] [facility] Comment on above: Performed By: #### 2 978601, [id number], 9711467, 2380058506, 21561350, 3034717867, 0661235883 ####[facility] (DEFAULT)[address] [place] [address] Osmolality 279 mOsm/L Invalid Interpretation Code [facility] Comment on above: Performed By: #### 2 236572, [id number], 2741296, 6400669302, 93467464, 1559327111, [id number] ####[facility] (DEFAULT)[address] [place] [address] Urea nitrogen/Creatinine [Mass ratio] 18.2 mg/mg High 4.6-16.[address] [facility] Comment on above: Performed By: #### 2 313644, 6751531426, 8286777, 6593371372, 64549925, 2429873642, 1195887031 ####[facility] (DEFAULT)[address] [place] [address] Albumin [Mass/Vol] 3.9 g/dL Normal 3.5-5.0 [facility] Comment on above: Performed By: #### 2 715330, [id number], 7040393, 6441554591, 72034037, 5680789972, 3336039205 ####[facility] (DEFAULT)[address] [place] [address] 78425 Alk Phos 89 IU/L Normal 32-[address] [facility] Comment on above: Performed By: #### 2 891915, 4089865235, 7229237, 5595961036, 55795280, 1943585478, 5519524351 ####[facility] (DEFAULT)[address] [place] [address] 17410 ALT [Catalytic activity/Vol] 108.0 U/L High 14.0-54.[address] [facility] Comment on above: Performed By: #### 2 415977, 3710529300, 0803687, 2278308364, 07083882, 3546645394, 8521771859 ####[facility] (DEFAULT)[address] [place] [address] 96956 AST [Catalytic activity/Vol] 98 U/L High 15-[address] [facility] Comment on above: Performed By: #### 2 620645, 5207540608, 5044878, 4206329088, 38279294, 1134371386, 5639874283 ####[facility] (DEFAULT)[address] [place] [address] 72780 Bili Total 0.8 mg/dL Normal 0.3-1.[address] [facility] Comment on above: Performed By: #### 2 644793, 6945832136, 3422067, 5837838811, 10509139, 8703254352, 5460636214 ####[facility] (DEFAULT)[address] [place] [address] 53713 Calcium [Mass/Vol] 9.1 mg/dL Normal 8.9-10.3 [facility] Comment on above: Performed By: #### 2 810918, 4981413557, 4917252, 1372914043, 89698507, 3548281680, 8071849062 ####[facility] (DEFAULT)[address] [place] [address] 75006 Chloride [Moles/Vol] 107 mmol/L Normal 101-[address] [facility] Comment on above: Performed By: #### 2 390610, 7609325244, 2283215, 8714156994, 18594130, 3805987874, 9015749674 ####[facility] (DEFAULT)[address] [place] [address] 18004 CO2 [Moles/Vol] 24 mmol/L Normal 21-[address] [facility] Comment on above: Performed By: #### 2 343354, 8155355485, 7583505, 9631343510, 17589069, 6282573595, 9269515659 ####[facility] (DEFAULT)[address] [place] [address] 22309 Creatinine [Mass/Vol] 1.15 mg/dL Normal 0.60-1.[address] [facility] Comment on above: Performed By: #### 2 795850, 6964722812, 0343385, 9630619982, 03634139, 7002334883, 0160409735 ####[facility] (DEFAULT)[address] [place] [address] 19823 Glucose [Mass/Vol] 99.0 mg/dL Normal 74.0-118.0 [facility] Comment on above: Performed By: #### 2 489536, 1394304372, 0627686, 9576806837, 33906712, 6332860785, 8295854423 ####[facility] (DEFAULT)[address] [place] [address] 05072 Potassium [Moles/Vol] 3.6 mmol/L Normal 3.6-5.[address] [facility] Comment on above: Performed By: #### 2 865335, 2824035869, 2419513, 5501429513, 60131095, 0427112590, 3224568212 ####[facility] (DEFAULT)[address] [place] [address] 21512 Protein [Mass/Vol] 7.0 g/dL Normal 6.5-8.1 [facility] Comment on above: Performed By: #### 2 192554, 2349097431, 3472898, 8833069564, 82935836, 8348917529, 2765586899 ####[facility] (DEFAULT)[address] [place] [address] 87296 Sodium [Moles/Vol] 138.0 mmol/L Normal 136.0-144.0 [facility] Comment on above: Performed By: #### 2 798726, 4134294428, 8669181, 1142694195, 70344417, 6698624817, 4175683391 ####[facility] (DEFAULT)[address] [place] [address] 81477 Urea nitrogen [Mass/Vol] 21 mg/dL Normal 8-[address] 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 Disposition: Discharged: time 05/22/2023 22:24:00. Prescriptions: Launch prescriptions Pharmacy: ultrasound right upper quad (Prescribe): See Instructions, for upper abd pain, 1 EA, 0 Refill(s), Launch prescriptions Pharmacy: [facility] #1 Tab acetaminophen-oxyCOD ONE 325 mg-5 mg (Order): 1 packet(s), PO, Once. Patient was given the follow (more content not included)... Normal [facility] Extra Redon 05-22-2023 Tube Collected Yes Invalid Interpretation Code [facility] Comment on above: Performed By: #### 2 964205, [id number], 6342148, 6603737103, 84054908, 0127441817, 4053023391 ####[facility] (DEFAULT)[address] [place] [address] TnI HSon 05-22-2023 Troponin I High Sensitivity <2.3 Normal <=15.[address] [facility] Comment on above: Performed By: #### 2 576523, 6464154710, 3403386, 8270162836, 79657859, 1292071572, 6361594285 ####[facility] (DEFAULT)[address] [place] [address] SCREENING MAMMOGRAM W/JUSTIN, BILATERAL*on 12-12-2022 SCREENING MAMMOGRAM [...] VERY IMPORTANT TO YOUR HEALTH. THE CURRENT [place] [employer] AND [employer] GUIDELINES RECOMMENDS ANNUAL MAMMOGRAPHY BEGINNING AT AGE 40 THIS FACILITY USES A REMINDER SYSTEM TO ENSURE ALL PATIENTS RECEIVE REMINDER NOTIFICATIONS AT THE APPROPRIATE TIME BASED ON THE RECOMMENDATIONS OF THIS EXAM. Board Certified Radiologist. Accredited by the ACR and FDA. Report reported and signed by Haile Arroyo on 12/16/2022 0953 Normal [facility] Complete Blood Counton 02-01 Erythrocyte distribution width (RBC) [Ratio] 12.9 % Normal 11.0-15.0 [facility] Comment on above: Performed By: #### C BC #### [facility] [address] [place], [place] [id number] Hematocrit (Bld) [Volume fraction] 42.8 % Normal 35.0-47.0 [facility] Comment on above: Performed By: #### C BC #### [facility] [address], [place] [id number] Hemoglobin (Bld) [Mass/Vol] 14.1 g/dL Normal 11.6-15.5 [facility] Comment on above: Performed By: #### C BC #### [facility] [address], [place] [id number] MCH (RBC) [Entitic mass] 29.9 pg Normal 27.0-33.0 [facility] Comment on above: Performed By: #### C BC #### [facility] [address], [place] [id number] MCHC (RBC) [Mass/Vol] 32.9 g/dL Normal 32.0-36.0 [facility] Comment on above: Performed By: #### C BC #### [facility] [address], [place] [id number] MCV (RBC) [Entitic vol] 91 fL Normal 80-100 [facility] Comment on above: Performed By: #### C BC #### [facility] [address], [place] [id number] Platelet mean volume (Bld) [Entitic vol] 9.90 fL Normal 7.50-12.50 [facility] Comment on above: Performed By: #### C BC #### [facility] [address], [place] [id number] Platelets (Bld) [#/Vol] 273 10*3/uL Normal 140-400 [facility] Comment on above: Performed By: #### C BC #### [facility] [address], [place] [id number] RBC (Bld) [#/Vol] 4.72 10*6/uL Normal 3.90-5.20 [facility] Comment on above: Performed By: #### C BC #### [facility] [address], [place] [id number] RDW-SD 42.6 fL Normal 37.0-50.0 [facility] Comment on above: Performed By: #### C BC #### [facility] [address], [place] [id number] WBC (Bld) [#/Vol] 4.6 10*3/uL Normal 3.8-11.[address] [facility] Comment on above: Performed By: #### C BC #### [facility] [address], [place] [id number] Hemoglobin A1Con 02-01-2022 EAG 116.89 Normal [facility] Comment on above: Performed By: #### A 1C #### [facility] [address], [place] [id number] HbA1c (Bld) [Mass fraction] 5.7 % Normal 4.0-6.0 [facility] Comment on above: Performed By: #### A 1C #### [facility] [address], [place] [id number] Ernesto 04-25-2021 L Specimen: [id number] Received: 04/25/21 Status: STEPHEN Dillon Num: [id number] Spec Type: Surgical Subm Dr: ANAYELI WHALEY DO Tissues: A Ovary - Cyst, Non-Neoplastic (LT OVARY) B Endometrium - Curettings (EMC) Procedures: HE Stain/3, Gross/Micro L4/2 Patient Age/Sex Location Account Attending Physician ArguetaOsmanPili Ervin 50/F [place] [id number] JOVANAANAYELI DO SPEC NUM: [id number] RECD: 04/25/21 STATUS: STEPHEN DILLON NUM: [id number] SUMAYA: 04/25/[address] [facility] [address]: ANAYELI WHALEY DO ENTERED: 04/25/21 [facility] DR: Daquan [facility] SPEC TYPE: Surgical DEPT: [...] in one cassette labeled B1. (YJ) Specimen: [id number] Received: 04/25/21 Status: STEPHEN Wilma Num: [id number] Spec Type: Surgical Subm Dr: ANAYELI WHALEY DO Tissues: A Ovary - Cyst, Non-Neoplastic (LT OVARY) B Endometrium - Curettings (EMC) Procedures: HE Stain/3, Gross/Micro L4/2 Patient: Pili Nino [id number] (Continued) Specimen: [id number] Received: 04/25/21 (Continued) Signed (signature on file) Luis Zavala MD 04/26/21 1150 Specimen: [id number] Received: 04/25/21 Status: STEPHEN Dillon Num: [id number] Spec Type: Surgical Subm Dr: ANAYELI WHALEY DO Tissues: A Ovary - Cyst, Non-Neoplastic (LT OVARY) B Endometrium - Curettings (EMC) Procedures: HE Stain/3, Gross/Micro L4/2 Patient: KendallOsmanArcadioPili Andersen [id number] (Continued) Specimen: [id number] Received: 04/25/21 (Continued) Microscopic Description A. One glass slide with H E stained material has been examined. The microscopic findings support the above pathologic diagnosis. B. Two glass slides with H E stained material have been examined. The microscopic findings support the above pathologic diagnosis. CPT Codes 89278?2 Specimen: [id number] Received: 04/25/21 Status: STEPHEN Dillon Num: [id number] Spec Type: Surgical Subm Dr: ANAYELI WHALEY DO Tissues: A Ovary - Cyst, Non-Neoplastic (LT OVARY) B Endometrium - Curettings (EMC) Procedures: HE Stain/3, Gross/Micro L4/2 Patient: Pili Nino [id number] (Continued) Signed (signature on file) Luis Zavala MD 04/26/21 1150 [facility] Vital Signs Date Time Vital Sign Value Performing Clinician Faci jerryy 02-16-2025 13:53-0400 Body height 157.5 cm Shemar Nunez MD Work Phone: [facility] 02-16-2025 13:53-0400 Body mass index (BMI) [Ratio] 37.49 kg/m2 Shemar Nunez MD Work Phone: [facility] 02-16-2025 13:53-0400 Body weight 92.99 kg Shemar Nunez MD Work Phone: [facility] 02-16-2025 13:53-0400 Diastolic blood pressure 72 mm[Hg] Shemar Nunez MD Work Phone: [facility] 02-16-2025 13:53-0400 Heart rate 67 /min Shemar Nunez MD Work Phone: [facility] 02-16-2025 13:53-0400 SaO2% (BldA) [Mass fraction] 97 % Shemar Nunez MD Work Phone: [facility] 02-16-2025 13:53-0400 Systolic blood pressure 118 mm[Hg] Shemar Nunez MD Work Phone: [facility] 11-11-2024 15:36-0500 Body height 157.5 cm Shemar Nunez MD Work Phone: [facility] 11-11-2024 15:36-0500 Body mass index (BMI) [Ratio] 38.23 kg/m2 Shemar Nunez MD Work Phone: [facility] 11-11-2024 15:36-0500 Body weight 94.8 kg Shemar Nunez MD Work Phone: [facility] 11-11-2024 15:36-0500 Diastolic blood pressure 76 mm[Hg] Shemar Nunez MD Work Phone: [facility] 11-11-2024 15:36-0500 Heart rate 86 /min Shemar Nunez MD Work Phone: [facility] 11-11-2024 15:36-0500 SaO2% (BldA) [Mass fraction] 97 % Shemar Nunez MD Work Phone: [facility] 11-11-2024 15:36-0500 Systolic blood pressure 126 mm[Hg] Shemar Nunez MD Work Phone: [facility] 09-14-2024 16:12-0400 Body mass index (BMI) [Ratio] 38.23 kg/m2 Alexey Pettit MD Work Phone: [facility] 09-14-2024 16:12-0400 Body weight 94.8 kg Alexey Pettit MD Work Phone: [facility] 09-14-2024 16:12-0400 Diastolic blood pressure 60 mm[Hg] Alexey Pettit MD Work Phone: [facility] 09-14-2024 16:12-0400 Systolic blood pressure 110 mm[Hg] Alexey Pettit MD Work Phone: [facility] 08-23-2024 15:21-0400 Diastolic blood pressure 74 mm[Hg] Shemar Nunez MD Work Phone: [facility] 08-23-2024 15:21-0400 Systolic blood pressure 122 mm[Hg] Shemar Nunez MD Work Phone: [facility] 08-18-2024 14:10-0400 Body mass index (BMI) [Ratio] 38.78 kg/m2 Alexey Pettit MD Work Phone: [facility] 08-18-2024 14:10-0400 Body weight 96.16 kg Alexey Pettit MD Work Phone: [facility] 08-18-2024 14:10-0400 Diastolic blood pressure 64 mm[Hg] Alexey Pettit MD Work Phone: [facility] 08-18-2024 14:10-0400 Systolic blood pressure 100 mm[Hg] Alexey Pettit MD Work Phone: [facility] Encounters Encounter Date Encounter Type Care [...] 100 Comment on above: Elevated LDL cholest sudnay level (CMS/HCC) (Primary Dx); Primary hypertension (CMS/HCC); [...] disease; Precordial chest pain; Primary hypertension (CMS/HCC); alf current use of antithrombotics/antiplatelets Start: 08-23-2024 End: 08-23-2024 Bamboo flowsheet Shemar Nunez MD Work Phone: [facility] Start: 08-23-2024 End: 08-23-2024 BamAirphrameo Enclarityheet Shemar Nunez MD Work Phone: [facility] Start: 08-18-2024 End: 08-18-2024 ambulatory ALEXEY PETTIT Not Available Start: 08-18-2024 End: 08-18-2024 Patient encounter status Alexey Pettit MD Work Phone: [facility] Start: 08-18-2024 End: 08-18-2024 Periodic preventive med est patient 40-64yrs Alexey Pettit MD Work Phone: [facility] Comment on above: Screening for malign ant neoplasm of cervix (Primary Dx); History of endometrial ablation; Cyst of left ovary; Pelvic pain in female; Encounter for screening mammogram for malignant neoplasm of breast; Encounter for gynecological examination without abnormal finding; Constipation, unspecified constipation type Start: 07-28-2024 End: 07-28-2024 Telephone encounter Alexey Pettit MD Work Phone: [facility] Start: 11-25-2023 End: 11-25-2023 ambulatory SHEMAR NUNEZ Facility:[facility] Start: 05-26-2023 End: 05-27-2023 ambulatory [facility] Facility:[facility] Start: 05-22-2023 End: 05-23-2023 Emergency department patient visit [facility] Facility:[facility] Procedures Date Procedure Procedure Detail Performing Clinician [...] Screening for malign ant neoplasm of colon [facility] Start: 02-21-2026 Screening for malign ant neoplasm of breast Mammogram [facility] Start: 02-09-2026 End: 02-09-2026 Patient encounter procedure 02/09/2026 10:00 AM EDT Office Visit [facility] [address] [place] [address] Alexey Pettit MD [address] [place] [address] [facility] Start: 02-09-2026 End: 02-09-2026 Professional / ancillary services management 02/09/2026 9:30 AM EDT Ancillary Procedure [facility] [address] [place] [address] [facility] Start: 08-19-2025 End: 02-16-2026 Lipid 1996 panel - Serum or Plasma Lipid panel Lab Routine Elevated LDL cholesterol level (CMS/HCC) Expected: 08/19/2025 (Approximate), Expires: 02/16/2026 [facility] Work Phone: Comment on above: Expected: 08/19/2025 (Approximate), Expires: 02/16/2026 Start: 02-21-2025 End: 02-21-2025 Professional / ancillary services management 02/21/2025 6:30 PM EDT Ancillary Procedure [facility] [place] [address] [place] [address] [facility] [place] Start: 02-16-2025 End: 02-16-2025 Patient encounter procedure [facility] Comment on above: Essential hypertensi on (CMS/HCC); Hypertensive nephropathy (CMS/HCC); Stage 2 chronic kidney disease; Morbid obesity (CMS/HCC) Start: 01-17-2025 End: 01-17-2025 Patient encounter procedure 01/17/2025 3:45 PM EST Procedure Visit [facility] [address] [place] [address] Alexey Pettit MD [address] [place] [address] [facility] Start: 01-17-2025 End: 01-17-2025 Professional / ancillary services management 01/17/2025 3:00 PM EST Ancillary Procedure [facility] [address] [place] [address] [facility] Start: 12-18-2024 End: 10-18-2025 DBT Breast - bilateral screening Bilateral screening mammogram with tomosynthesis Imaging Routine Encounter for screening mammogram for malignant neoplasm of breast Expected: 12/18/2024, Expires: 10/18/2025 [facility] Work Phone: Comment on above: Expected: 12/18/2024 , Expires: 10/18/2025 Start: 12-12-2024 Screening for malign ant neoplasm of breast Mammogram [facility] Start: 11-11-2024 End: 01-12-2026 MG Breast - bilateral Screening Bilateral screening mammogram Imaging Routine Screening mammogram, encounter for Expected: 11/11/2024, Expires: 01/12/2026 [facility] Work Phone: Comment on above: Expected: 11/11/2024 , Expires: 01/12/2026 Start: 11-04-2024 End: 11-04-2024 Patient encounter procedure 11/04/2024 2:00 PM EST Office Visit [facility] [address] [place] [address] Shemar Nunez MD [address] [place] [address] [facility] Start: 09-14-2024 End: 09-14-2024 Patient encounter procedure 09/14/2024 3:45 PM EDT Office Visit [facility] [address] [place] [address] Alexey Pettit MD [address] [place] [address] [facility] Start: 09-14-2024 End: 09-14-2024 Professional / ancillary services management 09/14/2024 3:00 PM EDT Ancillary Procedure [facility] [address] [place] [address] [facility] Start: 08-23-2024 End: 08-23-2024 Patient encounter procedure 08/23/2024 3:00 PM EDT Office Visit [facility] [address] [place] [address] [place] [address] Shemar Nunez MD [address] [place] [address] (Fax) [facility] Start: 08-23-2024 End: 08-23-2025 Cardiac stress study Procedure STRESS TEST TREADMILL Imaging Routine Essential hypertension (CMS/HCC) Family history of heart disease Precordial chest pain Expected: 08/23/2024 (Approximate), Expires: 08/23/2025 [facility] Work Phone: Comment on above: Expected: 08/23/2024 (Approximate), Expires: 08/23/2025 Start: 08-18-2024 End: 08-18-2024 Patient encounter procedure 08/18/2024 2:00 PM EDT Office Visit [facility] [address] [place] [address] Alexey Pettit MD [address] [place] [address] [facility] Start: 07-25-2024 Influenza vaccination Influenza Vacc ine (#1) [facility] Start: 12-11-2023 Screening for malign ant neoplasm of cervix [facility] Start: 1999 Screening for malign ant neoplasm of cervix HPV/Cotest [facility] Start: 1969 Screening for malign ant neoplasm of colon [facility] SENDOUT TEST MISCELLANEOUS [facility] SENDOUT TEST MISCELLANEOUS [facility] Lab Routine Screening for malignant neoplasm of cervix Encounter for gynecological examination without abnormal finding Ordered: 08/18/2024 [facility] Comment on above: Ordered: 08/18/2024 Payers Date Payer Category Payer Private Health Insurance [employer] MATAM[employer] [id number] 2023 Unknown VITA GORMAN [place] [employer] [id number] 2023-Present [phone] [address] [id number] 2023 Unknown [id number] 2023 Unknown [id number] 1969 Unknown [id number] 2.16.840.1.315637.3.579 .2.718 1969 Unknown [id number] 2.16.840.1.627298.3.579 .2.718 1969 Unknown [id number] 2.16.840.1.329815.3.579 .2.718 1969 Unknown [id number] 2.16.840.1.614850.3.579 .2.9 1969 Unknown [id number] 2.16.840.1.025806.3.579 .2.9 1969 Unknown [id number] 2.16.840.1.269699.3.579 .2.1258 1969 Unknown [id number] 2.16.840.1.412061.3.579 .2.9 1969 Unknown [id number] 2.16.840.1.639751.3.579 .2.9 1969 Unknown [id number] 2.16.840.1.056663.3.579 .2.1258 1969 Unknown [id number] 2.16.840.1.936751.3.579 .2.9 1969 Unknown [id number] 2.16.840.1.300577.3.579 .2.9 1969 Unknown [id number] 2.16.840.1.660928.3.579 .2.9 Social History Date Type Detail Facility Start: 08-25-2023 Tobacco smoking status [facility] Ex-smoke r [facility] History of tobacco [...] Healthcare How often do you att end mandaeism or yarsanism services? Patient declined [facility] How often [...] Anjel Nunez MD - 11/11/2024 3:30 PM oTng Pettit MD - 09/14/2024 3:45 PM Anjel [...] - Lipid panel documented in this encounter [facility] 11-11-2024 History of Presen t illness Narrative Images from the original note were not included. Patient ID: Pili Ervin is a 54 y.o. female who presents for: Adult Wellness: See Scanned Wellness packet Advance Directive/Living Will: Yes Health Care Power of Distance Learning Administrator: Yes Review of Systems Constitutional: Negative for [...] screening mammogram; Future documented in this encounter [facility] 09-14-2024 History of Presen t illness Narrative [...] the treatment plan. 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 - aspirin 81 MG EC tablet; Take 1 tablet (81 mg) by mouth Daily documented in this encounter [facility] 08-18-2024 History of Presen t illness Narrative Images from the original note were not included. Aleexy Pettit MD Obstetrics and Gynecology Patient: Pili [...] visit.Return 1 year documented in this encounter [facility] 07-28-2024 Telephone encount er Note Patient had an abrasion in 2020 with . She had a CT scan last summer or fall for her gallbladder and thought they had seen a cyst on left ovary which she said she has pain. She is okay waiting for her yearly but wanted to inform . [facility] 07-28-2024 Miscellaneous Notes Formattin g of this [...] to inform . documented in this encounter [facility] 05-23-2023 Note Education Materials Gastroenterology Abdominal Pain, [...] these instructions at home: Medicines ? Take asjz-kck-tkdbatk and prescription medicines only as told by [...] your condition for any changes. ? Take llhu-rhm-bbdumfs and prescription medicines only as told by [...] provider. Document Revised: 12/29/2020 Document Reviewed: 03/20/2020 [employer] Patient Education ? 2022 Patient Feed. 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 documented in this [...] (CMS/HCC) Morbid obesity documented in this encounter [facility] Healthcare Summary Purpose Family History No Family History Records FoundNo Family History Records FoundNo Family History Records FoundNo Family History Records Found Advance Directives Documents on File Type Date Recorded Patient Costumed Character Expl anation Advance Directives and Living Will 10/25/2020 2020-01-19 Advance Directives Documents on File Type Date Recorded Patient Costumed Character Expl anation Advance Directives and Living Will 10/25/2020 2020-01-19 Advance Directives Reason for Referral Specialty Diagnoses / Procedures Referred By Contac t Referred To Contact Radiology Diagnoses Essential hypertension (CMS/HCC) Family history of heart disease Precordial chest pain Procedures STRESS TEST TREADMILL Shemar Nunez MD [address] [place] [address] Referral ID Status Reason Start Date Expiration Date V isits Requested Visits Authorized [id number] Authorized 08/23/2024 02/19/2025 1 1 Additional Source Comments INFORMATION SOURCE (unrecogn ized section and content) DATE CREATED AUTHOR 05/03/2021 [facility] DATE CREATED AUTHOR AUTHOR'S ORGANIZ ATION 12/18/2022 [facility] dical Specialist DATE CREATED AUTHOR AUTHOR'S ORGANIZ ATION 01/25/2024 [facility] DATE CREATED AUTHOR AUTHOR'S ORGANIZ ATION 02/26/2025 [facility] dical Specialists EPIC Care Teams (unrecognized sec tion and content) Learning And Development Assistant Relationship Specialty Start Date End Date Shemar Nunez MD [address] [place] [phone] PCP - General Family Medicine 06/11/23 Learning And Development Assistant Relationship Specialty Start Date End Date Shemar Nunez MD [address] [place] [phone] PCP - General Family Medicine 06/11/23 Learning And Development Assistant Relationship Specialty Start Date End Date Shemar Nunez MD [address] [place] [phone] PCP - General Family Medicine 06/11/23 Learning And Development Assistant Relationship Specialty Start Date End Date Shemar Nunez MD [address] [place] [phone] PCP - General Family Medicine 06/11/23 Learning And Development Assistant Relationship Specialty Start Date End Date Shemar Nunez MD [address] [place] [phone] PCP - General Family Medicine 06/11/23 Learning And Development Assistant Relationship Specialty Start Date End Date Shemar Nunez MD (Fax) PCP - General Family Medicine 06/11/23 Learning And Development Assistant Relationship Specialty Start Date End Date Shemar Nunez MD PCP - General Family Medicine 06/11/23 Learning And Development Assistant Relationship Specialty Start Date End Date Shemar Nunez MD [address] [facility] [address] [place] [address] PCP - General Family Medicine 02/03/25 Learning And Development Assistant Relationship Specialty Start Date End Date Shemar Nunez MD [address] [facility] [address] [place] [address] PCP - General Family Medicine 02/03/25 Reason [...] BE BASED ON THE PRIMARY CLINICAL RECORDS. [email or web address] [facility]. provides no warranty or guarantee of the accuracy or completeness of information in this document.
[2025-04-13] MEDS: REGADENOSON 0.4 MG/5 ML SYRINGE IV (13:26)
--- NOTE | 2025-04-13 13:26 | PC.NURSE ---
Nursing Note Cardiac Stress Test Reviewed: Medication, allergies and patient history reviewed. Stress Test: [x ] Patient tolerated stress test well. [ ] Patient unable to tolerate walking on treadmill. Switched to Lexiscan stress test. [x ] No chest pain noted per patient [ ] Chest pain that resolved prior to leaving stress lab. [x ] No dyspnea noted. [ ] Dyspnea that resolved prior to leaving stress lab. [x ] Patient left stress lab asymptomatic and hemodynamically stable. [ ] Patient taken to the Emergency Room due to non-resolving symptoms following stress test. [ ] Patient achieved target heart rate. [ ] Patient unable to achieve target heart rate. [ ] Aminophylline administered as reversal agent to Lexiscan (Regadenoson). [ ] Nitro administered. Nursing Comments:Pt had Lexiscan test done. Pt tolerated well. No issues noted. Pt ambulated to cafeteria for food prior to second set of images.
--- NOTE | 2025-04-14 12:42 | PM.STRESS ---
Stress Test Stress Test Requesting physician: SHAYLEE NUNEZ Procedure: Lexiscan pharmacological stress test General Information: Reason for Stress Test: [Chest pain, shortness of breath] Cardiac History and Risk Factors: [Hypertension] Resting 12 - Lead Electrocardiogram: Normal sinus rhythm Normal ECG Stress Test: Protocol: [Lexiscan pharmacological stress test] Exercise Capacity: [N/A] Blood Pressure Response: [N/A] Rhythm: [Sinus] ST - Response: [No ST-T wave changes] Patient Response: [No symptoms reported] Interpretation: 1. No ischemic EKG changes seen on Lexiscan pharmacological stress test 2. Nuclear images are to be read, interpreted, and reported separately
== END 2025-04-13 12:57 | disposition home or self-care (01) ==
LOC: CARD 12:56
PROVIDERS: PCP Family Medicine; Visit Provider Family Medicine
DX: R07.89 Other chest pain (principal)
CPT/HCPCS: 93017; J2785